=== PATIENT | female | born 1960 | race Caucasian/White ===

== ENCOUNTER → 2019-02-26 | Day surgery (SDC) | payer SELFPAY ==
[2019-02-25 14:18] LABS: BASOPHILS % 0.7 % (0.0-1.0); EOSINOPHILS # (AUTO) 0.1 (0.0-0.4); EOSINOPHILS % 1.8 % (0.0-6.0); HEMATOCRIT 32.6 % (34.2-44.1); HEMOGLOBIN 10.7 g/dL (12.0-16.0); LYMPHOCYTES # (AUTO) 2.1 (1.0-3.2); LYMPHOCYTES % 36.8 % (18.0-39.1); MEAN CORPUSCULAR HEMOGLOBIN 28.2 pg (28-32); MEAN CORPUSCULAR HGB CONC 32.8 g/dL (31-35); MEAN CORPUSCULAR VOLUME 85.8 fL (81-99); MONOCYTES # (AUTO) 0.5 (0.2-0.8); MONOCYTES % 8.1 % (4.4-11.3); NEUTROPHILS % 52.4 % (38.7-80.0); RED CELL DISTRIBUTION WIDTH 17.3 % (11.7-14.4)
[2019-02-25 14:20] LABS: PLATELET COUNT 68 x10e3/uL (140-360)
[2019-02-25 14:26] LABS: INR 1.35; PROTHROMBIN TIME 17.3 seconds (11.9-14.5)
[2019-02-25 14:27] LABS: PARTIAL THROMBOPLASTIN TIME 45.1 seconds (23.8-35.5)
[2019-02-25 14:36] LABS: ALANINE AMINOTRANSFERASE 18 IU/L (0-55); ALBUMIN 3.1 g/dL (3.5-5.0); ALKALINE PHOSPHATASE 187 IU/L (40-150); ANION GAP 10.5 mmol/L (8-16); BLOOD UREA NITROGEN 10 mg/dL (7-26); BUN/CREATININE RATIO 14 (6-25); CALCIUM 8.5 mg/dL (8.4-10.2); CARBON DIOXIDE 24 mmol/L (22-29); CHLORIDE 105 mmol/L (98-107); CREATININE, SERUM 0.69 mg/dL (0.57-1.11); EST GLOMERULAR FILTRATION RATE > 60 ML/MIN (60-); GLUCOSE 115 mg/dL (74-118); POTASSIUM 3.5 mmol/L (3.5-5.1); SODIUM 136 mmol/L (136-145)
[2019-02-25 16:42] LABS: HYPOCHROMASIA MODERATE; RBC MORPHOLOGY COMMENT NORMAL
[2019-02-25 16:43] LABS: PLATELET ESTIMATE MODERATELY DECREASED; POIKILOCYTOSIS SLIGHT
[2019-02-25 16:44] LABS: PLATELET MORPHOLOGY COMMENT NORMAL
[~2019-02-26] MED LIST: BACITRACIN 50,000 UNIT VIAL ONE; CALCIUM500 MG PO; CEFAZOLIN SOD 1 GM/NS 50ML 50 ML IV ONE; CISATRACURIUM BESYLATE IV ONE; DULCOLAX5 MG PO; FAMOTIDINE 20 MG/2 ML VIAL IV ONE; FENTANYL CITRATE/PF 100MCG/2 ML INJ ONE; FUROSEMIDE40 MG PO; HYDROMORPHONE 2MG/ML 2 MG/ML ML ONE; LACTULOSE20 GM/30 M PO; LIDOCAINE HCL 2% LOCAL INJ 5 ML SDV VIAL INJ ONE; METAMUCIL POWD174 GM PO; METOCLOPRAMIDE HCL 10 MG/2ML VIAL ONE; MULTIVITAMINS1 EAC7 PO; ONDANSETRON HCL INJ 2MG/ML 2ML 2 MG/ML VIAL ONE; PROMETHAZINE HCL (IM) 25 MG/ML VIAL ONE; PROPOFOL IV EMULSION 10 MG/ML 20 ML VIAL ONE; SEVOFLURANE INHAL SOLN 250 ML PEN BTL ONE; SODIUM CHLORIDE 0.9% 50ML 50 ML ONE; SPIRONOLACTONE25 MG PO; VITAMIN D400 UNIT PO
--- OUTSIDE RECORDS SUMMARY | 2019-02-26 06:09 | XMS REPORT | Clinical Summary ---
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 Active cetirizine (ZyrTEC) 10 MG Take 10 mg by 0 tablet mouth daily. Active cholecalciferol, vitamin Take 1,000 0 D3, (VITAMIN D3) 1,000 Units by unit tablet mouth. Active furosemide (LASIX) 20 mg Take 20 mg by 0 tablet mouth 2 (two) 7 times a day. Active lactulose (CHRONULAC) 10 Take 20 g by 0 gram/15 mL solution mouth 3 8 (three) times a day. Active montelukast (SINGULAIR) TK 1 T PO QPM 2 10 mg tablet 8 Active ondansetron (ZOFRAN) 4 MG TK 1 T PO Q 6 0 tablet H PRF NAUSEA 8 OR VOM Active pantoprazole (PROTONIX) Take 20 mg by 0 20 MG EC tablet mouth nightly. Active spironolactone Take 50 mg by 0 (ALDACTONE) 50 MG tablet mouth. 7 Active riFAXimin (XIFAXAN) 550 Take 550 mg 0 mg tablet by mouth 2 (two) times a day. Active ursodiol (ACTIGALL) 500 Take 300 mg 0 MG tablet by mouth daily with lunch. Active gabapentin (NEURONTIN) as needed. 2 300 mg capsule 9 Active multivitamin with Take 1 tablet 0 minerals tablet by mouth daily. Active calcium carbonate Chew 1 tablet 0 (CALCIUM 500) 500 mg daily. calcium (1,250 mg) chewable tablet Active psyllium husk (METAMUCIL Take by 0 ORAL) mouth. 07/27/2018 Discontinued calcium carbonate 500 Take 1,000 mg 0 mg/5 mL (1,250 mg/5 mL) by mouth. 07/27/2018 Discontinued cyanocobalamin, vitamin Take by 0 B-12, 1,000 mcg tablet mouth. extended release 07/27/2018 Discontinued GABAPENTIN ORAL Take by 0 mouth. 08/07/2018 oxyCODone (ROXICODONE) 10 Take 1 tablet 28 tablet 0 07/31/201 MG tablet (10 mg total) 9 by mouth every 6 (six) hours as needed for severe pain for up to 7 days. Max Daily Amount: 40 mg 08/17/2018 oxyCODone (ROXICODONE) 10 Take 1 tablet 28 tablet 0 08/10/201 MG tablet (10 mg total) 9 by mouth every 6 (six) hours as needed for moderate pain for up to 7 days. 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 07/30/2018 Encounters Care Team Description Date Type Specialty Tripp Mitchell II, MD S/P revision of total hip 07/30/18 (Primary Dx); Acquired left foot drop 11/11/2018 Office Visit Orthopedic Surgery Tripp Mitchell II, MD S/P revision of total hip 07/30/18 (Primary Dx); Aftercare following left hip joint replacement surgery 08/10/2018 Office Visit Orthopedic Surgery Brandy Escobar NP 07/30/2018 Anesthesia Orthopedic Surgery Event Tripp Mitchell II, MD REVISION LEFT TOTAL HIP ARTHROPLASTY, REMOVAL OF CEMENTED STEM, CONVERSION TO TOTAL HIP ARTHROPLASTY POSTERIOR 07/30/2018 Surgery Orthopedic Surgery Tripp Mitchell II, MD Other mechanical complication of internal left hip prosthesis, initial encounter (HCC) 07/30/2018 Hospital Orthopedic Surgery - Encounter 07/31/2018 Tripp Mitchell II, MD Pre-op testing (Primary Dx) 07/27/2018 Pre-Admit Pre-Admission Testing Testing Appointment Tripp Mitchell II, MD Preop examination (Primary Dx) 06/18/2018 Pre-Admit Pre-Admission Testing Testing Appointment Ronna Castanon Aftercare following left hip joint replacement surgery (Primary Dx); History of revision of total replacement of left hip joint; Status post left hip replacement; Status post revision of total hip replacement 06/18/2018 Orders Only Orthopedic Surgery Ronna Castanon 06/17/2018 Orders Only Orthopedic Surgery Tripp Mitchell II, MD History of left hip hemiarthroplasty; Left hip pain 06/08/2018 Lab Lab Tripp Mitchell II, MD 06/08/2018 Hospital Radiology Encounter Tripp Mitchell II, MD 06/08/2018 Hospital Radiology Encounter Tripp Mitchell II, MD 06/08/2018 Hospital Radiology Encounter Tripp Mitchell II, MD 06/08/2018 Hospital Radiology Encounter Tripp Mitchell II, MD 06/08/2018 Hospital Radiology Encounter Tripp Mitchell II, MD Left hip pain (Primary Dx); History of left hip hemiarthroplasty - 10/15/2015 at [facility] in [place] 06/08/2018 Office Visit Orthopedic Surgery after 02/25/2018 Family History Medical History Relation Name Comments Heart disease Brother Heart disease Father Heart disease Mother Relation Name Status Comments Brother Father Mother Social History Date Tobacco Use Types Packs/Day Years Used Quit: 01/2017 Former Smoker Cigarettes 20 Smokeless Tobacco: Never Used Alcohol Use Drinks/Week oz/Week Comments No quit 01/2017 Alcohol Habits Answer Date Recorded How often do you have a drink containing alcohol? Never 07/27/2018 How many drinks containing alcohol do you have on Not asked a typical day when you are drinking? How often do you have six or more drinks on one Not asked occasion? Sex Assigned at Date Recorded Not on file Industry Job Start Date Occupation Not on file Not on file Not on file Travel End Travel History Travel Start No recent travel history available. Last Filed Vital Signs Time Taken Vital Sign Reading 07/31/2018 10:15 AM OUTSIDE SALES CONSULTANT Blood Pressure 131/71 07/31/2018 10:15 AM OUTSIDE SALES CONSULTANT Pulse 66 07/31/2018 3:39 AM OUTSIDE SALES CONSULTANT Temperature 36.3 C (97.3 F) 07/31/2018 3:39 AM OUTSIDE SALES CONSULTANT Respiratory Rate 16 07/31/2018 10:15 AM OUTSIDE SALES CONSULTANT Oxygen Saturation 98% - Inhaled Oxygen - Concentration 07/30/2018 8:00 PM OUTSIDE SALES CONSULTANT Weight 73.9 kg (163 lb) 07/30/2018 8:00 PM OUTSIDE SALES CONSULTANT Height 165.1 cm (5' 5") 07/30/2018 8:00 PM OUTSIDE SALES CONSULTANT Body Mass Index 27.12 Plan of Treatment Health Maintenance Due Date Last Done Comments BREAST CANCER SCREENING 2009 COLONOSCOPY SCREENING 2009 SHINGLES VACCINES (#1) 2009 INFLUENZA VACCINE 02/11/2019 Implants Device Identifier Shelf Expiration Date Model / Serial / Lot Implanted Type Area Manufactur er 09/11/2027 [id number] / / [id number] Stem Hip Cmntls Tprd Procoat Pors Hip Joint Left: Hip DEPUY Ctng Std Ofst 160mm - [id number] Implants ORTHO Implanted: Qty: 1 on 07/30/2018 by Tripp Mitchell II, MD 05/13/2028 [id number] / / [id number] Screw Bone Canc 6.5x30mm - Hip Joint Left: Hip DEPUY [id number] Implants ORTHO Implanted: Qty: 1 on 07/30/2018 by Tripp Mitchell II, MD 05/13/2023 [id number] / / [id number] [place] Altrx Neutral 32mm X 50mm IPM Left: Hip DEPUY - [id number] IMPLANT ORTHOPAEDI Implanted: Qty: 1 on 07/30/2018 by [employer] Tripp Mitchell II, MD 04/12/2023 [id number] / / [id number] Endurance /Luster Total Hip System IPM Left: Hip DEPUY Head Femoral Tapered Ceramic 06/26 IMPLANT ORTHOPAEDI 36 5mm Biolox Delta Articuleze Ea. [employer] - [id number] Implanted: Qty: 1 on 07/30/2018 by Tripp Mitchell II, MD 04/12/2028 [id number] / / [id number] Shell Actblr Sector W/ Gription Orthopedic Left: Hip DEPUY 50mm Sel[place] - [id number] Trauma ORTHO Implanted: Qty: 1 on 07/30/2018 by Implants Tripp Mitchell II, MD Procedures Comments Procedure Name Priority Date/Time Associated Diagnosis XR HIP 2-3 VIEWS RIGHT Routine 11/11/2018 S/P revision of total hip 10:15 PM CDT XR HIP 2-3 VIEWS LEFT Routine 11/11/2018 S/P revision of total hip 11:31 AM CDT XR HIP 2-3 VIEWS LEFT Routine 08/10/2018 S/P revision of total hip 2:21 PM OUTSIDE SALES CONSULTANT Aftercare following left hip joint replacement surgery PROTHROMBIN TIME WITH INR Routine 07/31/2018 5:30 AM OUTSIDE SALES CONSULTANT HC COMPLETE BLD COUNT Routine 07/31/2018 W/AUTO DIFF 5:30 AM OUTSIDE SALES CONSULTANT ESTIMATED GFR Routine 07/31/2018 4:00 AM OUTSIDE SALES CONSULTANT COMPREHENSIVE METABOLIC Routine 07/31/2018 PANEL 4:00 AM OUTSIDE SALES CONSULTANT XR PELVIS 1 OR 2 VW Routine 07/30/2018 4:05 PM OUTSIDE SALES CONSULTANT POC GLUCOSE Routine 07/30/2018 3:42 PM OUTSIDE SALES CONSULTANT SURGICAL PATHOLOGY Routine 07/30/2018 REQUEST 3:16 PM OUTSIDE SALES CONSULTANT TRANSFUSE RED BLOOD CELLS Routine 07/30/2018 2:52 PM OUTSIDE SALES CONSULTANT XR PELVIS 1 OR 2 VW Routine 07/30/2018 2:42 PM OUTSIDE SALES CONSULTANT ARTERIAL LINE Routine 07/30/2018 2:34 PM OUTSIDE SALES CONSULTANT Procedure Note - Niall Becerra CRNA - 07/30/2018 2:34 PM OUTSIDE SALES CONSULTANT Arterial line Performed by: Niall Becerra CRNA Authorized by: Neno Kumari MD Patient Location: OR Start Time: 07/30/2018 12:45 PM End Time: 07/30/2018 12:47 PM Staff: Aurorao sanjuana: Neno Kumari MD Performed by: Nba wei Pre-proced ure: patient identified , IV checked, site and side verified, risks and benefits discussed, procedure verified, surgical consent complete, patient position confirmed, monitors and equipment checked and pre-op evaluation complete MSBT: antiseptic used, all elements of maximal sterile barrier technique followed, hand hygiene performed, cap/gown used by other personnel and solutions labeled Indication s: Indication s: hemodynami c monitoring Anesthesia : Anesthesia : General Procedure Details: Arterial Line placement: Placed post induction Line placement site: Radial Line placement side: Right Arterial line gauge: 20 G Number of attempts: 2 Ultrasound guidance used: Yes Post-proc edure: Post-proce dure: Sterile dressing applied Post procedure circulatio n, sensation, movement: Normal Patient tolerance: Patient tolerated the procedure well with no immediate complicati ons XR PELVIS 1 OR 2 VW Routine 07/30/2018 2:27 PM OUTSIDE SALES CONSULTANT TRANSFUSE RED BLOOD CELLS Routine 07/30/2018 2:24 PM OUTSIDE SALES CONSULTANT PROTHROMBIN TIME WITH INR Routine 07/30/2018 2:08 PM OUTSIDE SALES CONSULTANT PARTIAL THROMBOPLASTIN Routine 07/30/2018 TIME (PTT) 2:08 PM OUTSIDE SALES CONSULTANT GLUCOSE LEVEL, SYRINGE Routine 07/30/2018 2:08 PM OUTSIDE SALES CONSULTANT IONIZED CALCIUM, ARTERIAL Routine 07/30/2018 2:08 PM OUTSIDE SALES CONSULTANT HEMOGLOBIN, SYRINGE Routine 07/30/2018 2:08 PM OUTSIDE SALES CONSULTANT POTASSIUM, SYRINGE Routine 07/30/2018 2:08 PM OUTSIDE SALES CONSULTANT ARTERIAL BLOOD GAS, Routine 07/30/2018 CORRECTED 2:08 PM OUTSIDE SALES CONSULTANT BODY FLUID CONSULT Routine 07/30/2018 1:59 PM OUTSIDE SALES CONSULTANT CELL COUNT AND Routine 07/30/2018 DIFFERENTIAL, BODY FLUID 1:59 PM OUTSIDE SALES CONSULTANT TISSUE CULTURE Timed 07/30/2018 1:49 PM OUTSIDE SALES CONSULTANT AFB STAIN Timed 07/30/2018 1:49 PM OUTSIDE SALES CONSULTANT GRAM STAIN Timed 07/30/2018 1:49 PM OUTSIDE SALES CONSULTANT FUNGUS SMEAR Timed 07/30/2018 1:49 PM OUTSIDE SALES CONSULTANT AFB CULTURE Timed 07/30/2018 Other mechanical 1:49 PM OUTSIDE SALES CONSULTANT complication of internal left hip prosthesis, initial encounter (HCC) FUNGUS CULTURE Timed 07/30/2018 Other mechanical 1:49 PM OUTSIDE SALES CONSULTANT complication of internal left hip prosthesis, initial encounter (HCC) ANAEROBIC CULTURE Timed 07/30/2018 Other mechanical 1:49 PM OUTSIDE SALES CONSULTANT complication of internal left hip prosthesis, initial encounter (HCC) TISSUE CULTURE Timed 07/30/2018 1:43 PM OUTSIDE SALES CONSULTANT AFB STAIN Timed 07/30/2018 1:43 PM OUTSIDE SALES CONSULTANT GRAM STAIN Timed 07/30/2018 1:43 PM OUTSIDE SALES CONSULTANT FUNGUS SMEAR Timed 07/30/2018 1:43 PM OUTSIDE SALES CONSULTANT AFB CULTURE Timed 07/30/2018 Other mechanical 1:43 PM OUTSIDE SALES CONSULTANT complication of internal left hip prosthesis, initial encounter (HCC) FUNGUS CULTURE Timed 07/30/2018 Other mechanical 1:43 PM OUTSIDE SALES CONSULTANT complication of internal left hip prosthesis, initial encounter (HCC) ANAEROBIC CULTURE Timed 07/30/2018 Other mechanical 1:43 PM OUTSIDE SALES CONSULTANT complication of internal left hip prosthesis, initial encounter (HCC) AR AN ELECTIVE Routine 07/30/2018 ENDOTRACHEAL AIRWAY 1:32 PM OUTSIDE SALES CONSULTANT Procedure Note - Niall Becerra CRNA - 07/30/2018 1:32 PM OUTSIDE SALES CONSULTANT ANESTHESIA INTUBATION Performed by: Niall Becerra CRNA Authorized by: Neno Kumari MD Location: OR Urgency: Elective Difficult Airway: No Preoxygena farideh with 100% O2: Yes C-spine Precaution s Maintained Throughout : No Mask Ventilatio n: Easy mask Final Airway Type: Endotrache al airway Final Endotrache al Airway: ETT Cuffed: Yes Technique Used: Direct laryngosco py Devices/Me thods Used in Placement: Intubatin g stylet Insertion Site: Oral Blade Type: Reddy Laryngosco pe Blade/Vide olaryngosc ope Blade Size: 2 ETT Size (mm): 7.0 Cuff at minimum occlusion pressure: Yes Measured from: Lips ETT to Lips (cm): 22 Placement Verified by: CO2 detection, direct visualizat ion and equal breath sounds Laryngosco pic view: Grade IIa - partial view of glottis Rapid Sequence Induction (RSI): No Modified RSI: No Number of Attempts at Approach: 1 Pt denitrogen ated adequately , BMV establishe d, Eyes taped upon LOC, DLX1, Grade II view with BURP, ETT threaded through vocal cords with ease, +ETCO2, Equal and bilateral breath sounds, ETT secured with silk tape. Teeth/lips /gums/VC unchanged from baseline. JOINT FLUID CULTURE Timed 07/30/2018 1:29 PM OUTSIDE SALES CONSULTANT AFB STAIN Timed 07/30/2018 1:29 PM OUTSIDE SALES CONSULTANT GRAM STAIN Timed 07/30/2018 1:29 PM OUTSIDE SALES CONSULTANT FUNGUS SMEAR Timed 07/30/2018 1:29 PM OUTSIDE SALES CONSULTANT AFB CULTURE Timed 07/30/2018 Other mechanical 1:29 PM OUTSIDE SALES CONSULTANT complication of internal left hip prosthesis, initial encounter (HCC) FUNGUS CULTURE Timed 07/30/2018 Other mechanical 1:29 PM OUTSIDE SALES CONSULTANT complication of internal left hip prosthesis, initial encounter (HCC) ANAEROBIC CULTURE Timed 07/30/2018 Other mechanical 1:29 PM OUTSIDE SALES CONSULTANT complication of internal left hip prosthesis, initial encounter (HCC) TRANSFUSE PLATELET Routine 07/30/2018 PHERESIS 1:09 PM OUTSIDE SALES CONSULTANT REVISION, ARTHROPLASTY, 07/30/2018 Other mechanical HIP 11:45 AM OUTSIDE SALES CONSULTANT complication of internal left hip prosthesis, initial encounter (HCC) Special Needs EST 2HRS, DEPUY PREPARE PLATELET PHERESIS Routine 07/30/2018 9:32 AM OUTSIDE SALES CONSULTANT PREPARE PLATELET PHERESIS Routine 07/27/2018 3:44 PM OUTSIDE SALES CONSULTANT PREPARE RBC Routine 07/27/2018 3:44 PM OUTSIDE SALES CONSULTANT ESTIMATED GFR Routine 07/27/2018 3:44 PM OUTSIDE SALES CONSULTANT PROTHROMBIN TIME WITH INR Routine 07/27/2018 Pre-op testing 3:44 PM OUTSIDE SALES CONSULTANT PARTIAL THROMBOPLASTIN Routine 07/27/2018 Pre-op testing TIME (PTT) 3:44 PM OUTSIDE SALES CONSULTANT TYPE AND SCREEN Routine 07/27/2018 Pre-op testing 3:44 PM OUTSIDE SALES CONSULTANT URINALYSIS SCREEN AND Routine 07/27/2018 Pre-op testing MICROSCOPY, WITH REFLEX 3:44 PM OUTSIDE SALES CONSULTANT TO CULTURE COMPREHENSIVE METABOLIC Routine 07/27/2018 Pre-op testing PANEL 3:44 PM OUTSIDE SALES CONSULTANT HC COMPLETE BLD COUNT Routine 07/27/2018 Pre-op testing W/AUTO DIFF 3:44 PM OUTSIDE SALES CONSULTANT URINE CULTURE Routine 07/27/2018 3:44 PM OUTSIDE SALES CONSULTANT URINE CULTURE Routine 06/18/2018 10:15 AM OUTSIDE SALES CONSULTANT ECG PRE/POST OP Routine 06/18/2018 Preop examination 10:11 AM OUTSIDE SALES CONSULTANT ESTIMATED GFR Routine 06/18/2018 10:05 AM OUTSIDE SALES CONSULTANT HC COMPLETE BLD COUNT Routine 06/18/2018 Preop examination W/AUTO DIFF 10:05 AM OUTSIDE SALES CONSULTANT URINALYSIS SCREEN AND Routine 06/18/2018 Preop examination MICROSCOPY, WITH REFLEX 10:05 AM OUTSIDE SALES CONSULTANT TO CULTURE TYPE AND SCREEN Routine 06/18/2018 Preop examination 10:05 AM OUTSIDE SALES CONSULTANT HEMOGLOBIN A1C Routine 06/18/2018 Preop examination 10:05 AM OUTSIDE SALES CONSULTANT HEPATIC FUNCTION PANEL Routine 06/18/2018 Preop examination 10:05 AM OUTSIDE SALES CONSULTANT PARTIAL THROMBOPLASTIN Routine 06/18/2018 Preop examination TIME (PTT) 10:05 AM OUTSIDE SALES CONSULTANT PROTHROMBIN TIME WITH INR Routine 06/18/2018 Preop examination 10:05 AM OUTSIDE SALES CONSULTANT BASIC METABOLIC PANEL Routine 06/18/2018 Preop examination 10:05 AM OUTSIDE SALES CONSULTANT C-REACTIVE PROTEIN Routine 06/08/2018 History of left hip 2:44 PM OUTSIDE SALES CONSULTANT hemiarthroplasty - 10/15/2015 at [facility] in [place] Left hip pain SEDIMENTATION RATE Routine 06/08/2018 History of left hip 2:44 PM OUTSIDE SALES CONSULTANT hemiarthroplasty - 10/15/2015 at [facility] in [place] Left hip pain XR LOWER EXTREMITY Routine 05/12/2018 EXTERNAL STUDY 12:00 AM CDT after 02/25/2018 Results * XR Hip 2-3 View Right (11/11/2018 10:15 PM CDT) Specimen Narrative Performed At [facility] Not performed Performing Organization Address [facility] Phone Number [facility] [address] [place] [address] * XR Hip 2-3 View Left (11/11/2018 11:31 AM CDT) Only the most recent of 2 results within the time period is included. Specimen Narrative Performed At [facility] Well seated, satisfactory aligned total hip arthroplasty.No evidence of fracture, subsidence, loosening, or lysis. Performing Organization Address City/[facility]/Zipcode Phone Number [facility] [address] [place] [address] * Prothrombin time with INR (07/31/2018 5:30 AM OUTSIDE SALES CONSULTANT) Only the most recent of 4 results within the time period is included. Prothrombin 21.3 (H) 11.5 - 14.5 sec [facility] INR 1.9 [place] Comment: [facility] International Normalized HOSPITAL Ratio (INR) is a therapeutic monitoring tool for patients who are stable on oral anticoagulant therapy. An INR of 2.0-3.0 is suggested for deep vein thrombosis/pulmonary embolism. Specimen Blood Performing Organization Address City/[facility]/Zipcode Phone Number [facility] DEPARTMENT OF [address] [place] [id number] PATHOLOGY AND GENOMIC MEDICINE [address] * CBC with platelet and differential (07/31/2018 5:30 AM OUTSIDE SALES CONSULTANT) Only the most recent of 3 results within the time period is included. WBC 6.33 4.50 - 11.00 k/uL [facility] RBC 3.43 (L) 4.20 - 5.50 m/uL [facility] HGB 9.6 (L) 12.0 - 16.0 g/dL [facility] HCT 29.5 (L) 37.0 - 47.0 % [facility] MCV 86.0 82.0 - 100.0 fL [facility] MCH 28.0 27.0 - 34.0 pg [facility] MCHC 32.5 31.0 - 37.0 g/dL [facility] RDW - SD 56.6 (H) 37.0 - 55.0 fL [facility] MPV 10.8 8.8 - 13.2 fL [facility] Platelet count 87 (L) 150 - 400 k/uL [facility] Nucleated RBC 0.00 /100 WBC [facility] Neutrophils 83.2 (H) 39.0 - 69.0 % [facility] Lymphocytes 10.1 (L) 25.0 - 45.0 % [facility] Monocytes 6.0 0.0 - 10.0 % [facility] Eosinophils 0.0 0.0 - 5.0 % [facility] Basophils 0.2 0.0 - 1.0 % [facility] Immature 0.5Comment: "Immature 0.0 - 1.0 % [place] granulocytes granulocytes" (promyelocytes, [facility] myelocytes, metamyelocytes) HOSPITAL Specimen Blood Performing Organization Address City/[facility]/Zipcode Phone Number [facility] DEPARTMENT OF [address] [place] [address] PATHOLOGY AND GENOMIC MEDICINE [address] * Estimated GFR (07/31/2018 4:00 AM OUTSIDE SALES CONSULTANT) Only the most recent of 3 results within the time period is included. Estimated GFR >=90 mL/min/1.73 m2 [place] Comment: [facility] rpretation G1 >=90 Normal or high G2 60-89Mildly decreased [id number] Mildly to moderately decreased [id number] Moderately to severely decreased G4 15-29Severely decreased G5 <15Kidney failure The eGFR was calculated using the Chronic Kidney Disease Epidemiology Collaboration (CKD-EPI) equation. Interpretation is based on recommendations of the National Kidney Foundation-Kidney Disease Outcomes Quality Initiative (NKF-KDOQI) published in 2014. Specimen Plasma specimen Performing Organization Address City/State/Zipcode Phone Number [facility] DEPARTMENT OF [address] [place] [address] PATHOLOGY AND GENOMIC MEDICINE [address] * Comprehensive metabolic panel (07/31/2018 4:00 AM OUTSIDE SALES CONSULTANT) Only the most recent of 2 results within the time period is included. Sodium 137 135 - 148 mEq/L [facility] Potassium 4.3 3.5 - 5.0 mEq/L [facility] Chloride 105 98 - 112 mEq/L [facility] CO2 21 (L) 24 - 31 mEq/L [facility] Anion gap 11@ANIO 7 - 15 mEq/L [facility] BUN 12 6 - 20 mg/dL [facility] Creatinine 0.60 0.50 - 0.90 mg/dL [facility] Glucose 162 (H) 65 - 99 mg/dL [facility] Calcium 8.8 8.3 - 10.2 mg/dL [facility] Protein 5.9 (L) 6.3 - 8.3 g/dL [place] Comment: [facility] HOSPITAL 4.6-7.0 g/dL 1 week 4.4-7.6 g/dL 7 months-1year 5.1-7.3 g/dL 1-2 years5.6-7 .5 g/dL >3 years6.0-8 .0 g/dL 18-150 6.3-8.3 g/dL Albumin 2.9 (L) 3.5 - 5.0 g/dL [facility] A/G ratio 1.0 0.7 - 3.8 [facility] Alkaline 156 (H) 35 - 104 U/L [place] phosphatase [facility] AST 34 10 - 35 U/L [facility] ALT 24 5 - 50 U/L [facility] Total bilirubin 3.7 (H) 0.0 - 1.2 mg/dL [facility] Specimen Plasma specimen Performing Organization Address City/State/Zipcode Phone Number [facility] DEPARTMENT OF [address] [place] [address] PATHOLOGY AND GENOMIC MEDICINE [address] * XR Pelvis 1 Or 2 Vw (07/30/2018 4:05 PM OUTSIDE SALES CONSULTANT) Only the most recent of 3 results within the time period is included. Specimen Narrative Performed At EXAMINATION:XR PELVIS 1 OR 2 VW [facility] CLINICAL HISTORY:Post operative COMPARISON:None. IMPRESSION: Single frontal view reveals recent postoperative changes from left total hip orthoplasty. Orthopedic hardware appears intact. Subcutaneous emphysema is seen. [id number] Procedure Note Hm Interface, Radiology Results Incoming - 07/30/2018 4:26 PM OUTSIDE SALES CONSULTANT EXAMINATION: XR PELVIS 1 OR 2 VW CLINICAL HISTORY: Post operative COMPARISON: None. IMPRESSION: Single frontal view reveals recent postoperative changes from left total hip orthoplasty. Orthopedic hardware appears intact. Subcutaneous emphysema is seen. [id number] Performing Organization Address City/[facility]/Zipcode Phone Number [facility] [address] [place] [address] * POC glucose (07/30/2018 3:42 PM OUTSIDE SALES CONSULTANT) Pathologist [facility] POC glucose 107 (H) 65 - 99 mg/dL [place] Comment: [facility] No Action Needed [facility] Notified RN Meter ID: [id number] Options Trader: Fern Savage Specimen Performing Organization Address [facility]ercode Phone Number [facility] DEPARTMENT OF [address] [place] [address] PATHOLOGY [place] [address] HOSPITAL * Surgical pathology request (07/30/2018 3:16 PM OUTSIDE SALES CONSULTANT) [facility] DEPARTMENT OF PATHOLOGY AND GENOMIC MEDICINE Surgical See link below for PDF Lab [facility] DEPARTMENT pathology Report OF PATHOLOGY report AND GENOMIC MEDICINE Result status This is Final Report for [facility] DEPARTMENT [id number] OF PATHOLOGY AND GENOMIC MEDICINE Specimen Performing Organization Address [facility] Phone Number [facility] DEPARTMENT OF [address] [place] [address] PATHOLOGY AND GENOMIC MEDICINE * Transfuse RBC (07/30/2018 2:52 PM OUTSIDE SALES CONSULTANT) Only the most recent of 2 results within the time period is included. * Potassium, syringe (07/30/2018 2:08 PM OUTSIDE SALES CONSULTANT) Potassium, 3.6 3.5 - 5.0 mEq/L [place] syringe [facility] Specimen Blood Performing Organization Address City/[facility]/Zipcode Phone Number [facility] DEPARTMENT OF [address] [place] [address] PATHOLOGY AND GENOMIC [place] [address] OUTPATIENT CENTER * Ionized calcium, arterial (07/30/2018 2:08 PM OUTSIDE SALES CONSULTANT) Ionized 1.03 (L) 1.11 - 1.32 mmol/L [place] calcium, [facility] arterial [facility] Specimen Blood Performing Organization Address City/State/Zipcode Phone Number [facility] [place] [address] PATHOLOGY [place] [address] OUTPATIENT CENTER * Hemoglobin, syringe (07/30/2018 2:08 PM OUTSIDE SALES CONSULTANT) Hemoglobin, 8.2 (L) 12.0 - 16.0 g/dL [place] syringe [facility] Specimen Blood Performing Organization Address City/[facility] Phone Number [facility] [place] [address] PATHOLOGY [place] [address] OUTPATIENT [place] * Glucose level, syringe (07/30/2018 2:08 PM OUTSIDE SALES CONSULTANT) Glucose, 90 65 - 99 mg/dL [place] syringe [facility] Specimen Blood Performing Organization Address City/[facility] Phone Number [facility] [place] [address] PATHOLOGY [place] [address] OUTPATIENT [place] * Arterial blood gas, corrected (07/30/2018 2:08 PM OUTSIDE SALES CONSULTANT) pH, arterial 7.36 7.35 - 7.45 [facility] pCO2, arterial 41 35 - [address] [facility] pO2, arterial 233 (H) 80 - 90 mmHg [place] [facility] Temperature, 37.0 Degrees C [place] Celsius [facility] O2 saturation, 100 95 - 100 % [place] arterial [facility] pH, arterial 7.36 [place] corrected [facility] pCO2, arterial 41 mmHg [place] corrected [facility] pO2, arterial 233 mmHg [place] corrected [facility] Base excess, -2 -2 - 2 mEq/L [place] arterial [facility] Specimen Blood Performing Organization Address City/[facility] Phone Number [facility] [place] [address] PATHOLOGY [place] [address] OUTPATIENT CENTER * Partial thromboplastin time, activated (07/30/2018 2:08 PM OUTSIDE SALES CONSULTANT) Only the most recent of 3 results within the time period is included. Pathologist [facility] PTT 50.1 (H) 23.0 - 36.0 sec [place] Comment: [facility] PTT therapeutic range for OUTPATIENT unfractionated heparin is CENTER 61.0-112.0 seconds which corresponds to Anti-Xa 0.3-0.7 U/ml. Specimen Blood Performing Organization Address City/[facility] Phone Number [facility] DEPARTMENT OF [address] [place] [address] PATHOLOGY AND GENOMIC MEDICINE [facility] [address] [place] [address] OUTPATIENT CENTER * Body fluid consult (07/30/2018 1:59 PM OUTSIDE SALES CONSULTANT) Pathologist [facility] Body fluid Done [place] consult Comment: [facility] The large cluster of cells HOSPITAL represent reactive synovial lining cells, with few multinucleated cells consistent with osteoclasts.Negative for malignancy. Reviewed by Rashid Cardona M.D. Specimen Fluid Narrative Performed At [facility] DEPARTMENT OF PATHOLOGY AND GENOMIC MEDICINE Performing Organization Address [facility] Cent[facility]ode Phone Number [facility] DEPARTMENT OF [address] [place] [address] PATHOLOGY AND GENOMIC MEDICINE [address] * Cell count and differential, body fluid (07/30/2018 1:59 PM OUTSIDE SALES CONSULTANT) Pathologist [facility] Misc fluid type SynovialComment: [facility] Color, fluid Yellow [facility] Appearance, Slightly hazy [facility] RBC, fluid SEE COMMENTComment: 2+ (500 - /CMM [place] 10,000 RBC/CMM) [facility] Nucleated 592 /CMM [place] cells, [facility] Fluid See Diff [place] mononuclear [facility] Neutrophils, 7 % [facility] Lymphocytes, 17 % [facility] Macrophages, 76 % [facility] Specimen Fluid Narrative Performed At [facility] DEPARTMENT OF PATHOLOGY AND GENOMIC MEDICINE Performing Organization Address City/[facility]/Zipcode Phone Number [facility] [place] [address] PATHOLOGY AND GENOMIC MEDICINE [address] * Fungus smear (07/30/2018 1:49 PM OUTSIDE SALES CONSULTANT) Only the most recent of 3 results within the time period is included. Fungus smear No fungi observed. [place] Comment: [facility] Specimen Information HOSPITAL Specimen Source: Tissue Specimen Site: Hip #C Specimen Tissue Performing Organization Address City/[facility]/Zipcode Phone Number [facility] DEPARTMENT OF [address] [place] [address] PATHOLOGY AND [facility] MEDICINE [place] [facility] [address] [place] [address] HOSPITAL * AFB culture (07/30/2018 1:49 PM OUTSIDE SALES CONSULTANT) Only the most recent of 3 results within the time period is included. AFB culture No growth after 6 weeks of [place] isolate incubation. [facility] Comment: [facility]OSPITAL Specimen Information Specimen Source: Tissue Specimen Site: Hip #C Specimen Tissue - Hip Performing Organization Address City/[facility]/Zipcode Phone Number [facility] [place] [address] PATHOLOGY AND [facility] MEDICINE [place] [facility] [address] [place] [address] HOSPITAL * Tissue culture (07/30/2018 1:49 PM OUTSIDE SALES CONSULTANT) Only the most recent of 2 results within the time period is included. Tissue culture No growth after 3 days. [place] isolate Comment: [facility] Specimen Information HOSPITAL Specimen Source: Tissue Specimen Site: Hip #C Specimen Tissue Performing Organization Address [facility] Phone Number [facility] [place] [address] PATHOLOGY AND [facility] MEDICINE [place] [facility] [address] [place] [address] * Gram stain (07/30/2018 1:49 PM OUTSIDE SALES CONSULTANT) Only the most recent of 3 results within the time period is included. Gram stain Few WBC's [place] isolate No organisms seen [facility] Comment: HOSPITAL Specimen Information Specimen Source: Tissue Specimen Site: Hip #C Specimen Tissue Performing Organization Address City/[facility]/Zipcode Phone Number [facility] DEPARTMENT OF [address] [place] [address] PATHOLOGY AND [facility] MEDICINE [place] [facility] [address] [place] [address] HOSPITAL * AFB stain (07/30/2018 1:49 PM OUTSIDE SALES CONSULTANT) Only the most recent of 3 results within the time period is included. AFB stain No acid fast bacilli (AFB) [place] seen. [facility] Comment: HOSPITAL Specimen Information Specimen Source: Tissue Specimen Site: Hip #C Specimen Tissue Performing Organization Address City/[facility] Phone Number [facility] [place] [address] PATHOLOGY AND [facility] MEDICINE [address] * Fungus culture (07/30/2018 1:49 PM OUTSIDE SALES CONSULTANT) Only the most recent of 3 results within the time period is included. Fungus culture No growth after 4 weeks of [place] isolate incubation. [facility] Comment: HOSPITAL Specimen Information Specimen Source: Tissue Specimen Site: Hip #C Specimen Tissue - Hip Performing Organization Address [facility] Cent[facility]ode Phone Number [facility] [place] [address] PATHOLOGY AND [facility] MEDICINE [address] * Anaerobic culture (07/30/2018 1:49 PM OUTSIDE SALES CONSULTANT) Only the most recent of 3 results within the time period is included. Pathologist [facility] Anaerobic No anaerobic organisms [place] culture isolate isolated. [facility] Comment: HOSPITAL Specimen Information Specimen Source: Tissue Specimen Site: Hip #C Specimen Tissue - Hip Performing Organization Address [facility] Phone Number [facility] [place] [address] PATHOLOGY AND [facility] MEDICINE [address] * Joint fluid culture (07/30/2018 1:29 PM OUTSIDE SALES CONSULTANT) Pathologist [facility] Joint fluid No growth after 4 days. [place] culture isolate Comment: [facility] Specimen Information HOSPITAL Specimen Source: Joint Fluid Specimen Site: LEFT HIP Specimen Joint fluid Performing Organization Address City/[facility] Phone Number [facility] [place] [address] PATHOLOGY AND [facility] MEDICINE [address] * Transfuse platelets (07/30/2018 1:09 PM OUTSIDE SALES CONSULTANT) * Urinalysis screen and microscopy, with reflex to culture (07/27/2018 3:44 PM OUTSIDE SALES CONSULTANT) Only the most recent of 2 results within the time period is included. Specimen site Clean catch [facility] Color, UA Dark Yellow [facility] Appearance, UA Clear [facility] Specific 1.023 1.001 - 1.035 [place] gravity, [facility] pH, UA 6.0 5.0 - 8.5 [facility] Protein, UA 1+ (A) Negative [facility] Glucose, UA Negative Negative [facility] Ketones, UA Negative Negative [facility] Bilirubin, UA Negative Negative [facility] Blood, UA Small (A) Negative [facility] Nitrite, UA Negative Negative [facility] Urobilinogen, 4.0 (A) <2.0 [facility] Leukocyte Negative Negative [place] esterase, UA [facility] Epithelial 7 /HPF [place] cells, UA [facility] WBC, UA 1 0 - 4 /HPF [facility] RBC, UA 1 0 - 5 /HPF [facility] Bacteria, UA Few None seen [facility] Yeast, UA None seen [facility] Yeast with None seen [place] [facility] Specimen Urine Performing Organization Address City/[facility] Phone Number [facility] DEPARTMENT OF [address] [place] [address] PATHOLOGY AND [facility] MEDICINE [address] * Prepare platelet pheresis (07/27/2018 3:44 PM OUTSIDE SALES CONSULTANT) Product name Apheresis PLT, Leukored IRR #2 [facility] Unit number [id number] [facility] Product code [id number] [facility] Dispense status Transfused [facility] Blood [id number] [place] expiration date [facility] Blood type code 7300 [facility] Blood type B POSITIVE [facility] Specimen Performing Organization Address City/[facility] Phone Number [facility] [place] [address] PATHOLOGY AND GENOMIC MEDICINE [address] * Prepare RBC (07/27/2018 3:44 PM OUTSIDE SALES CONSULTANT) Product name Apheresis Red Cell AS3 #2 LR [facility] Unit number [id number] [facility] Product code [id number] [facility] Dispense status Transfused [facility] Blood [id number] [place] expiration date [facility] Blood type code 5100 [facility] Blood type O POSITIVE [facility] Product name Red Blood Cells -1, Leukored [facility] Unit number [id number] [facility] Product code [id number] [facility] Dispense status Transfused [facility] Blood [id number] [place] expiration date [facility] Blood type code 5100 [facility] Blood type O POSITIVE [facility] Specimen Performing Organization Address City/State/Zipcode Phone Number [facility] DEPARTMENT [address] [address] PATHOLOGY AND GENOMIC MEDICINE [address] * Type and screen (07/27/2018 3:44 PM OUTSIDE SALES CONSULTANT) Only the most recent of 2 results within the time period is included. Pathologist [facility] ABO grouping B [facility] Rh type POS [facility] Antibody screen NEG [place] (gel) [facility] Specimen Blood Performing Organization Address City/State/Zipcode Phone Number [facility] [place] [address] PATHOLOGY AND GENOMIC MEDICINE [address] * Urine culture (07/27/2018 3:44 PM OUTSIDE SALES CONSULTANT) Only the most recent of 2 results within the time period is included. Pathologist [facility] Urine culture SEE COMMENTComment: [place] Bacteriuria screen negative. [facility] Specimen Performing Organization Address City/State/Zipcode Phone Number [facility] DEPARTMENT [address] [address] PATHOLOGY AND GENOMIC MEDICINE [address] * ECG Pre/Post Op (06/18/2018 10:11 AM OUTSIDE SALES CONSULTANT) Pathologist [facility] Ventricular 67 [facility] MUSE rate Atrial rate 67 [facility] AR interval 84 [facility] QRSD interval 82 [facility] QT interval 452 [facility] QTC interval 477 [facility] QRS axis 1 68 [facility] T wave axis 59 [facility] EKG impression Sinus rhythm with short [facility] AR-Otherwise normal ECG-No previous ECGs available- Specimen Narrative Performed At Performing Organization Address City/State/[place] [address] * Hemoglobin A1c (06/18/2018 10:05 AM OUTSIDE SALES CONSULTANT) Pathologist [facility] Hemoglobin A1C 4.5 4.0 - 5.6 % [place] Comment: [facility] HbA1c cutoffs for diagnosing HOSPITAL diabetes: 4.0% - 5.6%=normal 5.7% - 6.4%=increased risk for diabetes (prediabetes) >=6.5%=diabetes Goals for glycemic control (ADA 2016) < 7.0%Target for non adults with diabetes. More or less stringent targets may be appropriate for individual patients. <7.5% Target for Children and adolescents with type 1 diabetes. Specimen Blood Performing Organization Address City/[facility]/Zipcode Phone Number [facility] DEPARTMENT OF [address] [place] [address] PATHOLOGY AND GENOMIC MEDICINE [address] * Hepatic function panel (06/18/2018 10:05 AM OUTSIDE SALES CONSULTANT) [facility] Albumin 2.6 (L) 3.5 - 5.0 g/dL [facility] Total bilirubin 3.5 (H) 0.0 - 1.2 mg/dL [facility] Bilirubin 1.4 (H) 0.0 - 0.3 mg/dL [place] direct [facility] Alkaline 236 (H) 35 - 104 U/L [place] phosphatase [facility] Protein 6.2 (L) 6.3 - 8.3 g/dL [place] Comment: [facility] HOSPITAL 4.6-7.0 g/dL 1 week 4.4-7.6 g/dL 7 months-1year 5.1-7.3 g/dL 1-2 years5.6-7 .5 g/dL >3 years6.0-8 .0 g/dL 18-150 6.3-8.3 g/dL ALT 33 5 - 50 U/L [facility] AST 45 (H) 10 - 35 U/L [facility] Specimen Plasma specimen Performing Organization Address City/[facility]/Zipcode Phone Number [facility] DEPARTMENT OF [address] [place] [address] PATHOLOGY AND GENOMIC MEDICINE [address] * Basic metabolic panel (06/18/2018 10:05 AM OUTSIDE SALES CONSULTANT) [facility] Sodium 140 135 - 148 mEq/L [facility] Potassium 3.9 3.5 - 5.0 mEq/L [facility] Chloride 104 98 - 112 mEq/L [facility] CO2 24 24 - 31 mEq/L [facility] Anion gap 12@ANIO 7 - 15 mEq/L [facility] BUN 11 6 - 20 mg/dL [facility] Creatinine 0.69 0.50 - 0.90 mg/dL [facility] Glucose 85 65 - 99 mg/dL [facility] Calcium 8.7 8.3 - 10.2 mg/dL [facility] Specimen Plasma specimen Performing Organization Address City/State/Zipcode Phone Number [facility] DEPARTMENT OF [address] [place] [address] PATHOLOGY AND GENOMIC MEDICINE [address] * Sedimentation rate (06/08/2018 2:44 PM OUTSIDE SALES CONSULTANT) Sedimentation 9 < OR=30 mm/h [x+1] DIAGNOSTICS [place] Specimen Blood Resulting Agency Comment Performing Organization Information: Site ID: [id number] Name: [facility] Address: [address] [place] [id number] Director: Silvia Croft Performing Organization Address [facility] [place] [address] * C-reactive protein (06/08/2018 2:44 PM OUTSIDE SALES CONSULTANT) CRP 2.2 <8.0 mg/L [email or web address] [place] Specimen Blood Resulting Agency Comment Performing Organization Information: Site ID: RGA Name: [facility] Address: [address] [place] [id number] Director: Silvia Croft Performing Organization Address [facility] Phone [place] [address] * XR Lower Extremity External Study (05/12/2018 12:00 AM CDT) Specimen Narrative Performed At This exam was not acquired at a [facility] facility and has not been [facility] interpreted by a [facility] Provider.The exam was imported into our imaging system for comparisons purposes. Performing Organization Address City/State/Zipcode Phone Number [facility] [address] [place] [phone] after 02/25/2018 Insurance Type Payer Benefit Subscriber ID Effective Phone Address Plan / Dates Group xxxxxxxxx 2017-[id number] [facility] ([place]) [place] [address] Advance Directives Patient has advance care planning documents on file. For more information, giancarlo campbell contact: Issa Flores [address] [place] [address]
--- OUTSIDE RECORDS SUMMARY | 2019-02-26 06:10 | XMS REPORT | Clinical Summary ---
Author Author LETICIA [facility] Organization [facility] Address Unknown Phone Unavailable Care Team Providers Care Staff Air Tactical Officer Name Role Phone India Multani MD MPH PCP Allergies No Known Allergies Medications End Date Status Medication Sig Dispensed Refills Start Date Active cetirizine (ZYRTEC) 10 MG Take 10 mg by 0 tablet mouth daily. Active CALCIUM CARBONATE Take 1,000 mg 0 (CALCIUM 500 ORAL) by mouth daily. Active psyllium (METAMUCIL Take 1 packet 0 SUGAR-FREE) 3.4 gram by mouth packet daily as needed . Active bisacodyl (DULCOLAX) 5 mg Take 5 mg by 0 EC tablet mouth 2 (two) times daily . Active multivitamin per tablet Take 1 tablet 0 by mouth daily. Active cholecalciferol (VITAMIN Take 2,000 0 D3) 1,000 unit Units by tabletIndications: mouth daily . vitamin D deficiency Active gabapentin (NEURONTIN) as needed 2 300 MG capsule 8 Active ondansetron (ZOFRAN) 4 MG Take 1 tablet 30 tablet 3 tabletIndications: Nausea (4 mg total) 9 by mouth 2 (two) times daily as needed for Nausea. Active rifAXIMin 550 mg Take 1 tablet 60 tablet 5 TabIndications: Other (550 mg 9 cirrhosis of liver (HCC), total) by Encephalopathy mouth 2 (two) times daily. 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 Active pantoprazole (PROTONIX) Take 1 tablet 30 tablet 5 40 MG tabletIndications: (40 mg total) 9 Dyspepsia by mouth daily. Active fluticasone propionate 1 spray by 0 (FLONASE) 50 Nasal route mcg/actuation nasal spray as needed for Rhinitis. Active lactulose (CHRONULAC) 10 Take 30 mLs 2700 mL 5 gram/15 mL (20 g total) 9 solutionIndications: by mouth 3 Hepatic encephalopathy (three) times (HCC) daily. Active furosemide (LASIX) 20 MG Take 1 tablet 60 tablet 5 tabletIndications: (20 mg total) 9 Alcoholic cirrhosis of by mouth 2 liver without ascites (two) times (HCC), Pedal edema daily. Active spironolactone Take 1 tablet 30 tablet 5 (ALDACTONE) 50 MG (50 mg total) 9 tabletIndications: by mouth Alcoholic cirrhosis of daily. liver without ascites (HCC), Pedal edema Active calcium carbonate Take 500 mg 0 (CALCIUM 500 ORAL) by mouth daily. Active dimenhyDRINATE Take 50 mg by 0 (DRAMAMINE) 50 MG tablet mouth every night as needed. 08/06/2018 sodium chloride 0.65% 1 spray by 15 mL 0 (OCEAN) 0.65 % nasal Nasal route 8 spray as needed for Congestion. 12/02/2018 Discontinued montelukast (SINGULAIR) Take 10 mg by 0 10 mg tablet mouth nightly. 08/17/2018 Discontinued rifAXIMin 550 mg Take 1 tablet 60 tablet 2 TabIndications: Other (550 mg 8 cirrhosis of liver (HCC), total) by Encephalopathy mouth 2 (two) times daily. 04/13/2018 Discontinued lactulose (CHRONULAC) 10 Take 30 mLs 2700 mL 5 gram/15 mL (20 g total) 8 solutionIndications: by mouth 3 Encephalopathy (three) times daily. 02/26/2018 Discontinued spironolactone Take 1 tablet 30 tablet 2 05/01/201 (ALDACTONE) 50 MG (50 mg total) 8 tabletIndications: by mouth Alcoholic cirrhosis of daily. liver without ascites (HCC), Pedal edema 02/27/2018 Discontinued furosemide (LASIX) 20 MG Take 1 tablet 30 tablet 6 tabletIndications: (20 mg total) 8 Alcoholic cirrhosis of by mouth liver without ascites daily. (HCC), Pedal edema 04/23/2018 Discontinued pantoprazole (PROTONIX) Take 1 tablet 30 tablet 3 40 MG tabletIndications: (40 mg total) 8 Dyspepsia by mouth daily. 06/30/2018 Discontinued ursodiol (ACTIGALL) 500 Take 1 tablet 60 tablet 6 MG tablet (500 mg 8 total) by mouth 2 (two) times daily. 07/16/2018 Discontinued ondansetron (ZOFRAN) 4 MG Take 1 tablet 30 tablet 3 tabletIndications: Nausea (4 mg total) 8 by mouth 2 (two) times daily as needed for Nausea. 02/27/2018 Discontinued spironolactone Take 1 tablet 30 tablet 5 (ALDACTONE) 50 MG (50 mg total) 8 tabletIndications: by mouth Alcoholic cirrhosis of daily. liver without ascites (HCC), Pedal edema 08/17/2018 Discontinued spironolactone Take 1 tablet 30 tablet 5 (ALDACTONE) 50 MG (50 mg total) 8 tabletIndications: by mouth Alcoholic cirrhosis of daily. liver without ascites (HCC), Pedal edema 08/17/2018 Discontinued furosemide (LASIX) 20 MG Take 1 tablet 60 tablet 5 tabletIndications: (20 mg total) 8 Alcoholic cirrhosis of by mouth 2 liver without ascites (two) times (HCC), Pedal edema daily. 12/23/2018 Discontinued lactulose (CHRONULAC) 10 Take 30 mLs 2700 mL 5 gram/15 mL (20 g total) 8 solutionIndications: by mouth 3 Hepatic encephalopathy (three) times (HCC) daily. 10/21/2018 Discontinued pantoprazole (PROTONIX) Take 1 tablet 30 tablet 5 40 MG tabletIndications: (40 mg total) 8 Dyspepsia by mouth daily. 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 02/12/2019 Discontinued furosemide (LASIX) 20 MG Take 1 tablet 60 tablet 5 tabletIndications: (20 mg total) 9 Alcoholic cirrhosis of by mouth 2 liver without ascites (two) times (HCC), Pedal edema daily. 02/17/2019 Discontinued spironolactone Take 1 tablet 30 tablet 5 (ALDACTONE) 50 MG (50 mg total) 9 tabletIndications: by mouth Alcoholic cirrhosis of daily. liver without ascites (HCC), Pedal edema 12/02/2018 Discontinued amoxicillin-clavulanate Take 1 tablet 0 (AUGMENTIN) 875-125 mg by mouth 2 per tablet (two) times daily. 11/17/2018 ondansetron (ZOFRAN) 4 MG Take 1 tablet 30 tablet 0 tabletIndications: Nausea (4 mg total) 9 by mouth 2 (two) times daily as needed for Nausea for up to 7 days. Active Problems Problem Noted Date End stage liver disease 12/24/2017 Cholelithiasis 10/03/2017 Epigastric pain 10/03/2017 Guaiac positive stools 10/03/2017 Choledocholithiasis 10/03/2017 Hemoptysis 08/04/2017 Angina at rest 07/15/2017 Pre-transplant evaluation for chronic liver disease 06/18/2017 Last Assessment & Plan: She is an acceptable candidate for liver transplant pending further imaging/appropriate testing and official review at [facility]. Foot drop 06/18/2017 Last Assessment & Plan: Continue follow up with orthopedics and neurology for control. Portal hypertension 05/28/2017 Last Assessment & Plan: Portal hypertension with evidence by varices, hypersplenism, and thrombocytopenia. 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 Her last drink was in February. She states that she previously consumed approximately 3-4 drinks per day. Hemorrhoids S/P TIPS (transjugular intrahepatic portosystemic shunt) Anemia Immune to hepatitis A Encounters Care Team Description Date Type Specialty Huseyin Flores MD Other cirrhosis of liver (HCC) (Primary Dx); Alcoholic cirrhosis, unspecified whether ascites present (HCC); Awaiting liver transplant; Nausea 02/23/2019 Follow-Up Transplant Hepatology Maryann Miranda RN Alcoholic cirrhosis, unspecified whether ascites present (HCC) (Primary Dx) 02/23/2019 Orders Only Transplant Hepatology Anuradha Sandy Appointment (Confirmed 02/23 clinic appt w/pt.) 02/22/2019 Telephone Transplant Hepatology Maryann Miranda RN Follow-up 02/17/2019 Telephone Transplant Hepatology Maryann Miranda RN Alcoholic cirrhosis of liver without ascites (HCC); Pedal edema 02/17/2019 Orders Only Transplant Hepatology Elton Pearson MD Nausea 02/16/2019 Refill Transplant Hepatology Huseyin Flores MD Dyspepsia 02/16/2019 Refill Transplant Hepatology Huseyin Flores MD Alcoholic cirrhosis of liver without ascites (HCC); Pedal edema 02/16/2019 Refill Transplant Hepatology Maryann Miranda RN Follow-up 02/12/2019 Telephone Transplant Hepatology Elton Pearson MD Nausea 02/09/2019 Refill Transplant Hepatology Huseyin Flores MD Alcoholic cirrhosis of liver without ascites (HCC); Pedal edema; Dyspepsia 02/09/2019 Refill Transplant Hepatology Malachi Concepcion MD Resource, Omt Preadmit Phone 01/25/2019 Hospital Pre-Admission Testing Encounter Huseyin Flores MD Cryptogenic cirrhosis (HCC); Screening for malignant neoplasm 01/25/2019 Hospital Radiology Encounter Nakul Fenton MD Hepatic encephalopathy (HCC) 12/23/2018 Refill Transplant HepatElton Syed MD Nausea 12/23/2018 Refill Transplant Hepatology Huseyin Flores MD Dyspepsia 12/23/2018 Refill Transplant Hepatology Bailey Ling Awaiting organ transplant status; Alcoholic cirrhosis, unspecified whether ascites present (HCC) 12/16/2018 Orders Only Transplant Hepatology Saige Hunt CRNA 12/02/2018 Anesthesia Gastroenterology Event Malachi Concepcion MD UPPER ENDOSCOPY,ULTRASOUND 12/02/2018 Surgery Gastroenterology Malachi Concepcion MD 12/02/2018 Hospital Gastroenterology Encounter Anuradha Sandy Appointment (Scheduled 01/25 mri & Feghali appt (2:00) & 02/23 clinic appt w/ pt. Itinerary mailed.) 11/19/2018 Telephone Transplant Hepatology Huseyin Flores MD Nausea (Primary Dx) 11/10/2018 Follow-Up Transplant Hepatology Bailey Ling Appointment (Scheduled 11/10 clinic appt w/pt.) 11/05/2018 Telephone Transplant Hepatology Erickson Estrada MD Anemia, unspecified type (Primary Dx); Cirrhosis of liver without ascites, unspecified hepatic cirrhosis type (HCC); Pain of left hip joint 11/04/2018 Emergency Emergency Medicine 11/04/2018 Travel Maryann Miranda RN 11/03/2018 Documentation Transplant Hepatology Elton Pearson MD Nausea 11/03/2018 Refill Transplant Hepatology Huseyin Flores MD Alcoholic cirrhosis of liver without ascites (HCC); Pedal edema; Dyspepsia 11/03/2018 Refill Transplant Hepatology Maryann Miranda RN Dyspepsia 10/21/2018 Orders Only Transplant Hepatology Maryann Miranda RN 10/21/2018 Telephone Transplant Hepatology Maryann Miranda RN Follow-up 09/23/2018 Telephone Transplant HepatElton Syed MD Nausea 09/14/2018 Refill Transplant Hepatology Maryann Miranda RN Follow-up 09/04/2018 Telephone Transplant Hepatology Bailey Ling Awaiting organ transplant status; Alcoholic cirrhosis, unspecified whether ascites present (HCC) 08/26/2018 Orders Only Transplant Hepatology Maryann Miranda RN Cryptogenic cirrhosis (HCC) 08/25/2018 Orders Only Transplant Hepatology Maryann Miranda RN Screening for malignant neoplasm (Primary Dx); Cryptogenic cirrhosis (HCC) 08/20/2018 Orders Only Transplant Hepatology Maryann Miranda RN 08/17/2018 Documentation Transplant Hepatology Maryann Miranda RN Alcoholic cirrhosis of liver without ascites (HCC); Pedal edema; Other cirrhosis of liver (HCC); Encephalopathy 08/17/2018 Orders Only Transplant Hepatology Elton Pearson MD Alcoholic cirrhosis of liver without ascites (HCC); Pedal edema; Nausea 08/17/2018 Refill Transplant Hepatology Huseyin Flores MD Other cirrhosis of liver (HCC); Encephalopathy 08/17/2018 Refill Transplant Hepatology Elton Pearson MD Alcoholic cirrhosis of liver without ascites (HCC); Pedal edema 08/07/2018 Refill Transplant Hepatology Elton Pearson MD Alcoholic cirrhosis of liver without ascites (HCC); Pedal edema; Nausea 08/04/2018 Refill Transplant Hepatology Elton Pearson MD Alcoholic cirrhosis of liver without ascites (HCC); Pedal edema; Nausea 08/04/2018 Refill Transplant Hepatology Nakul Fenton MD Hepatic encephalopathy (HCC) 08/04/2018 Refill Transplant Hepatology Nakul Fenton MD Screening for malignant neoplasm; Awaiting organ transplant status 07/28/2018 Hospital Radiology Encounter 07/27/2018 Travel Maryann Miranda RN 07/22/2018 Telephone Transplant Hepatology Bailey Ling Appointment (Scheduled 07/28 mri appt w/pt. Itinerary mailed.) 07/17/2018 Telephone Transplant Hepatology Maryann Miranda RN Nausea 07/16/2018 Orders Only Transplant Hepatology Elton Pearson MD Nausea 07/13/2018 Refill Transplant Hepatology Huseyin Flores MD Anemia, unspecified type (Primary Dx); Angina at rest (HCC); Choledocholithiasis; Calculus of gallbladder without cholecystitis without obstruction; Alcoholic cirrhosis of liver without ascites (HCC); End stage liver disease (HCC) 07/02/2018 Office Visit Hepatology Wil Pike Awaiting organ transplant status; Alcoholic cirrhosis, unspecified whether ascites present (HCC) 07/01/2018 Orders Only Transplant Hepatology Maryann Miranda RN Cryptogenic cirrhosis (HCC) (Primary Dx) 06/30/2018 Orders Only Transplant Hepatology Maryann Miranda RN Follow-up 06/22/2018 Telephone Transplant Hepatology Maryann Miranda RN Follow-up 06/18/2018 Telephone Transplant Hepatology Maryann Miranda RN Awaiting organ transplant status; Alcoholic cirrhosis, unspecified whether ascites present (HCC) 06/17/2018 Orders Only Transplant Hepatology Maryann Miranda RN Follow-up 06/17/2018 Telephone Transplant Hepatology Maryann Miranda, RN Follow-up 06/16/2018 Telephone Transplant Hepatology Maryann Miranda, RN Follow-up 06/15/2018 Telephone Transplant Hepatology Maryann Miranda RN Awaiting organ transplant status; Alcoholic cirrhosis, unspecified whether ascites present (HCC) 06/15/2018 Orders Only Transplant Hepatology Maryann Miranda RN Awaiting organ transplant status (Primary Dx); Alcoholic cirrhosis, unspecified whether ascites present (HCC) 06/15/2018 Orders Only Transplant Hepatology Maryann Miranda, RN Follow-up 06/11/2018 Telephone Transplant Hepatology Maryann Miranda, RN Follow-up 06/01/2018 Telephone Transplant Hepatology Maryann Miranda, RN Follow-up 05/28/2018 Telephone Transplant Hepatology Maryann Miranda, RN 05/19/2018 Telephone Transplant Hepatology Maryann Miranda RN Follow-up 05/18/2018 Telephone Transplant Hepatology Maryann Miranda, RN Follow-up 05/15/2018 Telephone Transplant Hepatology Maryann Miranda RN Dyspepsia 04/23/2018 Orders Only Transplant Hepatology Maryann Miranda RN Screening for malignant neoplasm (Primary Dx); Awaiting organ transplant status 04/17/2018 Orders Only Transplant Hepatology Renee Evans RN Nausea 04/13/2018 Telephone Transplant Hepatology Renee Evans RN Hepatic encephalopathy (HCC) (Primary Dx); Encephalopathy 04/13/2018 Orders Only Transplant Hepatology Brina Chicas MD Immunity status testing (Primary Dx); Cirrhosis of liver without ascites, unspecified hepatic cirrhosis type (HCC) 04/07/2018 Follow-Up Transplant Hepatology Harrison Banks MD Awaiting liver transplant; Alcoholic cirrhosis of liver without ascites (HCC); Pedal edema 04/06/2018 Orders Only Transplant Hepatology Bailey Ling Appointment (Confirmed 04/07 appt w/pt.) 04/06/2018 Telephone Transplant Hepatology Bailey Ling Appointment (Scheduled labs for meld update w/pt. Itinerary mailed.) 03/31/2018 Telephone Transplant Hepatology Renee Evans RN Prescription for nausea medication; Recent ER visit 03/23/2018 Telephone Transplant Hepatology Renee Evans RN Jaundiced; Increased nausea 03/20/2018 Telephone Transplant Hepatology Anuradha Sandy Appointment (Called to schedule labs for meld update. Pt said she would go either 03/23 or 03/24 she will call for us to release orders prior to [facility].) 03/20/2018 Telephone Transplant Hepatology Renee Evans RN Diuretics 02/27/2018 Telephone Transplant Hepatology Renee Evans RN Alcoholic cirrhosis of liver without ascites (HCC); Pedal edema 02/27/2018 Orders Only Transplant Hepatology Leti Aleman RN Alcoholic cirrhosis of liver without ascites (HCC); Pedal edema 02/26/2018 Orders Only Hepatology Elton Pearson MD Alcoholic cirrhosis of liver without ascites (HCC); Pedal edema 02/26/2018 Refill Transplant Hepatology Renee Evans RN Hematuria, gross (Primary Dx) 02/26/2018 Orders Only Transplant Hepatology Renee Evans RN Hematuria, gross (Primary Dx) 02/26/2018 Orders Only Transplant Hepatology Renee Evans RN Awaiting organ transplant status; Hematuria, gross 02/26/2018 Orders Only Transplant Hepatology after 02/25/2018 Immunizations Name Dates Previously Given Next Due Hepatitis B 08/04/2017 Hepatitis B Dialysis Or 01/06/2018 Immunosupressed 3-Dose IM Family History Medical History Relation Name Comments Heart disease Brother Hyperlipidemia Brother Hypertension Brother Kidney disease Brother Liver disease Brother Cancer Father Early Father Heart disease Father Hypertension Father Heart disease Mother Alcohol abuse Sister Cancer Sister Relation Name Status Comments Brother Father Mother Sister Social History Date Tobacco Use Types Packs/Day Years Used Quit: 02/2017 Former Smoker 0.5 30 Smokeless Tobacco: Never Used Tobacco Cessation: Counseling Given: No Alcohol Use Drinks/Week oz/Week Comments No Sex Assigned at Date Recorded Not on file Industry Job Start Date Occupation Not on file Not on file Not on file Travel End Travel History Travel Start No recent travel history available. Last Filed Vital Signs Time Taken Vital Sign Reading 02/23/2019 11:02 AM CDT Blood Pressure 115/76 02/23/2019 11:02 AM CDT Pulse 64 02/23/2019 11:02 AM CDT Temperature 36.6 C (97.8 F) 02/23/2019 11:02 AM CDT Respiratory Rate 18 02/23/2019 11:02 AM CDT Oxygen Saturation 99% - Inhaled Oxygen - Concentration 02/23/2019 11:02 AM CDT Weight 72.3 kg (159 lb 8 oz) 02/23/2019 11:02 AM CDT Height 165.1 cm (5' 5") 02/23/2019 11:02 AM CDT Body Mass Index 26.54 Plan of Treatment Care Team Description Date Type Specialty 04/20/2019 Follow-Up Transplant Hepatology Implants Device Identifier Shelf Expiration Date Model / Serial / Lot Implanted Type Area Manufactur er [id number] 06/12/2019 / / [id number] Mynxgrip Vascular Closure Device Cardiovasc N/A: Groin CARDINAL Implanted: Qty: 1 on 07/15/2017 by [facility] Celia Gee MD ELAYNE Procedures Comments Procedure Name Priority Date/Time Associated Diagnosis CBC W/PLT COUNT & AUTO Routine 02/23/2019 Alcoholic cirrhosis, DIFFERENTIAL 1:32 PM CDT unspecified whether ascites present (HCC) PROTHROMBIN TIME/INR Routine 02/23/2019 Other cirrhosis of liver 1:32 PM CDT (HCC) Awaiting liver transplant COMPREHENSIVE METABOLIC Routine 02/23/2019 Alcoholic cirrhosis, PANEL 1:32 PM CDT unspecified whether ascites present (HCC) CBC W/PLT COUNT & AUTO Routine 02/23/2019 Alcoholic cirrhosis, DIFFERENTIAL 1:32 PM CDT unspecified whether ascites present (HCC) BILIRUBIN, DIRECT Routine 02/23/2019 Alcoholic cirrhosis, 1:32 PM CDT unspecified whether ascites present (HCC) MR ABDOMEN WITH/WITHOUT Routine 01/25/2019 Cryptogenic cirrhosis IV CONTRAST 11:06 AM CDT (HCC) Screening for malignant neoplasm POCT-CREATININE Routine 01/25/2019 10:26 AM CDT BILIRUBIN, DIRECT Routine 12/17/2018 Awaiting organ transplant 11:17 AM CDT status Alcoholic cirrhosis, unspecified whether ascites present (HCC) CBC W/PLT COUNT & AUTO Routine 12/17/2018 Awaiting organ transplant DIFFERENTIAL 11:17 AM CDT status Alcoholic cirrhosis, unspecified whether ascites present (HCC) COMPREHENSIVE METABOLIC Routine 12/17/2018 Awaiting organ transplant PANEL 11:17 AM CDT status Alcoholic cirrhosis, unspecified whether ascites present (HCC) PROTHROMBIN TIME/INR Routine 12/17/2018 Awaiting organ transplant 11:17 AM CDT status Alcoholic cirrhosis, unspecified whether ascites present (HCC) REPORT OF PROCEDURE - 12/02/2018 ENDOSCOPY URL 10:53 AM CDT UPPER 12/02/2018 Pancreatic cyst ENDOSCOPY,ULTRASOUND 9:30 AM CDT Special Needs (LINEAR SCOPE) CBC W/PLT COUNT & AUTO STAT 11/04/2018 DIFFERENTIAL 1:29 PM CDT B-TYPE NATRIURETIC FACTOR STAT 11/04/2018 (BNP) 1:29 PM CDT TROPONIN I STAT 11/04/2018 1:29 PM CDT BASIC METABOLIC PANEL (7) STAT 11/04/2018 1:29 PM CDT PT/APTT STAT 11/04/2018 1:29 PM CDT HEPATIC FUNCTION PANEL STAT 11/04/2018 1:29 PM CDT CBC W/PLT COUNT & AUTO STAT 11/04/2018 DIFFERENTIAL 1:29 PM CDT XR HIP LEFT 2 VIEW STAT 11/04/2018 11:59 AM CDT XR CHEST 2 VIEWS STAT 11/04/2018 11:55 AM CDT ECG 12-LEAD Routine 11/04/2018 11:41 AM CDT Procedure Note - Interface, External Ris In - 11/04/2018 7:08 PM CDT Ventricula r Rate 71 BPM Atrial Rate 71 BPM P-R Interval 118 ms QRS Duration 82 ms Q-T Interval 438 ms QTC Calculatio n(Bazett) 475 ms P [place] 49 degrees R [place] 25 degrees T [place] 44 degrees Sinus rhythm with Premature supraventr icular complexes Otherwise normal ECG When compared with ECG of 8 12:46, Premature supraventr icular complexes are now Present ECG 12-LEAD STAT 11/04/2018 11:41 AM CDT ED ECG INTERPRETATION Routine 11/04/2018 11:30 AM CDT PROTHROMBIN TIME/INR Routine 09/01/2018 Awaiting organ transplant 11:54 AM SYRUP MIXER ASSISTANT status Alcoholic cirrhosis, unspecified whether ascites present (HCC) COMPREHENSIVE METABOLIC Routine 09/01/2018 Awaiting organ transplant PANEL 11:54 AM SYRUP MIXER ASSISTANT status Alcoholic cirrhosis, unspecified whether ascites present (HCC) CBC W/PLT COUNT & AUTO Routine 09/01/2018 Awaiting organ transplant DIFFERENTIAL 11:54 AM SYRUP MIXER ASSISTANT status Alcoholic cirrhosis, unspecified whether ascites present (HCC) BILIRUBIN, DIRECT Routine 09/01/2018 Awaiting organ transplant 11:54 AM SYRUP MIXER ASSISTANT status Alcoholic cirrhosis, unspecified whether ascites present (HCC) TRANSFUSE PLASMA Routine 08/20/2018 5:29 PM SYRUP MIXER ASSISTANT MR ABDOMEN WITH/WITHOUT Routine 07/28/2018 Screening for malignant IV CONTRAST 9:32 AM SYRUP MIXER ASSISTANT neoplasm Awaiting organ transplant status POCT-CREATININE Routine 07/28/2018 8:59 AM SYRUP MIXER ASSISTANT CBC W/PLT COUNT & AUTO Routine 07/01/2018 Awaiting organ transplant DIFFERENTIAL 2:09 PM SYRUP MIXER ASSISTANT status Alcoholic cirrhosis, unspecified whether ascites present (HCC) PROTHROMBIN TIME/INR Routine 07/01/2018 Awaiting organ transplant 2:09 PM SYRUP MIXER ASSISTANT status Alcoholic cirrhosis, unspecified whether ascites present (HCC) BILIRUBIN, DIRECT Routine 07/01/2018 Awaiting organ transplant 2:09 PM SYRUP MIXER ASSISTANT status Alcoholic cirrhosis, unspecified whether ascites present (HCC) CBC W/PLT COUNT & AUTO Routine 07/01/2018 Awaiting organ transplant DIFFERENTIAL 2:09 PM SYRUP MIXER ASSISTANT status Alcoholic cirrhosis, unspecified whether ascites present (HCC) COMPREHENSIVE METABOLIC Routine 07/01/2018 Awaiting organ transplant PANEL 2:09 PM SYRUP MIXER ASSISTANT status Alcoholic cirrhosis, unspecified whether ascites present (HCC) MICROSCOPIC EXAMINATION Routine 06/17/2018 1:04 PM SYRUP MIXER ASSISTANT URINALYSIS W/ MICROSCOPIC Routine 06/17/2018 Awaiting organ transplant 1:04 PM SYRUP MIXER ASSISTANT status Alcoholic cirrhosis, unspecified whether ascites present (HCC) PROTHROMBIN TIME/INR Routine 06/15/2018 Awaiting organ transplant 2:40 PM SYRUP MIXER ASSISTANT status Alcoholic cirrhosis, unspecified whether ascites present (HCC) CBC W/PLT COUNT & AUTO Routine 04/06/2018 Awaiting liver transplant DIFFERENTIAL 10:39 AM CDT Alcoholic cirrhosis of liver without ascites (HCC) Pedal edema PROTHROMBIN TIME/INR Routine 04/06/2018 Awaiting liver transplant 10:39 AM CDT Alcoholic cirrhosis of liver without ascites (HCC) Pedal edema COMPREHENSIVE METABOLIC Routine 04/06/2018 Awaiting liver transplant PANEL 10:39 AM CDT Alcoholic cirrhosis of liver without ascites (HCC) Pedal edema CBC W/PLT COUNT & AUTO Routine 04/06/2018 Awaiting liver transplant DIFFERENTIAL 10:39 AM CDT Alcoholic cirrhosis of liver without ascites (HCC) Pedal edema BILIRUBIN, DIRECT Routine 04/06/2018 Awaiting liver transplant 10:39 AM CDT Alcoholic cirrhosis of liver without ascites (HCC) Pedal edema URINE CULTURE Routine 02/26/2018 Hematuria, gross 9:44 AM CDT PROTHROMBIN TIME/INR Routine 02/26/2018 Awaiting organ transplant 9:38 AM CDT status COMPREHENSIVE METABOLIC Routine 02/26/2018 Awaiting organ transplant PANEL 9:38 AM CDT status CBC W/PLT COUNT & AUTO Routine 02/26/2018 Awaiting organ transplant DIFFERENTIAL 9:38 AM CDT status BILIRUBIN, DIRECT Routine 02/26/2018 Awaiting organ transplant 9:38 AM CDT status after 02/25/2018 Results * CBC with platelet count + automated diff (02/23/2019 1:32 PM CDT) Only the most recent of 4 results within the time period is included. WBC 6.1 3.5 - 10.5 K/L [facility] RBC 4.11 3.93 - 5.22 M/L [facility] Hemoglobin 11.3 11.2 - 15.7 GM/DL [facility] Hematocrit 35.5 34.1 - 44.9 % [facility] MCV 86.4 79.4 - 94.8 fL [facility] MCH 27.5 25.6 - 32.2 pg [facility] MCHC 31.8 (L) 32.2 - 35.5 GM/DL [facility] RDW 17.4 (H) 11.7 - 14.4 % [facility] Platelets 77 (L) 150 - 450 K/CU MM [facility] MPV 11.9 9.4 - 12.3 fL [facility] nRBC 0 0 - 0 /100 WBC [facility] % Neutros 50 % [facility] % Lymphs 39 % [facility] % Monos 8 % [facility] % Eos 2 % [facility] % Baso 1 % [facility] # Neutros 3.06 1.56 - 6.13 K/L [facility] # Lymphs 2.38 1.18 - 3.74 K/L [facility] # Monos 0.48 (H) 0.24 - 0.36 K/L [facility] # Eos 0.11 0.04 - 0.36 K/L [facility] # Baso 0.05 0.01 - 0.08 K/L [facility] Immature 0 0 - 1 % [facility] Granulocytes-Relative [facility] Specimen Blood Performing Organization Address City/[facility]/Zipcode Phone Number [address] [address] [facility] * Prothrombin time/INR (02/23/2019 1:32 PM CDT) Only the most recent of 7 results within the time period is included. Protime 16.9 (H) 11.9 - 14.2 seconds [facility] INR 1.5 <=5.9 [facility] Specimen Blood Narrative Performed At Effective 12/09/2018: PT Reference Range Change [facility] New: 11.9-14.2Previous: 11.7-14.7 [facility] RECOMMENDED COUMADIN/WARFARIN INR THERAPY RANGES STANDARD DOSE: 2.0-3.0Includes: PROPHYLAXIS for venous thrombosis, systemic embolization; TREATMENT for venous thrombosis and/or pulmonary embolus. HIGH RISK: Target INR is 2.5-3.5 for patients wiht mechanical heart valves. Performing Organization Address City/[facility] Phone Number [address] [address] [facility] * Bilirubin, direct (02/23/2019 1:32 PM CDT) Only the most recent of 6 results within the time period is included. Bilirubin, Direct 1.1 (H) 0.1 - 0.5 mg/dL [facility] Specimen Blood Performing Organization Address City/State/Zipcode Phone Number [phone] [place] [address] [facility] * Comprehensive metabolic panel (02/23/2019 1:32 PM CDT) Only the most recent of 6 results within the time period is included. Protein, Total 6.7 6.0 - 8.3 gm/dL [facility] Albumin 3.4 (L) 3.5 - 5.0 g/dL [facility] Alkaline Phosphatase 191 (H) 40 - 150 U/L [facility] Total Bilirubin 2.2 (H) 0.2 - 1.2 mg/dL [facility] Sodium 140 136 - 145 meq/L [facility] Potassium 4.0 3.5 - 5.1 meq/L [facility] Chloride 108 (H) 98 - 107 meq/L [facility] CO2 26 22 - 29 meq/L [facility] BUN 10 7 - 21 mg/dL [facility] Creatinine 0.63 0.57 - 1.25 mg/dL [facility] Glucose 84 70 - 105 mg/dL [facility] Calcium 9.1 8.4 - 10.2 mg/dL [facility] AST 35 (H) 5 - 34 U/L [facility] ALT 21 6 - 55 U/L [facility] EGFR 96Comment: ESTIMATED GFR IS mL/min/1.[address] [facility] NOT ACCURATE CREATININE [facility] CLEARANCE IN PREDICTING GLOMERULAR FILTRATION RATE. ESTIMATED GFR IS NOT APPLICABLE FOR DIALYSIS PATIENTS. Specimen Blood Narrative Performed At Specimen slightly icteric [facility] Performing Organization Address City/State/Zipcode Phone Number [facility] [address] [place] [address] MEDICAL CENTER * MRI abdomen with and without contrast (01/25/2019 11:06 AM CDT) Only the most recent of 2 results within the time period is included. Specimen Narrative Performed At FINAL REPORT [facility] MR of the abdomen dated January 25, 2019 COMPARISON: July 27, 2018 Full comment: Multiplanar T1 and T2-weighted images of the abdomen, postcontrast axial and coronal T1-weighted images of the abdomen were obtained. Liver is cirrhotic in appearance with irregular margins. A 9 mm early and persistent enhancing lesion is seen in the segment 7 of the liver suggestive of flash hemangioma. No suspicious mass is seen in the liver. Spleen is enlarged measuring approximately 12.1 x 4.2 x 10.1 cm. The splenic, spleen mesenteric, portal, and hepatic veins are patent.. Main portal vein measures approximately 16 mm in diameter. A TIPS stent is present. Gallbladder is contracted. No gallstone or biliary dilatation is seen. Pancreas and adrenals are unremarkable. Both kidneys are normal in size and functioning. No mass, adenopathy, ascites is present. The visualized small and large bowel are unremarkable. IMPRESSION: 1. Cirrhosis with splenomegaly 2. Stable early and persistent enhancing lesion in the segment 7 of the liver suggestive of flash hemangioma. Signed: Miky Oquendo MD Report Verified Date/Time:01/25/2019 14:51:52 Reading Location: [address] Radiology Reading Room Procedure Note Interface, External Ris In - 01/25/2019 2:54 PM CDT FINAL REPORT MR of the abdomen dated January 25, 2019 COMPARISON: July 27, 2018 Full comment: Multiplanar T1 and T2-weighted images of the abdomen, postcontrast axial and coronal T1-weighted images of the abdomen were obtained. Liver is cirrhotic in appearance with irregular margins. A 9 mm early and persistent enhancing lesion is seen in the segment 7 of the liver suggestive of flash hemangioma. No suspicious mass is seen in the liver. Spleen is enlarged measuring approximately 12.1 x 4.2 x 10.1 cm. The splenic, spleen mesenteric, portal, and hepatic veins are patent.. Main portal vein measures approximately 16 mm in diameter. A TIPS stent is present. Gallbladder is contracted. No gallstone or biliary dilatation is seen. Pancreas and adrenals are unremarkable. Both kidneys are normal in size and functioning. No mass, adenopathy, ascites is present. The visualized small and large bowel are unremarkable. IMPRESSION: 1. Cirrhosis with splenomegaly 2. Stable early and persistent enhancing lesion in the segment 7 of the liver suggestive of flash hemangioma. Signed: Miky Oquendo MD Report Verified Date/Time: 01/25/2019 14:51:52 Reading Location: [address] Radiology Reading Room Performing Organization Address City/State/Zipcode Phone Number [facility] * POC-Creatinine (01/25/2019 10:26 AM CDT) Only the most recent of 2 results within the time period is included. POC-Creatinine 0.5 (L)Comment: TESTED AT 0.6 - 1.3 mg/dL [address] [address] POC-EGFR 126 mL/min/1.73M2 [facility] Specimen Blood Performing Organization Address City/[facility] Phone Number [address] [address] [facility] * CBC with platelet count + automated diff (12/17/2018 11:17 AM CDT) Only the most recent of 3 results within the time period is included. WBC 5.8 3.4 - 10.8 x10E3/uL [facility] RBC 3.90 3.77 - 5.28 x10E6/uL [facility] 1 Hemoglobin 11.0 (L) 11.1 - 15.9 g/dL [facility] 1 Hematocrit 33.4 (L) 34.0 - 46.6 % [facility] 1 MCV 86 79 - 97 fL [facility] 1 MCH 28.2 26.6 - 33.0 pg [facility] 1 MCHC 32.9 31.5 - 35.7 g/dL [facility] 1 RDW 17.1 (H) 12.3 - 15.4 % [facility] 1 Platelets 91 (LL) 150 - 450 x10E3/uL [facility] Comment: Platelet count verified by examination of peripheral blood smear. Decreased. % Neutros 50 Not Estab. % [facility] % Lymphs 40 Not Estab. % [facility] % Monos 7 Not Estab. % [facility] % Eos 2 Not Estab. % [facility] % Baso 1 Not Estab. % [facility] # Neutros 2.9 1.4 - 7.0 x10E3/uL [facility] # Lymphs 2.3 0.7 - 3.1 x10E3/uL [facility] # Monos 0.4 0.1 - 0.9 x10E3/uL [facility] # Eos 0.1 0.0 - 0.4 x10E3/uL [facility] 1 Baso (Absolute) 0.0 0.0 - 0.2 x10E3/uL [facility] % Immature Grans 0 Not Estab. % [facility] # Immature Grans 0.0 0.0 - 0.1 x10E3/uL [facility] 1 Hematology Comments: Note:Comment: Verified by [facility] 1 microscopic examination. Specimen Blood Narrative Performed At Performed at:[address] [place] [address] [facility] [address] [place], [id number] Physician President: Dae Kauffman MD, Phone:[phone] Performing Organization Address City/[facility] Phone Number [facility] * REPORT OF PROCEDURE - ENDOSCOPY URL (12/02/2018 10:53 AM CDT) Narrative Performed At * PT/aPTT (11/04/2018 1:29 PM CDT) Protime 17.8 (H) 11.7 - 14.7 seconds [facility] INR 1.4 <=5.9 [facility] PTT 45.6 (H) 22.5 - 36.0 seconds [facility] Specimen Blood Narrative Performed At RECOMMENDED COUMADIN/WARFARIN INR THERAPY RANGES [facility] STANDARD DOSE: 2.0 - 3.0 Includes: PROPHYLAXIS for venous thrombosis, [facility] systemic embolization; TREATMENT for venous thrombosis and/or pulmonary embolus. HIGH RISK: Target INR is 2.5-3.5 for patients with mechanical heart valves. Performing Organization Address City/[facility]/Zipcode Phone Number [facility] [address] [place] [address] [facility] * Troponin I (11/04/2018 1:29 PM CDT) Troponin I <0.01 0.00 - 0.03 ng/mL [facility] Specimen Blood Narrative Performed At Troponin I (TnI) levels must be interpreted in the context of the presenting [facility] symptoms and the clinical findings. Elevated TnI levels indicate myocardial [facility] damage, but are not specific for ischemic heart disease. Elevated TnI levels are seen in patients with other cardiac conditions (including myocarditis and congestive heart failure), and slight TnI elevations occur in patients with other conditions, including sepsis, renal failure, acidosis, acute neurological disease, and persistent tachyarrhythmia. Performing Organization Address [facility] Phone Number [address] * B-type Natriuretic Factor (BNP) (11/04/2018 1:29 PM CDT) BNP 149 (H) 0 - 100 pg/mL [facility] Specimen Blood Performing Organization Address [facility] Phone Number [address] * Hepatic function panel (11/04/2018 1:29 PM CDT) Protein, Total 6.1 6.0 - 8.3 gm/dL [facility] Albumin 3.0 (L) 3.5 - 5.0 g/dL [facility] Total Bilirubin 2.3 (H) 0.2 - 1.2 mg/dL [facility] Bilirubin, Direct 1.4 (H) 0.1 - 0.5 mg/dL [facility] Alkaline Phosphatase 244 (H) 40 - 150 U/L [facility] AST 32 5 - 34 U/L [facility] ALT 21 6 - 55 U/L [facility] Specimen Blood Narrative Performed At Specimen slightly icteric [facility] Performing Organization Address [facility] Phone Number [place] [address] [place] [address] [facility] * Basic Metabolic Panel (11/04/2018 1:29 PM CDT) Sodium 140 136 - 145 meq/L [facility] Potassium 4.1 3.5 - 5.1 meq/L [facility] Chloride 111 (H) 98 - 107 meq/L [facility] CO2 23 22 - 29 meq/L [facility] BUN 13 7 - 21 mg/dL [facility] Creatinine 0.65 0.57 - 1.25 mg/dL [facility] Glucose 78 70 - 105 mg/dL [facility] Calcium 8.3 (L) 8.4 - 10.2 mg/dL [facility] EGFR 93Comment: ESTIMATED GFR IS mL/min/1.[address] [facility] NOT ACCURATE CREATININE [facility] CLEARANCE IN PREDICTING GLOMERULAR FILTRATION RATE. ESTIMATED GFR IS NOT APPLICABLE FOR DIALYSIS PATIENTS. Specimen Blood Narrative Performed At Specimen slightly icteric [facility] Performing Organization Address City/State/Zipcode Phone Number [place] [phone] [place] [address] [phone] [place] [address] * XR hip 2 views left (11/04/2018 11:59 AM CDT) Specimen Narrative Performed At FINAL REPORT RIS EXAM: AP and lateral view of the left hip HISTORY PROVIDED: Abnormal lab COMPARISON: None available IMPRESSION: The patient is status post total left hip arthroplasty without evidence of richelle-hardware fracture or complication. The hardware appears aligned on these 2 views. No evidence of dislocation. The bones appear demineralized. The soft tissues are unremarkable. Signed: Kellie Pitt MD Report Verified Date/Time:11/04/2018 12:55:08 Reading Location: [facility] Reading Room Procedure Note Interface, External Ris In - 11/04/2018 12:57 PM CDT FINAL REPORT EXAM: AP and lateral view of the left hip HISTORY PROVIDED: Abnormal lab COMPARISON: None available IMPRESSION: The patient is status post total left hip arthroplasty without evidence of richelle-hardware fracture or complication. The hardware appears aligned on these 2 views. No evidence of dislocation. The bones appear demineralized. The soft tissues are unremarkable. Signed: Kellie Pitt MD Report Verified Date/Time: 11/04/2018 12:55:08 Reading Location: [facility] Mammo Reading Room Performing Organization Address [facility] Phone Number [facility] * XR chest 2 views (11/04/2018 11:55 AM CDT) Specimen Narrative Performed At FINAL REPORT [facility] Chest, PA and lateral. History: Shortness of breath. Comparison: 12/24/2017. Discussion:The cardiomediastinal silhouette and pulmonary vasculature are within normal limits. The lungs are clear without evidence of consolidation or effusion.There are no acute osseous abnormalities. The soft tissues are unremarkable. IMPRESSION: No acute cardiopulmonary abnormality. Signed: Ac Antonio MD Report Verified Date/Time:11/04/2018 12:01:53 Reading Location: [address] Radiology Reading Room Procedure Note Interface, External Ris In - 11/04/2018 12:05 PM CDT FINAL REPORT Chest, PA and lateral. History: Shortness of breath. Comparison: 12/24/2017. Discussion: The cardiomediastinal silhouette and pulmonary vasculature are within normal limits. The lungs are clear without evidence of consolidation or effusion. There are no acute osseous abnormalities. The soft tissues are unremarkable. IMPRESSION: No acute cardiopulmonary abnormality. Signed: Ac Antonio MD Report Verified Date/Time: 11/04/2018 12:01:53 Reading Location: [address] Radiology Reading Room Performing Organization Address [facility] Phone Number [facility] * ECG 12 lead (11/04/2018 11:41 AM CDT) Specimen Narrative Performed At Ventricular Rate 71 BPM [facility] Atrial Rate 71 BPM P-R Interval 118 ms QRS Duration 82 ms Q-T Interval 438 ms QTC Calculation(Bazett) 475 ms P [place] 49 degrees R [place] 25 degrees T [place] 44 degrees Sinus rhythm wnl Confirmed by MD Ricketts Roberto ([id number]) on 11/05/2018 10:38:09 AM Procedure Note Interface, External Ris In - 11/05/2018 10:38 AM CDT Ventricular Rate 71 BPM Atrial Rate 71 BPM P-R Interval 118 ms QRS Duration 82 ms Q-T Interval 438 ms QTC Calculation(Bazett) 475 ms P [place] 49 degrees R [place] 25 degrees T [place] 44 degrees Sinus rhythm wnl Confirmed by MD Ricketts Roberto ([id number]) on 11/05/2018 10:38:09 AM Performing Organization Address City/[facility] Phone Number [facility] * ECG/EKG Interpretation (11/04/2018 11:30 AM CDT) Narrative Performed At Erickson Estrada MD 11/04/2018 12:08 PM ECG/EKG Interpretation Date/Time: 11/04/2018 11:44 AM Performed by: Erickson Estrada MD Authorized by: Erickson Estrada MD The ECG was interpreted by ED physician. The ECG is interpreted as sinus rhythm. Rate is normal rate. Clinical Impression: non-specific ECG * Transfuse plasma (08/20/2018 5:29 PM [employer] M[employer] ASSISTANT) * MICROSCOPIC EXAMINATION (06/17/2018 1:04 PM [employer] ASSISTANT) WBC 0-5 0 - 5 /hpf [facility] 1 RBC 0-2 0 - 2 /hpf [facility] 1 Epithelial Cells (non 0-10 0 - 10 /hpf [facility] 1 renal) Bacteria None seen None seen/ [facility] 1 Specimen Narrative Performed At Performed at:01 - [facility] [address] [place], [id number] Physician President: Dae Kauffman MD, Phone:[phone] Performing Organization Address City/State/Zipcode Phone Number [facility] * Urinalysis, Routine (with microscopic) (06/17/2018 1:04 PM [employer] M[employer] ASSISTANT) Specific Mabel, UA 1.013 1.005 - 1.03 [facility] 1 pH, UA 6.0 5.0 - 7.5 [facility] 1 Color, UA Yellow Yellow [facility] 1 Appearance Clear Clear [facility] 1 WBC Esterase Negative Negative [facility] 1 Protein, UA Negative Negative/T [facility] 1 Glucose, Urine Negative Negative [facility] 1 Ketones, UA Negative Negative [facility] 1 Blood, UA Negative Negative [facility] 1 Bilirubin, UA Negative Negative [facility] 1 Urobilinogen,Semi-Qn 0.2 0.2 - 1.0 mg/dL [facility] 1 Nitrite, UA Negative Negative [facility] 1 Microscopic Examination CommentComment: Microscopic [facility] 1 follows if indicated. Microscopic Examination See below:Comment: Microscopic [facility] 1 was indicated and was performed. Specimen Urine Narrative Performed At Performed at:[address] [place] [address] [facility] [place], [id number] Physician President: Dae Kauffman MD, Phone:[phone] Performing Organization Address [facility] Phone Number [facility] 1 * Urine culture (02/26/2018 9:44 AM CDT) Urine Final report (A) [facility] 1 Culture,Comprehensive Result 1 Klebsiella pneumoniae [facility] 1 (A)Comment: 5,000 Colonies/mL Antimicrobial Comment [facility] 1 Susceptibility Comment: S=Susceptible; I=Intermediate; R=Resistant P=Positive; N=Negative MICS are expressed in micrograms per mL Antibiotic [id number] Amoxicillin/Clavulanic AcidR Ampicillin R Cefazolin R Cefepime S Cefuroxime R Ciprofloxacin S Gentamicin S Imipenem I Levofloxacin S Meropenem S Nitrofurantoin R Piperacillin/Tazobactam R Tetracycline S Tobramycin S Trimethoprim/Sulfa S Specimen Urine Narrative Performed At Performed at:[address] [place] [address] [facility] [address] [place], [place] [id number] Physician President: Dae Kauffman MD, Phone:[phone] Performing Organization Address [facility] Phone Number [facility] 1 after 02/25/2018 Insurance Payer Benefit Subscriber ID Type Phone Address Plan / Group xxxxxxxxxxx Other Govt (, [place], [facility], etc.) Advance Directives Patient has advance care planning documents, and code status on file. For more i nformation, please contact: [facility] [address] [place] [address] Date Inactivated Comments Code Status Date Activated 12/25/2017 9:05 AM Full Code 12/24/2017 12:24 PM This code status was determined by: Patient 10/09/2017 4:02 PM Full Code 10/03/2017 3:48 AM This code status was determined by: Patient 08/06/2017 12:26 PM Full Code 08/04/2017 2:22 PM This code status was determined by: Patient 07/15/2017 2:33 PM Full Code 07/15/2017 7:40 AM This code status was determined by: Patient
--- OUTSIDE RECORDS SUMMARY | 2019-02-26 06:12 | XMS REPORT ---
Author Author [facility] Address Unknown Phone Unavailable Care Team Providers Care Silo Man Name Role Phone KATTY MCCOY Unavailable Unavailable CARLOS QUINTANILLA Unavailable Unavailable Shanelle MERIDA Unavailable Unavailable AUGUSTO MENDOZA Unavailable Unavailable PAT CONCEPCION Unavailable Unavailable VEDA POLLARD Unavailable Unavailable Lázaro ROSA Unavailable Unavailable CRISTIANO CROSS Unavailable Unavailable CARLOS WILSON Unavailable Unavailable REBECCA KOLB Unavailable Unavailable Louie RIVERA Unavailable Unavailable Problems This patient has no known problems. Allergies, Adverse Reactions, Alerts This patient has no known allergies or adverse reactions. Medications This patient has no known medications. Results Test Description Test Time Test Comments Text Results Atomic Results Result Comments COMPREHENSIVE METABOLIC PANEL 2019-02-23 16:15:00 TOTAL PROTEIN (BEAKER) (test hmmm=718) 6.7 gm/dL 6.0-8.3 ALBUMIN (BEAKER) (test qshf=7724) 3.4 g/dL 3.5-5.0 ALKALINE PHOSPHATASE (BEAKER) (test yywb=922) 191 U/L 40-150 BILIRUBIN TOTAL (BEAKER) (test zxfo=002) 2.2 mg/dL 0.2-1.2 SODIUM (BEAKER) (test gfvn=271) 140 meq/L 136-145 POTASSIUM (BEAKER) (test jffk=178) 4.0 meq/L 3.5-5.1 CHLORIDE (BEAKER) (test syyw=473) 108 meq/L 98-107 CO2 (BEAKER) (test ogac=092) 26 meq/L 22-29 BLOOD UREA NITROGEN (BEAKER) (test dumf=960) 10 mg/dL 7-21 CREATININE (BEAKER) (test esyn=786) 0.63 mg/dL 0.57-1.25 GLUCOSE RANDOM (BEAKER) (test kggt=287) 84 mg/dL 70-105 CALCIUM (BEAKER) (test ltzh=143) 9.1 mg/dL 8.4-10.2 AST (SGOT) (BEAKER) (test pqvd=188) 35 U/L 5-34 ALT (SGPT) (BEAKER) (test bzjj=084) 21 U/L 6-55 EGFR (BEAKER) (test zzkc=3582) 96 mL/min/1.73 sq m ESTIMATED GFR IS NOT ACCURATE CREATININE CLEARANCE IN PREDICTING GLOMERULAR FILTRATION RATE. ESTIMATED GFR IS NOT APPLICABLE FOR DIALYSIS PATIENTS. Specimen slightly ictericBILIRUBIN, [id number] 16:15:00* Test Item Value Reference Range Comments BILIRUBIN DIRECT (BEAKER) (test xxvc=232) 1.1 mg/dL 0.1-0.5 PROTHROMBIN TIME/[id number] 15:58:00* Test Item Value Reference Range Comments PROTIME (BEAKER) (test zxtr=032) 16.9 seconds 11.9-14.2 INR (BEAKER) (test wfva=623) 1.5 <=5.9 Effective 12/09/2018: PT Reference Range ChangeNew: 11.9-14.2 Previous: 11.7-14. 7RECOMMENDED COUMADIN/WARFARIN INR THERAPY RANGESSTANDARD DOSE: 2.0-3.0 Include s: PROPHYLAXIS for venous thrombosis, systemic embolization; TREATMENT for venou s thrombosis and/or pulmonary embolus.HIGH RISK: Target INR is 2.5-3.5 for patie nts wiht mechanical heart valves.CBC W/PLT COUNT & AUTO [id number] 15:49:00* Test Item Value Reference Range Comments WHITE BLOOD CELL COUNT (BEAKER) (test elbe=693) 6.1 K/ L 3.5-10.5 RED BLOOD CELL COUNT (BEAKER) (test vopi=723) 4.11 M/ L 3.93-5.22 HEMOGLOBIN (BEAKER) (test xkix=588) 11.3 GM/DL 11.2-15.7 HEMATOCRIT (BEAKER) (test zbgh=955) 35.5 % 34.1-44.9 MEAN CORPUSCULAR VOLUME (BEAKER) (test jabk=458) 86.4 fL 79.4-94.8 MEAN CORPUSCULAR HEMOGLOBIN (BEAKER) (test lunp=517) 27.5 pg 25.6-32.2 MEAN CORPUSCULAR HEMOGLOBIN CONC (BEAKER) (test tqyx=926) 31.8 GM/DL 32.2-35.5 RED CELL DISTRIBUTION WIDTH (BEAKER) (test wduo=489) 17.4 % 11.7-14.4 PLATELET COUNT (BEAKER) (test xjec=872) 77 K/CU MM 150-450 MEAN PLATELET VOLUME (BEAKER) (test lsys=406) 11.9 fL 9.4-12.3 NUCLEATED RED BLOOD CELLS (BEAKER) (test glwq=550) 0 /100 WBC 0-0 NEUTROPHILS RELATIVE PERCENT (BEAKER) (test smxw=450) 50 % LYMPHOCYTES RELATIVE PERCENT (BEAKER) (test jsfs=144) 39 % MONOCYTES RELATIVE PERCENT (BEAKER) (test zqoe=997) 8 % EOSINOPHILS RELATIVE PERCENT (BEAKER) (test disz=230) 2 % BASOPHILS RELATIVE PERCENT (BEAKER) (test suhd=109) 1 % NEUTROPHILS ABSOLUTE COUNT (BEAKER) (test zchz=729) 3.06 K/ L 1.56-6.13 LYMPHOCYTES ABSOLUTE COUNT (BEAKER) (test nymg=496) 2.38 K/ L 1.18-3.74 MONOCYTES ABSOLUTE COUNT (BEAKER) (test xtrm=580) 0.48 K/ L 0.24-0.36 EOSINOPHILS ABSOLUTE COUNT (BEAKER) (test nynx=289) 0.11 K/ L 0.04-0.36 BASOPHILS ABSOLUTE COUNT (BEAKER) (test cogg=906) 0.05 K/ L 0.01-0.08 IMMATURE GRANULOCYTES-RELATIVE PERCENT (BEAKER) (test qmmc=3163) 0 % 0-1 MR, ABDOMEN, [id number] 14:51:00Referring: self referral per patientInclude Abdominal VesselsFINAL REPORT MR of the abdomen dated January 25, 2019 COMPARISON: July 27, 2018 Full comment: Multiplanar T1 and T2- weighted images of the abdomen, postcontrast axial and [...] visualized small and large bowel are unremarkable. IMPRESSION:1. Cirrhosis with splenomegaly2. Stable early and persistent enhancing lesion in the segment 7 of the liver suggestive of flash hemangioma. Signed: Miky Oquendo MDReport Verified Date/Time: 01/25/2019 14:51:52 Reading Location: [address] Radiology Reading Room -[id number] 10:32:00* Test Item Value Reference Range Comments POC-CREATININE (BEAKER) (test mirt=1176) 0.5 mg/dL 0.6-1.3 TESTED AT [facility] [address] [facility] [address] POC-EGFR (BEAKER) (test vyzm=3046) 126 mL/min/1.73M2 TROPONIN [id number] 14:11:00* Test Item Value Reference Range Comments TROPONIN I (BEAKER) (test gsrc=243) < ng/mL 0.00-0.03 Troponin I (TnI) levels must be interpreted in the context of the presenting sym ptoms and the clinical findings. Elevated TnI levels indicate myocardial damage, but are not specific for ischemic heart disease. Elevated TnI levels are seen in patients with other cardiac conditions (including myocarditis and congestive h eart failure), and slight TnI elevations occur in patients with other conditions , including sepsis, renal failure, acidosis, acute neurological disease, and per sistent tachyarrhythmia.B-TYPE NATRIURETIC FACTOR (BNP)2018-11-04 14:08:00* Test Item Value Reference Range Comments B-TYPE NATRIURETIC PEPTIDE (BEAKER) (test wyif=382) 149 pg/mL 0-100 BASIC METABOLIC [id number] 14:01:00* Test Item Value Reference Range Comments SODIUM (BEAKER) (test thwe=351) 140 meq/L 136-145 POTASSIUM (BEAKER) (test acjz=892) 4.1 meq/L 3.5-5.1 CHLORIDE (BEAKER) (test atke=195) 111 meq/L 98-107 CO2 (BEAKER) (test kasz=741) 23 meq/L 22-29 BLOOD UREA NITROGEN (BEAKER) (test xlev=079) 13 mg/dL 7-21 CREATININE (BEAKER) (test wtrb=140) 0.65 mg/dL 0.57-1.25 GLUCOSE RANDOM (BEAKER) (test qehu=125) 78 mg/dL 70-105 CALCIUM (BEAKER) (test hvkq=065) 8.3 mg/dL 8.4-10.2 EGFR (BEAKER) (test eihb=4522) 93 mL/min/1.73 sq m ESTIMATED GFR IS NOT ACCURATE CREATININE CLEARANCE IN PREDICTING GLOMERULAR FILTRATION RATE. ESTIMATED GFR IS NOT APPLICABLE FOR DIALYSIS PATIENTS. Specimen slightly ictericHEPATIC FUNCTION [id number] 14:01:00* Test Item Value Reference Range Comments TOTAL PROTEIN (BEAKER) (test boty=021) 6.1 gm/dL 6.0-8.3 ALBUMIN (BEAKER) (test qigt=1783) 3.0 g/dL 3.5-5.0 BILIRUBIN TOTAL (BEAKER) (test pcmo=967) 2.3 mg/dL 0.2-1.2 BILIRUBIN DIRECT (BEAKER) (test pmmw=064) 1.4 mg/dL 0.1-0.5 ALKALINE PHOSPHATASE (BEAKER) (test vpqm=402) 244 U/L 40-150 AST (SGOT) (BEAKER) (test inck=409) 32 U/L 5-34 ALT (SGPT) (BEAKER) (test cmhv=225) 21 U/L 6-55 Specimen slightly ictericPT/[id number] 13:52:00* Test Item Value Reference Range Comments PROTIME (BEAKER) (test pepc=798) 17.8 seconds 11.7-14.7 INR (BEAKER) (test bdxm=508) 1.4 <=5.9 PARTIAL THROMBOPLASTIN TIME (BEAKER) (test hkyi=565) 45.6 seconds 22.5-36.0 RECOMMENDED COUMADIN/WARFARIN INR THERAPY RANGESSTANDARD DOSE: 2.0 - 3.0 Inclu abi: PROPHYLAXIS for venous thrombosis, systemic embolization; TREATMENT for fam ous thrombosis and/or pulmonary embolus.HIGH RISK: Target INR is 2.5-3.5 for pat ients with mechanical heart valves.CBC W/PLT COUNT & AUTO [id number] 13:41:00* Test Item Value Reference Range Comments WHITE BLOOD CELL COUNT (BEAKER) (test dvha=102) 5.9 K/ L 3.5-10.5 RED BLOOD CELL COUNT (BEAKER) (test fali=880) 3.58 M/ L 3.93-5.22 HEMOGLOBIN (BEAKER) (test iolb=290) 9.9 GM/DL 11.2-15.7 HEMATOCRIT (BEAKER) (test tqra=076) 32.0 % 34.1-44.9 MEAN CORPUSCULAR VOLUME (BEAKER) (test xsfd=319) 89.4 fL 79.4-94.8 MEAN CORPUSCULAR HEMOGLOBIN (BEAKER) (test boeu=929) 27.7 pg 25.6-32.2 MEAN CORPUSCULAR HEMOGLOBIN CONC (BEAKER) (test ieab=498) 30.9 GM/DL 32.2-35.5 RED CELL DISTRIBUTION WIDTH (BEAKER) (test qela=131) 19.3 % 11.7-14.4 PLATELET COUNT (BEAKER) (test rhni=463) 70 K/CU MM 150-450 MEAN PLATELET VOLUME (BEAKER) (test iqqx=970) 10.6 fL 9.4-12.3 NUCLEATED RED BLOOD CELLS (BEAKER) (test qora=517) 0 /100 WBC 0-0 NEUTROPHILS RELATIVE PERCENT (BEAKER) (test wfjh=463) 54 % LYMPHOCYTES RELATIVE PERCENT (BEAKER) (test hahk=367) 34 % MONOCYTES RELATIVE PERCENT (BEAKER) (test oqlm=044) 10 % EOSINOPHILS RELATIVE PERCENT (BEAKER) (test tuux=691) 2 % BASOPHILS RELATIVE PERCENT (BEAKER) (test pnnt=087) 1 % NEUTROPHILS ABSOLUTE COUNT (BEAKER) (test rthl=574) 3.18 K/ L 1.56-6.13 LYMPHOCYTES ABSOLUTE COUNT (BEAKER) (test onmi=245) 1.97 K/ L 1.18-3.74 MONOCYTES ABSOLUTE COUNT (BEAKER) (test ycke=136) 0.58 K/ L 0.24-0.36 EOSINOPHILS ABSOLUTE COUNT (BEAKER) (test nlkv=031) 0.09 K/ L 0.04-0.36 BASOPHILS ABSOLUTE COUNT (BEAKER) (test zlqs=627) 0.03 K/ L 0.01-0.08 IMMATURE GRANULOCYTES-RELATIVE PERCENT (BEAKER) (test kcla=3918) 0 % 0-1 RAD, HIP, 2 VIEWS, [id number] 12:55:00Referring: self referral per patientReason for exam:->ABNORMAL LABFINAL REPORT EXAM: AP and lateral view of the left hip HISTORY PROVIDED: Abnormal lab COMPARISON: None available IMPRESSION:The patient is status post total left hip arthroplasty without evidence of richelle-hardware fracture or complication. The hardware appears aligned on these 2 views. No evidence of dislocation. The bones appear demineralized. The soft tissues are unremarkable. Signed: Kellie Pitt Verified Date/Time: 11/04/2018 12:55:08 Reading Location: [facility] Mammo Reading Room , CHEST, 2 [id number] 12:01:00Referring: self referral per patientReason for exam:->sobShould this be performed at the bedside?->NoFINAL REPORT Chest, PA and lateral. History: Shortness of breath. Comparison: 12/24/2017. Discussion: The cardiomediastinal silhouette and pulmonary vasculature are within normal limits. The lungs are clear without evidence of consolidation or effusion. There are no acute osseous abnormalities . The soft tissues are unremarkable. IMPRESSION: No acute cardiopulmonary abnor mality. Signed: Ac Antonio Verified Date/Time: 11/04/2018 12:01:5 3 Reading Location: [address] Radiology Reading Room , ABDOMEN, WITH 2018-07-28 18:35:00Referring: self referral per patientInclude Abdominal Vessels FINAL REPORT MRI of the abdomen dated July 28, 2018 [place] MPARISON: January 06, 2018 Comment: Multiplanar T1 and T2-weighted images of the ab domen, postcontrast axial and coronal T1-weighted images of the abdomen were obt ained. Liver is cirrhotic in appearance with irregular margins. A stable 7 mm ea rly and persistent enhancing lesion seen in the segment to 7 of the liver. No ot her lesion is seen in the liver. Spleen is is in upper limits of normal in size. The splenic, spleen mesenteric, portal, and hepatic veins are patent. Main port al vein measures approximately 1.4 cm in diameter. A TIPS stent is present. Gall bladder is distended. No gallstone or biliary dilatation is present. Pancreas an d adrenals are unremarkable. Both kidneys are normal in size and functioning. No mass, adenopathy, ascites is present. IMPRESSION:1. Cirrhosis without suspicious hepatic mass.2. Stable early and persistent enhancing lesion in the segment 7 of the liver. Signed: Miky Oquendo MDReport Verified Date/Time: 07/28/2018 18:35:00 Reading Location: [address] Body Reading Room -[id number] 09:05:00 * Test Item Value Reference Range Comments POC-CREATININE (BEAKER) (test mzak=7942) 0.6 mg/dL 0.6-1.3 TESTED AT [facility] [address] [facility] [address] POC-EGFR (BEAKER) (test vkxn=1654) 102 mL/min/1.73M2 COMPREHENSIVE METABOLIC [id number] 15:15:00* Test Item Value Reference Range Comments TOTAL PROTEIN (BEAKER) (test vhbe=552) 6.2 gm/dL 6.0-8.3 ALBUMIN (BEAKER) (test ixwf=7066) 3.0 g/dL 3.5-5.0 ALKALINE PHOSPHATASE (BEAKER) (test elax=484) 229 U/L 40-150 BILIRUBIN TOTAL (BEAKER) (test fesr=887) 3.3 mg/dL 0.2-1.2 SODIUM (BEAKER) (test mcfi=983) 139 meq/L 136-145 POTASSIUM (BEAKER) (test xmkw=995) 3.7 meq/L 3.5-5.1 CHLORIDE (BEAKER) (test wtey=796) 107 meq/L 98-107 CO2 (BEAKER) (test lxfu=199) 26 meq/L 22-29 BLOOD UREA NITROGEN (BEAKER) (test hcaa=096) 8 mg/dL 7-21 CREATININE (BEAKER) (test qllk=512) 0.69 mg/dL 0.57-1.25 GLUCOSE RANDOM (BEAKER) (test qfpu=325) 70 mg/dL 70-105 CALCIUM (BEAKER) (test lybe=009) 8.6 mg/dL 8.4-10.2 AST (SGOT) (BEAKER) (test ewfq=727) 37 U/L 5-34 ALT (SGPT) (BEAKER) (test qatx=064) 27 U/L 6-55 EGFR (BEAKER) (test hwsw=1335) 87 mL/min/1.73 sq m ESTIMATED GFR IS NOT ACCURATE CREATININE CLEARANCE IN PREDICTING GLOMERULAR FILTRATION RATE. ESTIMATED GFR IS NOT APPLICABLE FOR DIALYSIS PATIENTS. Specimen slightly ictericBILIRUBIN, [id number] 15:15:00* Test Item Value Reference Range Comments BILIRUBIN DIRECT (BEAKER) (test nwvb=048) 1.8 mg/dL 0.1-0.5 PROTHROMBIN TIME/[id number] 14:57:00* Test Item Value Reference Range Comments PROTIME (BEAKER) (test ihvo=321) 19.7 seconds 11.7-14.7 INR (BEAKER) (test vyul=774) 1.7 <=5.9 RECOMMENDED COUMADIN/WARFARIN INR THERAPY RANGESSTANDARD DOSE: 2.0 - 3.0 Inclu abi: PROPHYLAXIS for venous thrombosis, systemic embolization; TREATMENT for fam ous thrombosis and/or pulmonary embolus.HIGH RISK: Target INR is 2.5-3.5 for pat ients with mechanical heart valves.CBC W/PLT COUNT & AUTO [id number] 14:49:00* Test Item Value Reference Range Comments WHITE BLOOD CELL COUNT (BEAKER) (test qzql=470) 5.6 K/ L 3.5-10.5 RED BLOOD CELL COUNT (BEAKER) (test tfdu=993) 3.67 M/ L 3.93-5.22 HEMOGLOBIN (BEAKER) (test wjat=193) 9.8 GM/DL 11.2-15.7 HEMATOCRIT (BEAKER) (test pium=426) 31.1 % 34.1-44.9 MEAN CORPUSCULAR VOLUME (BEAKER) (test bdvl=912) 84.7 fL 79.4-94.8 MEAN CORPUSCULAR HEMOGLOBIN (BEAKER) (test xxuh=343) 26.7 pg 25.6-32.2 MEAN CORPUSCULAR HEMOGLOBIN CONC (BEAKER) (test gtcs=383) 31.5 GM/DL 32.2-35.5 RED CELL DISTRIBUTION WIDTH (BEAKER) (test ujal=412) 19.4 % 11.7-14.4 PLATELET COUNT (BEAKER) (test qldl=988) 71 K/CU MM 150-450 MEAN PLATELET VOLUME (BEAKER) (test xglt=313) 10.9 fL 9.4-12.3 NUCLEATED RED BLOOD CELLS (BEAKER) (test jzkf=164) 0 /100 WBC 0-0 NEUTROPHILS RELATIVE PERCENT (BEAKER) (test xtle=939) 47 % LYMPHOCYTES RELATIVE PERCENT (BEAKER) (test qebq=164) 39 % MONOCYTES RELATIVE PERCENT (BEAKER) (test zmtp=850) 11 % EOSINOPHILS RELATIVE PERCENT (BEAKER) (test qpvx=033) 1 % BASOPHILS RELATIVE PERCENT (BEAKER) (test xtnj=515) 1 % NEUTROPHILS ABSOLUTE COUNT (BEAKER) (test lbcy=400) 2.64 K/ L 1.56-6.13 LYMPHOCYTES ABSOLUTE COUNT (BEAKER) (test axun=961) 2.19 K/ L 1.18-3.74 MONOCYTES ABSOLUTE COUNT (BEAKER) (test empj=199) 0.64 K/ L 0.24-0.36 EOSINOPHILS ABSOLUTE COUNT (BEAKER) (test wotg=976) 0.07 K/ L 0.04-0.36 BASOPHILS ABSOLUTE COUNT (BEAKER) (test peuo=889) 0.05 K/ L 0.01-0.08 IMMATURE GRANULOCYTES-RELATIVE PERCENT (BEAKER) (test mgqb=5704) 0 % 0-1 CBC W/PLT COUNT & AUTO [id number] 11:44:00* Test Item Value Reference Range Comments WHITE BLOOD CELL COUNT (BEAKER) (test vydz=287) 4.9 K/ L 3.5-10.5 RED BLOOD CELL COUNT (BEAKER) (test jqeo=721) 3.49 M/ L 3.93-5.22 HEMOGLOBIN (BEAKER) (test vidv=420) 9.9 GM/DL 11.2-15.7 HEMATOCRIT (BEAKER) (test fwyn=064) 31.3 % 34.1-44.9 MEAN CORPUSCULAR VOLUME (BEAKER) (test txpx=360) 89.7 fL 79.4-94.8 MEAN CORPUSCULAR HEMOGLOBIN (BEAKER) (test fcof=477) 28.4 pg 25.6-32.2 MEAN CORPUSCULAR HEMOGLOBIN CONC (BEAKER) (test ddfk=032) 31.6 GM/DL 32.2-35.5 RED CELL DISTRIBUTION WIDTH (BEAKER) (test gwgx=823) 19.4 % 11.7-14.4 PLATELET COUNT (BEAKER) (test geej=345) 65 K/CU MM 150-450 MEAN PLATELET VOLUME (BEAKER) (test abyc=394) 10.8 fL 9.4-12.3 NUCLEATED RED BLOOD CELLS (BEAKER) (test blgv=226) 0 /100 WBC 0-0 NEUTROPHILS RELATIVE PERCENT (BEAKER) (test eucy=341) 55 % LYMPHOCYTES RELATIVE PERCENT (BEAKER) (test onaq=553) 32 % MONOCYTES RELATIVE PERCENT (BEAKER) (test bdzz=045) 11 % EOSINOPHILS RELATIVE PERCENT (BEAKER) (test cozm=600) 1 % BASOPHILS RELATIVE PERCENT (BEAKER) (test jcff=123) 1 % NEUTROPHILS ABSOLUTE COUNT (BEAKER) (test efdg=336) 2.66 K/ L 1.56-6.13 LYMPHOCYTES ABSOLUTE COUNT (BEAKER) (test wptp=163) 1.58 K/ L 1.18-3.74 MONOCYTES ABSOLUTE COUNT (BEAKER) (test awcp=737) 0.53 K/ L 0.24-0.36 EOSINOPHILS ABSOLUTE COUNT (BEAKER) (test cokj=368) 0.05 K/ L 0.04-0.36 BASOPHILS ABSOLUTE COUNT (BEAKER) (test ruxs=655) 0.04 K/ L 0.01-0.08 IMMATURE GRANULOCYTES-RELATIVE PERCENT (BEAKER) (test jnrv=5281) 0 % 0-1 COMPREHENSIVE METABOLIC [id number] 11:30:00* Test Item Value Reference Range Comments TOTAL PROTEIN (BEAKER) (test ghoj=910) 6.0 gm/dL 6.0-8.3 ALBUMIN (BEAKER) (test wpab=6966) 2.9 g/dL 3.5-5.0 ALKALINE PHOSPHATASE (BEAKER) (test vdvf=185) 274 U/L 40-150 BILIRUBIN TOTAL (BEAKER) (test jetd=978) 4.1 mg/dL 0.2-1.2 SODIUM (BEAKER) (test mcxb=948) 138 meq/L 136-145 POTASSIUM (BEAKER) (test laoi=740) 3.6 meq/L 3.5-5.1 CHLORIDE (BEAKER) (test unwc=236) 106 meq/L 98-107 CO2 (BEAKER) (test hhvg=808) 25 meq/L 22-29 BLOOD UREA NITROGEN (BEAKER) (test riwg=817) 12 mg/dL 7-21 CREATININE (BEAKER) (test dztw=043) 0.70 mg/dL 0.57-1.25 GLUCOSE RANDOM (BEAKER) (test fmpf=040) 72 mg/dL 70-105 CALCIUM (BEAKER) (test kltu=792) 8.4 mg/dL 8.4-10.2 AST (SGOT) (BEAKER) (test dchy=777) 43 U/L 5-34 ALT (SGPT) (BEAKER) (test rvlr=144) 29 U/L 6-55 EGFR (BEAKER) (test xori=5826) 86 mL/min/1.73 sq m ESTIMATED GFR IS NOT ACCURATE CREATININE CLEARANCE IN PREDICTING GLOMERULAR FILTRATION RATE. ESTIMATED GFR IS NOT APPLICABLE FOR DIALYSIS PATIENTS. Specimen slightly ictericBILIRUBIN, [id number] 11:30:00* Test Item Value Reference Range Comments BILIRUBIN DIRECT (BEAKER) (test caji=154) 2.5 mg/dL 0.1-0.5 PROTHROMBIN TIME/[id number] 11:20:00* Test Item Value Reference Range Comments PROTIME (BEAKER) (test zfpj=866) 20.2 seconds 11.7-14.7 INR (BEAKER) (test gmsm=174) 1.7 <=5.9 RECOMMENDED COUMADIN/WARFARIN INR THERAPY RANGESSTANDARD DOSE: 2.0 - 3.0 Inclu abi: PROPHYLAXIS for venous thrombosis, systemic embolization; TREATMENT for fam ous thrombosis and/or pulmonary embolus.HIGH RISK: Target INR is 2.5-3.5 for pat ients with mechanical heart valves.TISSUE [id number] 17:11:00Surgical Pathology Report Case: [id number] Authorizing Provider: Malachi Concepcion MD Collected: 02/09/2018929 Ordering Location: [facility] Endoscopy Received: 02/09/2018 1150 Services Pathologist: Esteban Hart MD Specimen: Pancreas, Head, cyst A. PANCREAS, HEAD CYST, FNA GUIDED BIOPSY: - FRAGMENT OF FIBROUS TISSUE LINED BY NON-MUCINOUS BENIGN EPITHELIUM - NEGATIVE FOR MA LIGNANCY (SEE COMMENT) Signing Pathologist Direct Phone Line: [phone] lectronically signed by Esteban Hart MD on 02/11/2018 at 5:11 PMSections show two fragments of fibrous tissue, one of which has a benign non-mucinous cu boidal lining epithelium. The other fragment is devoid of lining epithelium. Muc icarmine stain does not show definite evidence of intracellular mucin. This coul d represent the cyst wall of a serous cystadenoma. Clinical and radiologic corre lation is recommended.Also noted in the background are multiple cores of pancre atic parenchyma which focally shows changes consistent with chronic pancreatitis and mucinous metaplasia. IDC: Dr. Shelli [id number] cystFine needle aspirate, pancreas headThe specimen is received in a formalin-filled con tainer and labeled with the patient's information and labeled "FNA pancreas head " and consists of multiple stringy fragments of kenney hemorrhagic soft tissue. The specimen measures 0.8 x 0.3 x 0.1 cm in aggregate. Submitted entirely A1. CG/pl Performed.FINE NEEDLE ASPIRATION BY [id number] 14:42:00Medical Cytology Report Case: [id number] Authorizing Provider: Malachi Concepcion MD Collected: 02/09/2018929 Ordering Location: [facility] Endoscopy Received: 02/09/2018 1119 Services Pathologist: Alberto Mott MD Specimen: Pancreas, Head PANCREAS HEAD CYST FNA BY CLINICIAN (CYTOSPINS AND CELL BLOCK OF ASPIRATE): - NEGATIVE FOR MALIGNANCY - The mu jordana stain shows focal positive staining in the background smear Signing Pat hologist Direct Phone Line: [phone] signed by Alberto Mott MD on 02/10/2018 at 2:42 PMThe cell block shows acinar pancreas with c hronic pancreatitis but no atypia or malignancy is seen.Please see surgical case [id number], [id number], 36892(2.9 X 2.4 cm) Cystic lesion in the pancreatic hea dPANCREAS HEAD CYST FNA20 mls in cytorich red; 4 cytospins, 1 mucin stain, cell blockCollected: [id number]: [id number] following special studies were perform ed on this case and the interpretation is incorporated in the diagnostic report above:[facility], [facility] of Pathology, [address] [place] [id number], [facility]hyAd[facility], [facility] of Pathology, [address] [place] [id number], Tel FINE NEEDLE ASPIRATE (FNA) [id number] 13:00:00* Test Item Value Reference Range Comments CYTOLOGY RESULT POINTER (BEAKER) (test siww=7280) See Separate Report PROTHROMBIN [id number] 09:04:00* Test Item Value Reference Range Comments PROTIME (BEAKER) (test qfqe=014) 20.2 seconds 11.7-14.7 INR (BEAKER) (test fnbj=610) 1.7 <=5.9 RECOMMENDED COUMADIN/WARFARIN INR THERAPY RANGESSTANDARD DOSE: 2.0 - 3.0 Inclu abi: PROPHYLAXIS for venous thrombosis, systemic embolization; TREATMENT for fam ous thrombosis and/or pulmonary embolus.HIGH RISK: Target INR is 2.5-3.5 for pat ients with mechanical heart valves.CBC W/PLT COUNT & AUTO [id number] 08:44:00* Test Item Value Reference Range Comments WHITE BLOOD CELL COUNT (BEAKER) (test afda=458) 4.3 K/ L 3.5-10.5 RED BLOOD CELL COUNT (BEAKER) (test yeei=252) 3.28 M/ L 3.93-5.22 HEMOGLOBIN (BEAKER) (test zmoj=287) 9.2 GM/DL 11.2-15.7 HEMATOCRIT (BEAKER) (test jaof=697) 29.0 % 34.1-44.9 MEAN CORPUSCULAR VOLUME (BEAKER) (test ttjc=589) 88.4 fL 79.4-94.8 MEAN CORPUSCULAR HEMOGLOBIN (BEAKER) (test sxfv=204) 28.0 pg 25.6-32.2 MEAN CORPUSCULAR HEMOGLOBIN CONC (BEAKER) (test mtsy=130) 31.7 GM/DL 32.2-35.5 RED CELL DISTRIBUTION WIDTH (BEAKER) (test krcx=034) 19.9 % 11.7-14.4 PLATELET COUNT (BEAKER) (test naeo=139) 74 K/CU MM 150-450 MEAN PLATELET VOLUME (BEAKER) (test pemt=751) 10.3 fL 9.4-12.3 NUCLEATED RED BLOOD CELLS (BEAKER) (test zyji=495) 0 /100 WBC 0-0 NEUTROPHILS RELATIVE PERCENT (BEAKER) (test wltw=727) 59 % LYMPHOCYTES RELATIVE PERCENT (BEAKER) (test gboa=937) 29 % MONOCYTES RELATIVE PERCENT (BEAKER) (test txem=305) 10 % EOSINOPHILS RELATIVE PERCENT (BEAKER) (test igbc=208) 2 % BASOPHILS RELATIVE PERCENT (BEAKER) (test qxew=659) 1 % NEUTROPHILS ABSOLUTE COUNT (BEAKER) (test zpvi=033) 2.55 K/ L 1.56-6.13 LYMPHOCYTES ABSOLUTE COUNT (BEAKER) (test drig=617) 1.24 K/ L 1.18-3.74 MONOCYTES ABSOLUTE COUNT (BEAKER) (test svvu=935) 0.43 K/ L 0.24-0.36 EOSINOPHILS ABSOLUTE COUNT (BEAKER) (test hjbk=364) 0.08 K/ L 0.04-0.36 BASOPHILS ABSOLUTE COUNT (BEAKER) (test ixrb=792) 0.03 K/ L 0.01-0.08 IMMATURE GRANULOCYTES-RELATIVE PERCENT (BEAKER) (test drmy=0283) 0 % 0-1 PROTHROMBIN [id number] 15:12:00* Test Item Value Reference Range Comments PROTIME (BEAKER) (test rxsb=008) 23.7 seconds 11.7-14.7 INR (BEAKER) (test mjlz=103) 2.1 <=5.9 RECOMMENDED COUMADIN/WARFARIN INR THERAPY RANGESSTANDARD DOSE: 2.0 - 3.0 Inclu abi: PROPHYLAXIS for venous thrombosis, systemic embolization; TREATMENT for fam ous thrombosis and/or pulmonary embolus.HIGH RISK: Target INR is 2.5-3.5 for pat ients with mechanical heart valves.COMPREHENSIVE METABOLIC [id number] 15:08:00* Test Item Value Reference Range Comments TOTAL PROTEIN (BEAKER) (test ajdn=732) 5.9 gm/dL 6.0-8.3 ALBUMIN (BEAKER) (test rfcc=3854) 2.7 g/dL 3.5-5.0 ALKALINE PHOSPHATASE (BEAKER) (test lloq=995) 182 U/L 40-150 BILIRUBIN TOTAL (BEAKER) (test noug=738) 6.7 mg/dL 0.2-1.2 SODIUM (BEAKER) (test tnkc=617) 133 meq/L 136-145 POTASSIUM (BEAKER) (test xkkq=772) 3.9 meq/L 3.5-5.1 CHLORIDE (BEAKER) (test otct=969) 103 meq/L 98-107 CO2 (BEAKER) (test nmhi=473) 24 meq/L 22-29 BLOOD UREA NITROGEN (BEAKER) (test sqhr=216) 10 mg/dL 7-21 CREATININE (BEAKER) (test xtvg=536) 0.69 mg/dL 0.57-1.25 GLUCOSE RANDOM (BEAKER) (test opop=871) 111 mg/dL 70-105 CALCIUM (BEAKER) (test veef=269) 8.5 mg/dL 8.4-10.2 AST (SGOT) (BEAKER) (test wmkw=895) 46 U/L 5-34 ALT (SGPT) (BEAKER) (test bqdk=994) 29 U/L 6-55 EGFR (BEAKER) (test hlpi=3592) 87 mL/min/1.73 sq m ESTIMATED GFR IS NOT ACCURATE CREATININE CLEARANCE IN PREDICTING GLOMERULAR FILTRATION RATE. ESTIMATED GFR IS NOT APPLICABLE FOR DIALYSIS PATIENTS. Specimen moderately ictericBILIRUBIN, [id number] 15:08:00* Test Item Value Reference Range Comments BILIRUBIN DIRECT (BEAKER) (test bdhx=116) 4.3 mg/dL 0.1-0.5 CBC W/PLT COUNT & AUTO [id number] 14:49:00* Test Item Value Reference Range Comments WHITE BLOOD CELL COUNT (BEAKER) (test glem=773) 6.1 K/ L 3.5-10.5 RED BLOOD CELL COUNT (BEAKER) (test qxip=295) 3.21 M/ L 3.93-5.22 HEMOGLOBIN (BEAKER) (test cqrd=488) 9.1 GM/DL 11.2-15.7 HEMATOCRIT (BEAKER) (test iefp=262) 28.7 % 34.1-44.9 MEAN CORPUSCULAR VOLUME (BEAKER) (test zaxm=763) 89.4 fL 79.4-94.8 MEAN CORPUSCULAR HEMOGLOBIN (BEAKER) (test ofql=555) 28.3 pg 25.6-32.2 MEAN CORPUSCULAR HEMOGLOBIN CONC (BEAKER) (test ulet=575) 31.7 GM/DL 32.2-35.5 RED CELL DISTRIBUTION WIDTH (BEAKER) (test fiff=473) 19.7 % 11.7-14.4 PLATELET COUNT (BEAKER) (test lvjk=350) 70 K/CU MM 150-450 MEAN PLATELET VOLUME (BEAKER) (test hoyg=713) 9.7 fL 9.4-12.3 NUCLEATED RED BLOOD CELLS (BEAKER) (test cpuw=357) 0 /100 WBC 0-0 NEUTROPHILS RELATIVE PERCENT (BEAKER) (test thdw=070) 53 % LYMPHOCYTES RELATIVE PERCENT (BEAKER) (test xrfl=659) 36 % MONOCYTES RELATIVE PERCENT (BEAKER) (test zpvo=726) 9 % EOSINOPHILS RELATIVE PERCENT (BEAKER) (test tuzf=700) 2 % BASOPHILS RELATIVE PERCENT (BEAKER) (test qgvl=079) 1 % NEUTROPHILS ABSOLUTE COUNT (BEAKER) (test niyv=679) 3.23 K/ L 1.56-6.13 LYMPHOCYTES ABSOLUTE COUNT (BEAKER) (test yaef=780) 2.16 K/ L 1.18-3.74 MONOCYTES ABSOLUTE COUNT (BEAKER) (test pcuw=941) 0.54 K/ L 0.24-0.36 EOSINOPHILS ABSOLUTE COUNT (BEAKER) (test zmut=251) 0.09 K/ L 0.04-0.36 BASOPHILS ABSOLUTE COUNT (BEAKER) (test bjib=844) 0.04 K/ L 0.01-0.08 IMMATURE GRANULOCYTES-RELATIVE PERCENT (BEAKER) (test ukya=6887) 0 % 0-1 ALPHA FETOPROTEIN (AFP), TUMOR [id number] 17:55:00* Test Item Value Reference Range Comments ALPHA-FETOPROTEIN (JANELL) (test xyps=9185) 4.8 ng/mL <10.0 MR, ABDOMEN, [id number] 17:53:00Referring: self referral per patientInclude Abdominal VesselsFINAL REPORT MRI of the abdomen. CLINICAL HISTORY: screening for malignant neoplasm. COMPARISON STUDY: MRCP dated October 03, [address] scan dated June 18, 2017. Technique: Multiplanar, multisequence imaging of the abdomen was acquired both pre and post administration of intravenous gadolinium in a dynamic fashion. No oral contrast was administered. FINDINGS: No pleural effusion is seen. There are bilateral breast prostheses. The liver is nodular and cirrhotic in appearance. A 4 mm hypervascular lesion is seen in the right hepatic dome which remains hypervascular multiple phases and partially normalizes with the surrounding liver on the delayed phase. No other hepatic masses are identified. A TIPS shunt is seen. The main portal vein is patent measuring 1.5 cm. Cholelithiasis is seen with no biliary dilatation. The pancreas demonstrates diffuse heterogeneous T1 and T2 weighted signal throughout the head and uncinate process with decreased enhancement throughout this region, nonspecific in appearance. A tiny cyst is also noted in the pancreatic tail, stable. The spleen, and adrenal glands and kidneys are unremarkable. There are no dilated loops of bowel seen to suggest obstruction. No ascites is seen. There is no suspicious adenopathy. The visualized osseous structures are unremarkable. IMPRESSION:1. Nodular, cirrhotic appearing liver.2. 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 An additional 3-6 month follow-up study is recommended.3. Diffusely heterogeneously enhancing pancreatic head and uncinate process. This could represent a cystic neoplasm or multiple dilated sidebranches. It is similar to June 18, 2017. Further ass essment with endoscopic ultrasound is recommended to exclude a mass.4. Stable ti ny pancreatic tail cyst.5. Cholelithiasis. Signed: Minor Chaudhry MDReport Veri fied Date/Time: 01/06/2018 17:53:29 Reading Location: [address] 05 :53 PM COMPREHENSIVE METABOLIC [id number] 17:40:00* Test Item Value Reference Range Comments TOTAL PROTEIN (BEAKER) (test fcir=002) 5.8 gm/dL 6.0-8.3 ALBUMIN (BEAKER) (test ojsn=0411) 2.7 g/dL 3.5-5.0 ALKALINE PHOSPHATASE (BEAKER) (test nwvw=534) 238 U/L 40-150 BILIRUBIN TOTAL (BEAKER) (test ebhl=463) 6.1 mg/dL 0.2-1.2 SODIUM (BEAKER) (test msvh=950) 133 meq/L 136-145 POTASSIUM (BEAKER) (test wkxu=216) 3.9 meq/L 3.5-5.1 CHLORIDE (BEAKER) (test gdrs=676) 105 meq/L 98-107 CO2 (BEAKER) (test rwyu=247) 21 meq/L 22-29 BLOOD UREA NITROGEN (BEAKER) (test ruxp=587) 10 mg/dL 7-21 CREATININE (BEAKER) (test wavj=652) 0.71 mg/dL 0.57-1.25 GLUCOSE RANDOM (BEAKER) (test lmih=760) 130 mg/dL 70-105 CALCIUM (BEAKER) (test srpv=125) 8.4 mg/dL 8.4-10.2 AST (SGOT) (BEAKER) (test gjdm=240) 44 U/L 5-34 ALT (SGPT) (BEAKER) (test lzno=001) 25 U/L 6-55 EGFR (BEAKER) (test vqgd=0926) 85 mL/min/1.73 sq m ESTIMATED GFR IS NOT ACCURATE CREATININE CLEARANCE IN PREDICTING GLOMERULAR FILTRATION RATE. ESTIMATED GFR IS NOT APPLICABLE FOR DIALYSIS PATIENTS. Specimen moderately ictericBILIRUBIN, [id number] 17:40:00* Test Item Value Reference Range Comments BILIRUBIN DIRECT (BEAKER) (test qkue=675) 3.1 mg/dL 0.1-0.5 PROTHROMBIN [id number] 17:31:00* Test Item Value Reference Range Comments PROTIME (BEAKER) (test fwtk=618) 23.7 seconds 11.7-14.7 INR (BEAKER) (test dnup=952) 2.1 <=5.9 RECOMMENDED COUMADIN/WARFARIN INR THERAPY RANGESSTANDARD DOSE: 2.0 - 3.0 Inclu abi: PROPHYLAXIS for venous thrombosis, systemic embolization; TREATMENT for fam ous thrombosis and/or pulmonary embolus.HIGH RISK: Target INR is 2.5-3.5 for pat ients with mechanical heart valves.CBC W/PLT COUNT & AUTO [id number] 17:03:00* Test Item Value Reference Range Comments WHITE BLOOD CELL COUNT (BEAKER) (test dxzu=463) 5.7 K/ L 3.5-10.5 RED BLOOD CELL COUNT (BEAKER) (test awox=530) 3.28 M/ L 3.93-5.22 HEMOGLOBIN (BEAKER) (test hlce=303) 9.4 GM/DL 11.2-15.7 HEMATOCRIT (BEAKER) (test czow=906) 30.2 % 34.1-44.9 MEAN CORPUSCULAR VOLUME (BEAKER) (test ksaa=927) 92.1 fL 79.4-94.8 MEAN CORPUSCULAR HEMOGLOBIN (BEAKER) (test lmdi=775) 28.7 pg 25.6-32.2 MEAN CORPUSCULAR HEMOGLOBIN CONC (BEAKER) (test xrtj=479) 31.1 GM/DL 32.2-35.5 RED CELL DISTRIBUTION WIDTH (BEAKER) (test ajoe=108) 18.5 % 11.7-14.4 PLATELET COUNT (BEAKER) (test luvb=845) 75 K/CU MM 150-450 MEAN PLATELET VOLUME (BEAKER) (test vftv=097) 10.9 fL 9.4-12.3 NUCLEATED RED BLOOD CELLS (BEAKER) (test orru=258) 0 /100 WBC 0-0 NEUTROPHILS RELATIVE PERCENT (BEAKER) (test rqav=750) 54 % LYMPHOCYTES RELATIVE PERCENT (BEAKER) (test ovqw=779) 36 % MONOCYTES RELATIVE PERCENT (BEAKER) (test mewu=277) 9 % EOSINOPHILS RELATIVE PERCENT (BEAKER) (test gmlm=564) 1 % BASOPHILS RELATIVE PERCENT (BEAKER) (test pgsi=570) 1 % NEUTROPHILS ABSOLUTE COUNT (BEAKER) (test nlze=155) 3.08 K/ L 1.56-6.13 LYMPHOCYTES ABSOLUTE COUNT (BEAKER) (test omvz=738) 2.02 K/ L 1.18-3.74 MONOCYTES ABSOLUTE COUNT (BEAKER) (test agst=046) 0.49 K/ L 0.24-0.36 EOSINOPHILS ABSOLUTE COUNT (BEAKER) (test jaoa=209) 0.06 K/ L 0.04-0.36 BASOPHILS ABSOLUTE COUNT (BEAKER) (test gjpq=612) 0.03 K/ L 0.01-0.08 IMMATURE GRANULOCYTES-RELATIVE PERCENT (BEAKER) (test qqbv=3698) 0 % 0-1 URINE [id number] 09:39:00* Test Item Value Reference Range Comments CULTURE (BEAKER) (test kheo=2232) ENTEROCOCCUS SPECIES 10-19,000 col/mL Enterococcus species Ampicillin (test code=26) Linezolid (test code=40) Nitrofurantoin (test code=23) Tetracycline (test code=2) Vancomycin (test code=13) >100,000 col/mL skin kristi<10,000 col/mL Gram Negative rods of two typesT4 2017-12-24 14:07:00* Test Item Value Reference Range Comments T4 TOTAL (BEAKER) (test qwwp=521) 4.0 ug/dL 4.9-11.7 [id number] 14:07:00* Test Item Value Reference Range Comments THYROID STIMULATING HORMONE (BEAKER) (test gdto=083) 2.57 uIU/mL 0.35-4.94 [id number] 14:07:00* Test Item Value Reference Range Comments T3 TOTAL (BEAKER) (test phdw=882) 70 ng/dL 48-159 URINALYSIS W/ [id number] 13:42:00* Test Item Value Reference Range Comments COLOR (BEAKER) (test sruw=147) Dark Yellow CLARITY (BEAKER) (test fpzb=106) Hazy SPECIFIC GRAVITY UA (BEAKER) (test kwrm=629) 1.019 1.001-1.035 PH UA (BEAKER) (test zbzy=362) 6.0 5.0-8.0 PROTEIN UA (BEAKER) (test jlkv=139) 20 mg/dL Negative GLUCOSE UA (BEAKER) (test amgw=587) Negative Negative KETONES UA (BEAKER) (test dtva=025) Trace Negative BILIRUBIN UA (BEAKER) (test bhrf=133) Positive Negative BLOOD UA (BEAKER) (test hilf=352) Moderate Negative NITRITE UA (BEAKER) (test ucbo=874) Negative Negative LEUKOCYTE ESTERASE UA (BEAKER) (test riwt=340) Negative Negative UROBILINOGEN UA (BEAKER) (test vbir=886) 6.0 mg/dL 0.2-1.0 RBC UA (BEAKER) (test gidf=957) 9 /HPF WBC UA (BEAKER) (test hesf=576) 5 /HPF MUCUS (BEAKER) (test bxcw=9036) Many SQUAMOUS EPITHELIAL (BEAKER) (test kbea=754) 37 /HPF CALCIUM OXALATE CRYSTALS (BEAKER) (test typd=047) Many SOURCE(BEAKER) (test lacg=5900) Urine, Clean Catch FILTER IONIZED [id number] 13:28:00* Test Item Value Reference Range Comments FILTER IONIZED CALCIUM (BEAKER) (test rbip=6527) 1.07 mmol/L Reference Range: No [id number] 13:24:00* Test Item Value Reference Range Comments PHOSPHORUS (BEAKER) (test ffxb=183) 4.1 mg/dL 2.3-4.7 [id number] 13:24:00* Test Item Value Reference Range Comments MAGNESIUM (BEAKER) (test yuft=529) 1.8 mg/dL 1.6-2.6 COMPREHENSIVE METABOLIC [id number] 13:24:00* Test Item Value Reference Range Comments TOTAL PROTEIN (BEAKER) (test lxjv=761) 6.6 gm/dL 6.0-8.3 ALBUMIN (BEAKER) (test wwqw=9263) 3.1 g/dL 3.5-5.0 ALKALINE PHOSPHATASE (BEAKER) (test aoih=777) 270 U/L 40-150 BILIRUBIN TOTAL (BEAKER) (test pbox=093) 7.0 mg/dL 0.2-1.2 SODIUM (BEAKER) (test clmp=433) 136 meq/L 136-145 POTASSIUM (BEAKER) (test ngta=060) 3.6 meq/L 3.5-5.1 CHLORIDE (BEAKER) (test bjvc=700) 105 meq/L 98-107 CO2 (BEAKER) (test ybtp=724) 23 meq/L 22-29 BLOOD UREA NITROGEN (BEAKER) (test dzcu=547) 9 mg/dL 7-21 CREATININE (BEAKER) (test uvto=003) 0.68 mg/dL 0.57-1.25 GLUCOSE RANDOM (BEAKER) (test qshi=453) 65 mg/dL 70-105 CALCIUM (BEAKER) (test jobq=766) 8.6 mg/dL 8.4-10.2 AST (SGOT) (BEAKER) (test mgpd=153) 54 U/L 5-34 ALT (SGPT) (BEAKER) (test etjh=237) 33 U/L 6-55 EGFR (BEAKER) (test gvbx=6781) 89 mL/min/1.73 sq m ESTIMATED GFR IS NOT ACCURATE CREATININE CLEARANCE IN PREDICTING GLOMERULAR FILTRATION RATE. ESTIMATED GFR IS NOT APPLICABLE FOR DIALYSIS PATIENTS. Specimen moderately ictericHEPATIC FUNCTION [id number] 13:24:00* Test Item Value Reference Range Comments TOTAL PROTEIN (BEAKER) (test cqat=558) 6.6 gm/dL 6.0-8.3 ALBUMIN (BEAKER) (test effs=1503) 3.1 g/dL 3.5-5.0 BILIRUBIN TOTAL (BEAKER) (test elzx=144) 7.0 mg/dL 0.2-1.2 BILIRUBIN DIRECT (BEAKER) (test htmk=188) 3.5 mg/dL 0.1-0.5 ALKALINE PHOSPHATASE (BEAKER) (test wuah=186) 270 U/L 40-150 AST (SGOT) (BEAKER) (test hqfi=603) 54 U/L 5-34 ALT (SGPT) (BEAKER) (test pvel=944) 33 U/L 6-55 Specimen moderately ictericGAMMA GLUTAMYL TRANSFERASE (GGT)2017-12-24 13:24:00* Test Item Value Reference Range Comments GAMMA GLUTAMYL TRANSFERASE (BEAKER) (test csuu=244) 27 U/L 9-64 Specimen moderately ictericRAD, CHEST, 1 VIEW, NON [id number] 13:22:00 Referring: self referral per patientChronic Liver Failure pending Transplantatio n.Reason for exam:->Pre opShould this be performed at the bedside?->YesFINAL REPORT CLINICAL HISTORY: Pre op TECHNIQUE: 1 view of the chest. COMPARISON: 08/04/2017 IMPRESSION: There are no focal infiltrates or effusions. The cardiomediastinal silhouette is magnified by technique. The oss eous structures appear intact. Signed: Marcela Celeste MDReport Verified Date/Time : 12/24/2017 13:22:50 Reading Location: [facility] B1 [id number] Consult Reading Room 2017-12-24 13:21:00* Test Item Value Reference Range Comments PARTIAL THROMBOPLASTIN TIME (BEAKER) (test uojk=099) 51.2 seconds 22.5-36.0 PROTHROMBIN TIME/[id number] 13:20:00* Test Item Value Reference Range Comments PROTIME (BEAKER) (test nsrp=637) 21.8 seconds 11.7-14.7 INR (BEAKER) (test ojxj=151) 1.9 <=5.9 RECOMMENDED COUMADIN/WARFARIN INR THERAPY RANGESSTANDARD DOSE: 2.0 - 3.0 Inclu abi: PROPHYLAXIS for venous thrombosis, systemic embolization; TREATMENT for fam ous thrombosis and/or pulmonary embolus.HIGH RISK: Target INR is 2.5-3.5 for pat ients with mechanical heart valves.CBC W/PLT COUNT & AUTO [id number] 13:11:00* Test Item Value Reference Range Comments WHITE BLOOD CELL COUNT (BEAKER) (test khqo=795) 6.1 K/ L 3.5-10.5 RED BLOOD CELL COUNT (BEAKER) (test rgnc=536) 3.56 M/ L 3.93-5.22 HEMOGLOBIN (BEAKER) (test kbpp=915) 10.2 GM/DL 11.2-15.7 HEMATOCRIT (BEAKER) (test adet=865) 32.0 % 34.1-44.9 MEAN CORPUSCULAR VOLUME (BEAKER) (test uxfe=210) 89.9 fL 79.4-94.8 MEAN CORPUSCULAR HEMOGLOBIN (BEAKER) (test vxyn=690) 28.7 pg 25.6-32.2 MEAN CORPUSCULAR HEMOGLOBIN CONC (BEAKER) (test pdmx=431) 31.9 GM/DL 32.2-35.5 RED CELL DISTRIBUTION WIDTH (BEAKER) (test bbrk=547) 18.0 % 11.7-14.4 PLATELET COUNT (BEAKER) (test ojhu=692) 83 K/CU MM 150-450 MEAN PLATELET VOLUME (BEAKER) (test wtyl=756) 9.9 fL 9.4-12.3 NUCLEATED RED BLOOD CELLS (BEAKER) (test fzzj=424) 0 /100 WBC 0-0 NEUTROPHILS RELATIVE PERCENT (BEAKER) (test bcef=609) 57 % LYMPHOCYTES RELATIVE PERCENT (BEAKER) (test lrap=531) 29 % MONOCYTES RELATIVE PERCENT (BEAKER) (test jemv=991) 11 % EOSINOPHILS RELATIVE PERCENT (BEAKER) (test mqet=306) 1 % BASOPHILS RELATIVE PERCENT (BEAKER) (test pxzg=066) 1 % NEUTROPHILS ABSOLUTE COUNT (BEAKER) (test ouuw=332) 3.49 K/ L 1.56-6.13 LYMPHOCYTES ABSOLUTE COUNT (BEAKER) (test ceju=152) 1.77 K/ L 1.18-3.74 MONOCYTES ABSOLUTE COUNT (BEAKER) (test dkdo=100) 0.68 K/ L 0.24-0.36 EOSINOPHILS ABSOLUTE COUNT (BEAKER) (test coda=335) 0.08 K/ L 0.04-0.36 BASOPHILS ABSOLUTE COUNT (BEAKER) (test yyya=975) 0.05 K/ L 0.01-0.08 IMMATURE GRANULOCYTES-RELATIVE PERCENT (BEAKER) (test zlsk=9470) 0 % 0-1 SCREEN, [id number] 13:01:00* Test Item Value Reference Range Comments TEST URINE (BEAKER) (test ercc=153) Negative COMPREHENSIVE METABOLIC [id number] 16:46:00* Test Item Value Reference Range Comments TOTAL PROTEIN (BEAKER) (test gtjf=206) 5.7 gm/dL 6.0-8.3 ALBUMIN (BEAKER) (test tarz=3389) 2.6 g/dL 3.5-5.0 ALKALINE PHOSPHATASE (BEAKER) (test xwfb=309) 210 U/L 40-150 BILIRUBIN TOTAL (BEAKER) (test ptbu=230) 6.5 mg/dL 0.2-1.2 SODIUM (BEAKER) (test crtz=010) 136 meq/L 136-145 POTASSIUM (BEAKER) (test icrq=147) 3.8 meq/L 3.5-5.1 CHLORIDE (BEAKER) (test gyep=432) 104 meq/L 98-107 CO2 (BEAKER) (test rygv=106) 24 meq/L 22-29 BLOOD UREA NITROGEN (BEAKER) (test yncs=971) 9 mg/dL 7-21 CREATININE (BEAKER) (test atla=651) 0.68 mg/dL 0.57-1.25 GLUCOSE RANDOM (BEAKER) (test ncvc=344) 110 mg/dL 70-105 CALCIUM (BEAKER) (test ayxs=002) 8.3 mg/dL 8.4-10.2 AST (SGOT) (BEAKER) (test jzvi=662) 50 U/L 5-34 ALT (SGPT) (BEAKER) (test dyjh=052) 34 U/L 6-55 EGFR (BEAKER) (test jdja=8856) 89 mL/min/1.73 sq m ESTIMATED GFR IS NOT ACCURATE CREATININE CLEARANCE IN PREDICTING GLOMERULAR FILTRATION RATE. ESTIMATED GFR IS NOT APPLICABLE FOR DIALYSIS PATIENTS. Specimen moderately ictericBILIRUBIN, [id number] 16:46:00* Test Item Value Reference Range Comments BILIRUBIN DIRECT (BEAKER) (test vmha=885) 3.2 mg/dL 0.1-0.5 PROTHROMBIN [id number] 16:37:00* Test Item Value Reference Range Comments PROTIME (BEAKER) (test hfwv=021) 22.8 seconds 11.7-14.7 INR (BEAKER) (test ieln=928) 2.0 <=5.9 RECOMMENDED COUMADIN/WARFARIN INR THERAPY RANGESSTANDARD DOSE: 2.0 - 3.0 Inclu abi: PROPHYLAXIS for venous thrombosis, systemic embolization; TREATMENT for fam ous thrombosis and/or pulmonary embolus.HIGH RISK: Target INR is 2.5-3.5 for pat ients with mechanical heart valves.CBC W/PLT COUNT & AUTO [id number] 16:26:00* Test Item Value Reference Range Comments WHITE BLOOD CELL COUNT (BEAKER) (test juqt=441) 4.7 K/ L 3.5-10.5 RED BLOOD CELL COUNT (BEAKER) (test pchr=477) 2.85 M/ L 3.93-5.22 HEMOGLOBIN (BEAKER) (test xgxs=051) 8.5 GM/DL 11.2-15.7 HEMATOCRIT (BEAKER) (test hywy=920) 27.0 % 34.1-44.9 MEAN CORPUSCULAR VOLUME (BEAKER) (test fpgc=828) 94.7 fL 79.4-94.8 MEAN CORPUSCULAR HEMOGLOBIN (BEAKER) (test zsie=897) 29.8 pg 25.6-32.2 MEAN CORPUSCULAR HEMOGLOBIN CONC (BEAKER) (test owlb=452) 31.5 GM/DL 32.2-35.5 RED CELL DISTRIBUTION WIDTH (BEAKER) (test bjgc=137) 20.9 % 11.7-14.4 PLATELET COUNT (BEAKER) (test rwba=548) 59 K/CU MM 150-450 MEAN PLATELET VOLUME (BEAKER) (test ovtq=884) 10.6 fL 9.4-12.3 NUCLEATED RED BLOOD CELLS (BEAKER) (test equj=510) 0 /100 WBC 0-0 NEUTROPHILS RELATIVE PERCENT (BEAKER) (test uazu=117) 61 % LYMPHOCYTES RELATIVE PERCENT (BEAKER) (test toqb=474) 26 % MONOCYTES RELATIVE PERCENT (BEAKER) (test oazo=362) 11 % EOSINOPHILS RELATIVE PERCENT (BEAKER) (test pymn=638) 1 % BASOPHILS RELATIVE PERCENT (BEAKER) (test wyni=725) 0 % NEUTROPHILS ABSOLUTE COUNT (BEAKER) (test qlcm=291) 2.91 K/ L 1.56-6.13 LYMPHOCYTES ABSOLUTE COUNT (BEAKER) (test swqo=193) 1.21 K/ L 1.18-3.74 MONOCYTES ABSOLUTE COUNT (BEAKER) (test xuec=331) 0.53 K/ L 0.24-0.36 EOSINOPHILS ABSOLUTE COUNT (BEAKER) (test jxkc=538) 0.05 K/ L 0.04-0.36 BASOPHILS ABSOLUTE COUNT (BEAKER) (test miju=192) 0.02 K/ L 0.01-0.08 IMMATURE GRANULOCYTES-RELATIVE PERCENT (BEAKER) (test wahw=1550) 0 % 0-1 FL, [id number] 15:22:00Referring: self referral per patientINTRA OP IMAGINGReason for exam:->CHOLEDOCHOLITHIASIS, STENT REMOVALFINAL REPORT INDICATION: Choledocholithiasis, stent removal COMPARISON: 10/05/2017 IMPRESSION: 12 fluoroscopic images obtained during a surgical procedure performed by another physician (NOT the undersigned radiologist) were provided for postprocedural interpretation. Intraoperative consultation with the radiologist was not requested. On the initial image, a biliary stent is in place. A pancreatic duct stent is also present. There is removal of the biliary stent. There is biliary ductal dilatation. A balloon sweep is performed. There is contrast drainage into the duodenum. Fluoroscopy was not performed by the u ndersigned radiologist. Provided fluoroscopy time: 28.3 seconds, 12 images Sign ed: Sandra Alfaro MDReport Verified Date/Time: 10/28/2017 15:22:09 Readi ng Location: [address] Consult Reading Room ELET [id number] 13:48:00* Test Item Value Reference Range Comments PLATELET COUNT (BEAKER) (test vvmr=082) 91 K/CU MM 150-450 POTASSIUM-STAT [id number] 13:26:00* Test Item Value Reference Range Comments POTASSIUM (BEAKER) (test onox=725) 3.4 meq/L 3.6-5.5 COMPREHENSIVE METABOLIC [id number] 14:49:00* Test Item Value Reference Range Comments TOTAL PROTEIN (BEAKER) (test ukqd=229) 6.0 gm/dL 6.0-8.3 ALBUMIN (BEAKER) (test sxrd=2983) 2.5 g/dL 3.5-5.0 ALKALINE PHOSPHATASE (BEAKER) (test wpto=992) 219 U/L 40-150 BILIRUBIN TOTAL (BEAKER) (test kesv=936) 5.1 mg/dL 0.2-1.2 SODIUM (BEAKER) (test qfor=479) 134 meq/L 136-145 POTASSIUM (BEAKER) (test jsyl=852) 4.0 meq/L 3.5-5.1 CHLORIDE (BEAKER) (test xarx=048) 103 meq/L 98-107 CO2 (BEAKER) (test emlj=958) 26 meq/L 22-29 BLOOD UREA NITROGEN (BEAKER) (test lqeg=431) 8 mg/dL 7-21 CREATININE (BEAKER) (test cobz=660) 0.72 mg/dL 0.57-1.25 GLUCOSE RANDOM (BEAKER) (test ovmz=008) 128 mg/dL 70-105 CALCIUM (BEAKER) (test ntwt=037) 7.9 mg/dL 8.4-10.2 AST (SGOT) (BEAKER) (test pcfs=538) 43 U/L 5-34 ALT (SGPT) (BEAKER) (test mbqd=225) 27 U/L 6-55 EGFR (BEAKER) (test krec=1925) 83 mL/min/1.73 sq m ESTIMATED GFR IS NOT ACCURATE CREATININE CLEARANCE IN PREDICTING GLOMERULAR FILTRATION RATE. ESTIMATED GFR IS NOT APPLICABLE FOR DIALYSIS PATIENTS. Specimen moderately ictericBILIRUBIN, [id number] 14:48:00* Test Item Value Reference Range Comments BILIRUBIN DIRECT (BEAKER) (test cipp=100) 3.4 mg/dL 0.1-0.5 PROTHROMBIN [id number] 14:17:00* Test Item Value Reference Range Comments PROTIME (BEAKER) (test zdrx=435) 24.8 seconds 11.7-14.7 INR (BEAKER) (test wibu=638) 2.2 <=5.9 RECOMMENDED COUMADIN/WARFARIN INR THERAPY RANGESSTANDARD DOSE: 2.0 - 3.0 Inclu abi: PROPHYLAXIS for venous thrombosis, systemic embolization; TREATMENT for fam ous thrombosis and/or pulmonary embolus.HIGH RISK: Target INR is 2.5-3.5 for pat ients with mechanical heart valves.CBC W/PLT COUNT & AUTO [id number] 14:01:00* Test Item Value Reference Range Comments WHITE BLOOD CELL COUNT (BEAKER) (test rfup=366) 6.5 K/ L 3.5-10.5 RED BLOOD CELL COUNT (BEAKER) (test qiqo=575) 2.98 M/ L 3.93-5.22 HEMOGLOBIN (BEAKER) (test qlcw=667) 9.0 GM/DL 11.2-15.7 HEMATOCRIT (BEAKER) (test lnkm=767) 28.7 % 34.1-44.9 MEAN CORPUSCULAR VOLUME (BEAKER) (test mtpe=182) 96.3 fL 79.4-94.8 MEAN CORPUSCULAR HEMOGLOBIN (BEAKER) (test fouy=139) 30.2 pg 25.6-32.2 MEAN CORPUSCULAR HEMOGLOBIN CONC (BEAKER) (test xgws=194) 31.4 GM/DL 32.2-35.5 RED CELL DISTRIBUTION WIDTH (BEAKER) (test zupl=803) 18.6 % 11.7-14.4 PLATELET COUNT (BEAKER) (test aqfo=508) 79 K/CU MM 150-450 MEAN PLATELET VOLUME (BEAKER) (test yhqa=618) 10.8 fL 9.4-12.3 NUCLEATED RED BLOOD CELLS (BEAKER) (test xwek=934) 0 /100 WBC 0-0 NEUTROPHILS RELATIVE PERCENT (BEAKER) (test gbgl=359) 55 % LYMPHOCYTES RELATIVE PERCENT (BEAKER) (test nazu=795) 32 % MONOCYTES RELATIVE PERCENT (BEAKER) (test qudt=913) 11 % EOSINOPHILS RELATIVE PERCENT (BEAKER) (test gzon=594) 2 % BASOPHILS RELATIVE PERCENT (BEAKER) (test yjqu=825) 1 % NEUTROPHILS ABSOLUTE COUNT (BEAKER) (test hegu=485) 3.58 K/ L 1.56-6.13 LYMPHOCYTES ABSOLUTE COUNT (BEAKER) (test fcwi=874) 2.08 K/ L 1.18-3.74 MONOCYTES ABSOLUTE COUNT (BEAKER) (test dvzl=540) 0.69 K/ L 0.24-0.36 EOSINOPHILS ABSOLUTE COUNT (BEAKER) (test sniu=819) 0.12 K/ L 0.04-0.36 BASOPHILS ABSOLUTE COUNT (BEAKER) (test umkt=817) 0.04 K/ L 0.01-0.08 IMMATURE GRANULOCYTES-RELATIVE PERCENT (BEAKER) (test dzvg=1192) 0 % 0-1 BLOOD [id number] 00:00:00* Test Item Value Reference Range Comments CULTURE (BEAKER) (test iwej=7016) No growth in 5 days BLOOD [id number] 18:00:00* Test Item Value Reference Range Comments CULTURE (BEAKER) (test fzcv=8967) No growth in 5 days BLOOD [id number] 07:06:00* Test Item Value Reference Range Comments CULTURE (BEAKER) (test iujj=2813) From Anaerobic Bottle Only Coagulase negative Staphylococcus GRAM STAIN RESULT (BEAKER) (test ouqz=8400) From anaerobic bottle only: gram positive cocci in clusters Coagulase Negative Staphylococcus Species (CoNS) DETECTED, Methicillin Resistant First line therapy: Vancomycin Coagulase Negative Staphylococcus (CoNS) DETECT EDmecA DETECTEDPossible contamination.The likelihood of pathogenicity is increas ed if the organism is observed in multiple blood cultures obtained from separate venipunctures. Other organisms and resistance markers not contained in this PCR panel cannot be excluded and follow-up of traditional culture results is requir ed. This sample was tested at the [facility] Clinical Microbiology Laboratory using the [employer] Blood Culture ID Panel. This test is FDA cleared for in vi tro diagnostic use and has been verified and approved by the [facility] Clinical Micr obiology laboratory for clinical use. Reference Range: Not DetectedBLOOD CULTURE 2017-10-09 11:00:00* Test Item Value Reference Range Comments CULTURE (BEAKER) (test rexv=9595) No growth in 5 days [id number] 07:47:00* Test Item Value Reference Range Comments PREALBUMIN (BEAKER) (test diux=490) 4 mg/dL 14-45 CALCIUM, [id number] 07:45:00* Test Item Value Reference Range Comments CALCIUM IONIZED (BEAKER) (test dyyg=059) 0.98 mmol/L 1.12-1.27 PH, BLOOD (BEAKER) (test mlrh=7127) 7.39 [id number] 07:36:00* Test Item Value Reference Range Comments PHOSPHORUS (BEAKER) (test tout=871) 3.7 mg/dL 2.3-4.7 [id number] 07:36:00* Test Item Value Reference Range Comments MAGNESIUM (BEAKER) (test oipr=537) 1.5 mg/dL 1.6-2.6 BASIC METABOLIC [id number] 07:36:00* Test Item Value Reference Range Comments SODIUM (BEAKER) (test ivfg=277) 136 meq/L 136-145 POTASSIUM (BEAKER) (test uzcj=251) 3.6 meq/L 3.5-5.1 CHLORIDE (BEAKER) (test ssjf=976) 104 meq/L 98-107 CO2 (BEAKER) (test qncx=409) 25 meq/L 22-29 BLOOD UREA NITROGEN (BEAKER) (test tteo=557) 10 mg/dL 7-21 CREATININE (BEAKER) (test mobn=646) 0.70 mg/dL 0.57-1.25 GLUCOSE RANDOM (BEAKER) (test fqyt=005) 86 mg/dL 70-105 CALCIUM (BEAKER) (test oauw=014) 8.0 mg/dL 8.4-10.2 EGFR (BEAKER) (test mweo=7391) 86 mL/min/1.73 sq m ESTIMATED GFR IS NOT ACCURATE CREATININE CLEARANCE IN PREDICTING GLOMERULAR FILTRATION RATE. ESTIMATED GFR IS NOT APPLICABLE FOR DIALYSIS PATIENTS. Specimen moderately ictericHEPATIC FUNCTION [id number] 07:36:00* Test Item Value Reference Range Comments TOTAL PROTEIN (BEAKER) (test eupr=269) 5.8 gm/dL 6.0-8.3 ALBUMIN (BEAKER) (test hdpr=3446) 2.5 g/dL 3.5-5.0 BILIRUBIN TOTAL (BEAKER) (test cija=141) 5.9 mg/dL 0.2-1.2 BILIRUBIN DIRECT (BEAKER) (test txev=571) 3.5 mg/dL 0.1-0.5 ALKALINE PHOSPHATASE (BEAKER) (test suvq=449) 180 U/L 40-150 AST (SGOT) (BEAKER) (test cuhe=004) 54 U/L 5-34 ALT (SGPT) (BEAKER) (test yjuv=366) 31 U/L 6-55 Specimen moderately ictericPROTHROMBIN [id number] 07:22:00* Test Item Value Reference Range Comments PROTIME (BEAKER) (test eybf=967) 24.3 seconds 11.7-14.7 INR (BEAKER) (test aiuu=403) 2.2 <=5.9 RECOMMENDED COUMADIN/WARFARIN INR THERAPY RANGESSTANDARD DOSE: 2.0 - 3.0 Inclu abi: PROPHYLAXIS for venous thrombosis, systemic embolization; TREATMENT for fam ous thrombosis and/or pulmonary embolus.HIGH RISK: Target INR is 2.5-3.5 for pat ients with mechanical heart valves.CBC W/PLT COUNT & AUTO [id number] 06:54:00* Test Item Value Reference Range Comments WHITE BLOOD CELL COUNT (BEAKER) (test gdjv=584) 5.5 K/ L 3.5-10.5 RED BLOOD CELL COUNT (BEAKER) (test bxap=430) 2.71 M/ L 3.93-5.22 HEMOGLOBIN (BEAKER) (test dthx=023) 8.5 GM/DL 11.2-15.7 HEMATOCRIT (BEAKER) (test jxyf=883) 26.7 % 34.1-44.9 MEAN CORPUSCULAR VOLUME (BEAKER) (test zepx=394) 98.5 fL 79.4-94.8 MEAN CORPUSCULAR HEMOGLOBIN (BEAKER) (test mcpj=011) 31.4 pg 25.6-32.2 MEAN CORPUSCULAR HEMOGLOBIN CONC (BEAKER) (test ctdb=410) 31.8 GM/DL 32.2-35.5 RED CELL DISTRIBUTION WIDTH (BEAKER) (test oloh=237) 18.3 % 11.7-14.4 PLATELET COUNT (BEAKER) (test dviu=309) 69 K/CU MM 150-450 MEAN PLATELET VOLUME (BEAKER) (test vfsu=319) 10.2 fL 9.4-12.3 NUCLEATED RED BLOOD CELLS (BEAKER) (test yqwt=356) 0 /100 WBC 0-0 NEUTROPHILS RELATIVE PERCENT (BEAKER) (test akkc=718) 52 % LYMPHOCYTES RELATIVE PERCENT (BEAKER) (test vhcg=245) 31 % MONOCYTES RELATIVE PERCENT (BEAKER) (test rieb=982) 12 % EOSINOPHILS RELATIVE PERCENT (BEAKER) (test kihe=228) 3 % BASOPHILS RELATIVE PERCENT (BEAKER) (test wiad=241) 1 % NEUTROPHILS ABSOLUTE COUNT (BEAKER) (test xloa=943) 2.90 K/ L 1.56-6.13 LYMPHOCYTES ABSOLUTE COUNT (BEAKER) (test kojj=409) 1.73 K/ L 1.18-3.74 MONOCYTES ABSOLUTE COUNT (BEAKER) (test vhqa=260) 0.66 K/ L 0.24-0.36 EOSINOPHILS ABSOLUTE COUNT (BEAKER) (test qqkc=386) 0.19 K/ L 0.04-0.36 BASOPHILS ABSOLUTE COUNT (BEAKER) (test kzzc=071) 0.04 K/ L 0.01-0.08 IMMATURE GRANULOCYTES-RELATIVE PERCENT (BEAKER) (test rdtj=1371) 0 % 0-1 HEMOGLOBIN AND [id number] 17:18:00* Test Item Value Reference Range Comments HEMOGLOBIN (BEAKER) (test gsbu=308) 7.6 GM/DL 11.2-15.7 HEMATOCRIT (BEAKER) (test kjcu=632) 23.5 % 34.1-44.9 [id number] 13:32:00* Test Item Value Reference Range Comments AMYLASE (BEAKER) (test qrlg=901) 34 U/L 25-125 Specimen moderately [id number] 13:32:00* Test Item Value Reference Range Comments LIPASE (BEAKER) (test hrhg=275) 34 U/L 8-78 Specimen moderately ictericCALCIUM, [id number] 07:23:00* Test Item Value Reference Range Comments CALCIUM IONIZED (BEAKER) (test wkgw=522) 0.99 mmol/L 1.12-1.27 PH, BLOOD (BEAKER) (test plaq=6362) 7.41 BASIC METABOLIC [id number] 05:38:00* Test Item Value Reference Range Comments SODIUM (BEAKER) (test pwrd=616) 136 meq/L 136-145 POTASSIUM (BEAKER) (test qwhz=522) 3.5 meq/L 3.5-5.1 CHLORIDE (BEAKER) (test xtah=165) 105 meq/L 98-107 CO2 (BEAKER) (test chny=558) 24 meq/L 22-29 BLOOD UREA NITROGEN (BEAKER) (test jpdn=418) 10 mg/dL 7-21 CREATININE (BEAKER) (test wtvg=149) 0.67 mg/dL 0.57-1.25 GLUCOSE RANDOM (BEAKER) (test nvvg=379) 98 mg/dL 70-105 CALCIUM (BEAKER) (test texu=999) 7.8 mg/dL 8.4-10.2 EGFR (BEAKER) (test biub=2304) 90 mL/min/1.73 sq m ESTIMATED GFR IS NOT ACCURATE CREATININE CLEARANCE IN PREDICTING GLOMERULAR FILTRATION RATE. ESTIMATED GFR IS NOT APPLICABLE FOR DIALYSIS PATIENTS. Specimen moderately [id number] 05:32:00* Test Item Value Reference Range Comments PHOSPHORUS (BEAKER) (test usdu=895) 3.4 mg/dL 2.3-4.7 [id number] 05:32:00* Test Item Value Reference Range Comments MAGNESIUM (BEAKER) (test uoxy=269) 1.6 mg/dL 1.6-2.6 HEPATIC FUNCTION [id number] 05:32:00* Test Item Value Reference Range Comments TOTAL PROTEIN (BEAKER) (test ybgw=031) 5.0 gm/dL 6.0-8.3 ALBUMIN (BEAKER) (test uttn=8739) 2.2 g/dL 3.5-5.0 BILIRUBIN TOTAL (BEAKER) (test wbfl=751) 6.3 mg/dL 0.2-1.2 BILIRUBIN DIRECT (BEAKER) (test lvhv=108) 3.1 mg/dL 0.1-0.5 ALKALINE PHOSPHATASE (BEAKER) (test vepu=459) 151 U/L 40-150 AST (SGOT) (BEAKER) (test pypp=752) 45 U/L 5-34 ALT (SGPT) (BEAKER) (test hzsc=484) 27 U/L 6-55 Specimen moderately ictericPROTHROMBIN TIME/[id number] 05:06:00* Test Item Value Reference Range Comments PROTIME (BEAKER) (test jcgk=002) 24.5 seconds 11.7-14.7 INR (BEAKER) (test kixk=241) 2.2 <=5.9 RECOMMENDED COUMADIN/WARFARIN INR THERAPY RANGESSTANDARD DOSE: 2.0 - 3.0 Inclu abi: PROPHYLAXIS for venous thrombosis, systemic embolization; TREATMENT for fam ous thrombosis and/or pulmonary embolus.HIGH RISK: Target INR is 2.5-3.5 for pat ients with mechanical heart valves.CBC W/PLT COUNT & AUTO [id number] 04:47:00* Test Item Value Reference Range Comments WHITE BLOOD CELL COUNT (BEAKER) (test hmju=798) 4.2 K/ L 3.5-10.5 RED BLOOD CELL COUNT (BEAKER) (test demv=417) 2.33 M/ L 3.93-5.22 HEMOGLOBIN (BEAKER) (test xsmi=233) 7.1 GM/DL 11.2-15.7 HEMATOCRIT (BEAKER) (test rogi=445) 23.0 % 34.1-44.9 MEAN CORPUSCULAR VOLUME (BEAKER) (test ehaj=717) 98.7 fL 79.4-94.8 MEAN CORPUSCULAR HEMOGLOBIN (BEAKER) (test wyve=778) 30.5 pg 25.6-32.2 MEAN CORPUSCULAR HEMOGLOBIN CONC (BEAKER) (test cxvi=718) 30.9 GM/DL 32.2-35.5 RED CELL DISTRIBUTION WIDTH (BEAKER) (test twwb=394) 18.4 % 11.7-14.4 PLATELET COUNT (BEAKER) (test zyqq=009) 63 K/CU MM 150-450 MEAN PLATELET VOLUME (BEAKER) (test yint=323) 10.4 fL 9.4-12.3 NUCLEATED RED BLOOD CELLS (BEAKER) (test qhan=791) 0 /100 WBC 0-0 NEUTROPHILS RELATIVE PERCENT (BEAKER) (test mvgw=723) 46 % LYMPHOCYTES RELATIVE PERCENT (BEAKER) (test onxx=844) 38 % MONOCYTES RELATIVE PERCENT (BEAKER) (test sium=354) 13 % EOSINOPHILS RELATIVE PERCENT (BEAKER) (test ualv=268) 3 % BASOPHILS RELATIVE PERCENT (BEAKER) (test jbzd=799) 1 % NEUTROPHILS ABSOLUTE COUNT (BEAKER) (test kknb=938) 1.92 K/ L 1.56-6.13 LYMPHOCYTES ABSOLUTE COUNT (BEAKER) (test jdia=142) 1.57 K/ L 1.18-3.74 MONOCYTES ABSOLUTE COUNT (BEAKER) (test fcsh=218) 0.54 K/ L 0.24-0.36 EOSINOPHILS ABSOLUTE COUNT (BEAKER) (test lebw=859) 0.11 K/ L 0.04-0.36 BASOPHILS ABSOLUTE COUNT (BEAKER) (test pxol=248) 0.03 K/ L 0.01-0.08 IMMATURE GRANULOCYTES-RELATIVE PERCENT (BEAKER) (test nvwh=1075) 0 % 0-1 HEPATIC FUNCTION [id number] 09:23:00* Test Item Value Reference Range Comments TOTAL PROTEIN (BEAKER) (test hbvo=789) 6.0 gm/dL 6.0-8.3 ALBUMIN (BEAKER) (test gbjk=8696) 2.7 g/dL 3.5-5.0 BILIRUBIN TOTAL (BEAKER) (test ltzu=593) 7.3 mg/dL 0.2-1.2 BILIRUBIN DIRECT (BEAKER) (test odnb=154) 3.9 mg/dL 0.1-0.5 ALKALINE PHOSPHATASE (BEAKER) (test jadd=922) 182 U/L 40-150 AST (SGOT) (BEAKER) (test yeri=424) 50 U/L 5-34 ALT (SGPT) (BEAKER) (test wgmg=744) 32 U/L 6-55 Specimen moderately [id number] 07:22:00* Test Item Value Reference Range Comments PHOSPHORUS (BEAKER) (test viku=392) 4.9 mg/dL 2.3-4.7 [id number] 07:22:00* Test Item Value Reference Range Comments MAGNESIUM (BEAKER) (test fich=225) 1.4 mg/dL 1.6-2.6 BASIC METABOLIC [id number] 07:22:00* Test Item Value Reference Range Comments SODIUM (BEAKER) (test shox=173) 135 meq/L 136-145 POTASSIUM (BEAKER) (test smth=379) 4.3 meq/L 3.5-5.1 CHLORIDE (BEAKER) (test lnsd=847) 105 meq/L 98-107 CO2 (BEAKER) (test pcox=121) 23 meq/L 22-29 BLOOD UREA NITROGEN (BEAKER) (test iwqz=421) 14 mg/dL 7-21 CREATININE (BEAKER) (test qhmq=528) 0.76 mg/dL 0.57-1.25 GLUCOSE RANDOM (BEAKER) (test qeiy=476) 105 mg/dL 70-105 CALCIUM (BEAKER) (test riao=470) 8.3 mg/dL 8.4-10.2 EGFR (BEAKER) (test ypon=8157) 78 mL/min/1.73 sq m ESTIMATED GFR IS NOT ACCURATE CREATININE CLEARANCE IN PREDICTING GLOMERULAR FILTRATION RATE. ESTIMATED GFR IS NOT APPLICABLE FOR DIALYSIS PATIENTS. Specimen moderately ictericCALCIUM, [id number] 07:08:00* Test Item Value Reference Range Comments CALCIUM IONIZED (BEAKER) (test gddt=553) 1.01 mmol/L 1.12-1.27 PH, BLOOD (BEAKER) (test yywz=3591) 7.37 PROTHROMBIN [id number] 07:01:00* Test Item Value Reference Range Comments PROTIME (BEAKER) (test pefr=259) 23.3 seconds 11.7-14.7 INR (BEAKER) (test ejba=057) 2.1 <=5.9 RECOMMENDED COUMADIN/WARFARIN INR THERAPY RANGESSTANDARD DOSE: 2.0 - 3.0 Inclu abi: PROPHYLAXIS for venous thrombosis, systemic embolization; TREATMENT for fam ous thrombosis and/or pulmonary embolus.HIGH RISK: Target INR is 2.5-3.5 for pat ients with mechanical heart valves.CBC W/PLT COUNT & AUTO [id number] 06:45:00* Test Item Value Reference Range Comments WHITE BLOOD CELL COUNT (BEAKER) (test hbaq=891) 7.3 K/ L 3.5-10.5 RED BLOOD CELL COUNT (BEAKER) (test aclu=100) 2.55 M/ L 3.93-5.22 HEMOGLOBIN (BEAKER) (test qasb=807) 8.0 GM/DL 11.2-15.7 HEMATOCRIT (BEAKER) (test elmm=677) 25.3 % 34.1-44.9 MEAN CORPUSCULAR VOLUME (BEAKER) (test jmhv=228) 99.2 fL 79.4-94.8 MEAN CORPUSCULAR HEMOGLOBIN (BEAKER) (test wonf=659) 31.4 pg 25.6-32.2 MEAN CORPUSCULAR HEMOGLOBIN CONC (BEAKER) (test jpcv=885) 31.6 GM/DL 32.2-35.5 RED CELL DISTRIBUTION WIDTH (BEAKER) (test krtg=354) 18.2 % 11.7-14.4 PLATELET COUNT (BEAKER) (test phxi=087) 83 K/CU MM 150-450 MEAN PLATELET VOLUME (BEAKER) (test cidr=576) 11.2 fL 9.4-12.3 NUCLEATED RED BLOOD CELLS (BEAKER) (test ttge=496) 0 /100 WBC 0-0 NEUTROPHILS RELATIVE PERCENT (BEAKER) (test qoet=105) 68 % LYMPHOCYTES RELATIVE PERCENT (BEAKER) (test uhaa=739) 20 % MONOCYTES RELATIVE PERCENT (BEAKER) (test kbol=262) 9 % EOSINOPHILS RELATIVE PERCENT (BEAKER) (test zsmm=968) 1 % BASOPHILS RELATIVE PERCENT (BEAKER) (test hqte=454) 1 % NEUTROPHILS ABSOLUTE COUNT (BEAKER) (test etwf=616) 4.96 K/ L 1.56-6.13 LYMPHOCYTES ABSOLUTE COUNT (BEAKER) (test hepz=018) 1.48 K/ L 1.18-3.74 MONOCYTES ABSOLUTE COUNT (BEAKER) (test xbxt=226) 0.68 K/ L 0.24-0.36 EOSINOPHILS ABSOLUTE COUNT (BEAKER) (test wvux=621) 0.08 K/ L 0.04-0.36 BASOPHILS ABSOLUTE COUNT (BEAKER) (test kvyh=286) 0.04 K/ L 0.01-0.08 IMMATURE GRANULOCYTES-RELATIVE PERCENT (BEAKER) (test pdtf=2354) 0 % 0-1 [id number] 18:36:00* Test Item Value Reference Range Comments LIPASE (BEAKER) (test qjoz=673) 116 U/L 8-78 Specimen moderately ictericMISCELLANEOUS LAB [id number] 07:28:00* Test Item Value Reference Range Comments SCAN RESULT (test dgqf=[id number]) Result comments: 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 Other organisms and resistance markers not contained in this PCR panel cannot be excluded and follow-up of traditional cul ture results is required. This sample was tested at the [facility] Clinical Microbi ology Laboratory using the [employer] Blood Culture ID Panel. This test i s FDA cleared for in vitro diagnostic use and has been verified and approved by the [facility] Clinical Microbiology laboratory for clinical use. Reference Range: No t [id number] 07:00:00* Test Item Value Reference Range Comments MAGNESIUM (BEAKER) (test wlsv=406) 1.7 mg/dL 1.6-2.6 BASIC METABOLIC [id number] 07:00:00* Test Item Value Reference Range Comments SODIUM (BEAKER) (test qljs=304) 136 meq/L 136-145 POTASSIUM (BEAKER) (test jwdx=532) 4.6 meq/L 3.5-5.1 CHLORIDE (BEAKER) (test pwbc=030) 110 meq/L 98-107 CO2 (BEAKER) (test fbgu=180) 20 meq/L 22-29 BLOOD UREA NITROGEN (BEAKER) (test pskd=064) 15 mg/dL 7-21 CREATININE (BEAKER) (test htku=477) 0.70 mg/dL 0.57-1.25 GLUCOSE RANDOM (BEAKER) (test opma=326) 88 mg/dL 70-105 CALCIUM (BEAKER) (test pwhw=851) 8.6 mg/dL 8.4-10.2 EGFR (BEAKER) (test juep=0557) 86 mL/min/1.73 sq m ESTIMATED GFR IS NOT ACCURATE CREATININE CLEARANCE IN PREDICTING GLOMERULAR FILTRATION RATE. ESTIMATED GFR IS NOT APPLICABLE FOR DIALYSIS PATIENTS. Specimen moderately ictericHEPATIC FUNCTION [id number] 07:00:00* Test Item Value Reference Range Comments TOTAL PROTEIN (BEAKER) (test amnl=281) 5.3 gm/dL 6.0-8.3 ALBUMIN (BEAKER) (test iuuj=8917) 2.4 g/dL 3.5-5.0 BILIRUBIN TOTAL (BEAKER) (test gqle=425) 6.5 mg/dL 0.2-1.2 BILIRUBIN DIRECT (BEAKER) (test cebh=392) 3.3 mg/dL 0.1-0.5 ALKALINE PHOSPHATASE (BEAKER) (test wbim=142) 168 U/L 40-150 AST (SGOT) (BEAKER) (test larf=967) 50 U/L 5-34 ALT (SGPT) (BEAKER) (test vbwy=415) 31 U/L 6-55 Specimen moderately ictericCBC W/PLT COUNT & AUTO [id number] 06:13:00* Test Item Value Reference Range Comments WHITE BLOOD CELL COUNT (BEAKER) (test naur=134) 4.3 K/ L 3.5-10.5 RED BLOOD CELL COUNT (BEAKER) (test covv=037) 2.27 M/ L 3.93-5.22 HEMOGLOBIN (BEAKER) (test bwzo=698) 7.1 GM/DL 11.2-15.7 HEMATOCRIT (BEAKER) (test wcwe=082) 22.5 % 34.1-44.9 MEAN CORPUSCULAR VOLUME (BEAKER) (test yovc=201) 99.1 fL 79.4-94.8 MEAN CORPUSCULAR HEMOGLOBIN (BEAKER) (test usiy=998) 31.3 pg 25.6-32.2 MEAN CORPUSCULAR HEMOGLOBIN CONC (BEAKER) (test rrys=679) 31.6 GM/DL 32.2-35.5 RED CELL DISTRIBUTION WIDTH (BEAKER) (test iulp=817) 17.2 % 11.7-14.4 PLATELET COUNT (BEAKER) (test syts=302) 72 K/CU MM 150-450 MEAN PLATELET VOLUME (BEAKER) (test eska=008) 11.3 fL 9.4-12.3 NUCLEATED RED BLOOD CELLS (BEAKER) (test nsfw=799) 0 /100 WBC 0-0 NEUTROPHILS RELATIVE PERCENT (BEAKER) (test ewgx=652) 56 % LYMPHOCYTES RELATIVE PERCENT (BEAKER) (test kvcp=303) 31 % MONOCYTES RELATIVE PERCENT (BEAKER) (test yfkc=410) 10 % EOSINOPHILS RELATIVE PERCENT (BEAKER) (test dxwx=018) 1 % BASOPHILS RELATIVE PERCENT (BEAKER) (test vzfl=014) 1 % NEUTROPHILS ABSOLUTE COUNT (BEAKER) (test ssud=269) 2.42 K/ L 1.56-6.13 LYMPHOCYTES ABSOLUTE COUNT (BEAKER) (test ycep=950) 1.36 K/ L 1.18-3.74 MONOCYTES ABSOLUTE COUNT (BEAKER) (test skeg=045) 0.45 K/ L 0.24-0.36 EOSINOPHILS ABSOLUTE COUNT (BEAKER) (test zxly=835) 0.06 K/ L 0.04-0.36 BASOPHILS ABSOLUTE COUNT (BEAKER) (test gvoh=870) 0.02 K/ L 0.01-0.08 IMMATURE GRANULOCYTES-RELATIVE PERCENT (BEAKER) (test iove=9272) 1 % 0-1 PROTHROMBIN TIME/[id number] 06:11:00* Test Item Value Reference Range Comments PROTIME (BEAKER) (test syyo=970) 21.8 seconds 11.7-14.7 INR (BEAKER) (test kvyu=275) 1.9 <=5.9 RECOMMENDED COUMADIN/WARFARIN INR THERAPY RANGESSTANDARD DOSE: 2.0 - 3.0 Inclu abi: PROPHYLAXIS for venous thrombosis, systemic embolization; TREATMENT for fam ous thrombosis and/or pulmonary embolus.HIGH RISK: Target INR is 2.5-3.5 for pat ients with mechanical heart valves.SC, [id number] 15:00:00Referring: self referral per patientINTRA OP IMAGINGReason for exam:->BILIARY OBSTRUCTIONFINAL REPORT ERCP HISTORY: Biliary obstruction COMPARISON: MRI abdomen of 10/03/2017 FINDINGS: C-arm fluoroscopy was provided for endoscopy. No radiologist was present. Fluoroscopy time was reported as 5 minutes 10 seconds. 20 images were submitted for interpretation. The images initially show can nulation of the pancreatic duct, with retrograde injection of contrast in the pa ncreatic duct. There is subsequent placement of a pancreatic duct stent, with dr ribera of the pancreatic duct contrast. Subsequently, there is cannulation of th e common bile duct. After the retrograde injection of contrast into the common b ile duct, there is subsequent placement of a common bile duct stent, with eventu al drainage of contrast from the common bile duct. Signed: Kellie Maedows MDReport Verified Date/Time: 10/05/2017 15:00:03 Reading Location: [address] ional Reading Room 18 03:00 PM URINE [id number] 10:56:00* Test Item Value Reference Range Comments CULTURE (BEAKER) (test pxhz=1356) >100,000 col/mL skin kristi CALCIUM, [id number] 05:18:00* Test Item Value Reference Range Comments CALCIUM IONIZED (BEAKER) (test tvng=644) 1.06 mmol/L 1.12-1.27 PH, BLOOD (BEAKER) (test dvaq=1927) 7.40 BASIC METABOLIC [id number] 04:29:00* Test Item Value Reference Range Comments SODIUM (BEAKER) (test emnh=760) 137 meq/L 136-145 POTASSIUM (BEAKER) (test ffvq=427) 4.3 meq/L 3.5-5.1 CHLORIDE (BEAKER) (test hfqq=075) 111 meq/L 98-107 CO2 (BEAKER) (test mugy=510) 21 meq/L 22-29 BLOOD UREA NITROGEN (BEAKER) (test ywcb=557) 10 mg/dL 7-21 CREATININE (BEAKER) (test dywq=430) 0.61 mg/dL 0.57-1.25 GLUCOSE RANDOM (BEAKER) (test chtj=300) 81 mg/dL 70-105 CALCIUM (BEAKER) (test ppmk=288) 8.1 mg/dL 8.4-10.2 EGFR (BEAKER) (test udow=9614) 101 mL/min/1.73 sq m ESTIMATED GFR IS NOT ACCURATE CREATININE CLEARANCE IN PREDICTING GLOMERULAR FILTRATION RATE. ESTIMATED GFR IS NOT APPLICABLE FOR DIALYSIS PATIENTS. Specimen moderately [id number] 04:18:00* Test Item Value Reference Range Comments PHOSPHORUS (BEAKER) (test bmgu=105) 3.5 mg/dL 2.3-4.7 [id number] 04:18:00* Test Item Value Reference Range Comments MAGNESIUM (BEAKER) (test osxt=328) 1.3 mg/dL 1.6-2.6 HEPATIC FUNCTION [id number] 04:18:00* Test Item Value Reference Range Comments TOTAL PROTEIN (BEAKER) (test oimu=975) 5.0 gm/dL 6.0-8.3 ALBUMIN (BEAKER) (test rlgj=6054) 2.1 g/dL 3.5-5.0 BILIRUBIN TOTAL (BEAKER) (test dztv=549) 7.1 mg/dL 0.2-1.2 BILIRUBIN DIRECT (BEAKER) (test zrlr=935) 3.9 mg/dL 0.1-0.5 ALKALINE PHOSPHATASE (BEAKER) (test twph=747) 180 U/L 40-150 AST (SGOT) (BEAKER) (test msjy=141) 46 U/L 5-34 ALT (SGPT) (BEAKER) (test vnfr=941) 28 U/L 6-55 Specimen moderately ictericPROTHROMBIN TIME/[id number] 03:56:00* Test Item Value Reference Range Comments PROTIME (BEAKER) (test cpha=475) 24.4 seconds 11.7-14.7 INR (BEAKER) (test deyw=935) 2.2 <=5.9 RECOMMENDED COUMADIN/WARFARIN INR THERAPY RANGESSTANDARD DOSE: 2.0 - 3.0 Inclu abi: PROPHYLAXIS for venous thrombosis, systemic embolization; TREATMENT for fam ous thrombosis and/or pulmonary embolus.HIGH RISK: Target INR is 2.5-3.5 for pat ients with mechanical heart valves.CBC W/PLT COUNT & AUTO [id number] 03:48:00* Test Item Value Reference Range Comments WHITE BLOOD CELL COUNT (BEAKER) (test xjxs=774) 5.5 K/ L 3.5-10.5 RED BLOOD CELL COUNT (BEAKER) (test hwzl=441) 2.64 M/ L 3.93-5.22 HEMOGLOBIN (BEAKER) (test glpf=366) 8.0 GM/DL 11.2-15.7 HEMATOCRIT (BEAKER) (test kwes=839) 25.4 % 34.1-44.9 MEAN CORPUSCULAR VOLUME (BEAKER) (test geoc=187) 96.2 fL 79.4-94.8 MEAN CORPUSCULAR HEMOGLOBIN (BEAKER) (test lydf=962) 30.3 pg 25.6-32.2 MEAN CORPUSCULAR HEMOGLOBIN CONC (BEAKER) (test mjcr=958) 31.5 GM/DL 32.2-35.5 RED CELL DISTRIBUTION WIDTH (BEAKER) (test xmgw=407) 17.7 % 11.7-14.4 PLATELET COUNT (BEAKER) (test bhkg=522) 60 K/CU MM 150-450 MEAN PLATELET VOLUME (BEAKER) (test rozq=771) 10.5 fL 9.4-12.3 NUCLEATED RED BLOOD CELLS (BEAKER) (test sqyj=300) 0 /100 WBC 0-0 NEUTROPHILS RELATIVE PERCENT (BEAKER) (test bbfs=419) 50 % LYMPHOCYTES RELATIVE PERCENT (BEAKER) (test rter=335) 36 % MONOCYTES RELATIVE PERCENT (BEAKER) (test fktb=852) 10 % EOSINOPHILS RELATIVE PERCENT (BEAKER) (test rtkz=952) 3 % BASOPHILS RELATIVE PERCENT (BEAKER) (test xafp=076) 1 % NEUTROPHILS ABSOLUTE COUNT (BEAKER) (test dtjp=774) 2.76 K/ L 1.56-6.13 LYMPHOCYTES ABSOLUTE COUNT (BEAKER) (test wpkf=627) 1.97 K/ L 1.18-3.74 MONOCYTES ABSOLUTE COUNT (BEAKER) (test bale=016) 0.55 K/ L 0.24-0.36 EOSINOPHILS ABSOLUTE COUNT (BEAKER) (test dusr=638) 0.15 K/ L 0.04-0.36 BASOPHILS ABSOLUTE COUNT (BEAKER) (test qvaq=250) 0.05 K/ L 0.01-0.08 IMMATURE GRANULOCYTES-RELATIVE PERCENT (BEAKER) (test nsqb=1150) 0 % 0-1 OSMOLALITY, [id number] 14:47:00* Test Item Value Reference Range Comments OSMOLALITY URINE (BEAKER) (test eiqw=992) 492 mOsm/kg 40-1400 OSMOLALITY, [id number] 13:07:00* Test Item Value Reference Range Comments OSMOLALITY, SERUM (BEAKER) (test qfxu=195) 285 mOsm/kg 275-295 CHLORIDE, RANDOM [id number] 12:40:00* Test Item Value Reference Range Comments CHLORIDE URINE (BEAKER) (test hflf=176) 51 meq/L Reference Range: No NormalsPOTASSIUM, RANDOM [id number] 12:40:00* Test Item Value Reference Range Comments POTASSIUM URINE (BEAKER) (test xapo=684) 41.4 meq/L Reference Range: No NormalsSODIUM, RANDOM [id number] 12:40:00* Test Item Value Reference Range Comments SODIUM URINE (BEAKER) (test aqdl=477) 77 meq/L Reference Range: No NormalsTSH/FREE T4 IF [id number] 11:58:00* Test Item Value Reference Range Comments THYROID STIMULATING HORMONE (BEAKER) (test zkju=159) 2.44 uIU/mL 0.35-4.94 BASIC METABOLIC [id number] 05:12:00* Test Item Value Reference Range Comments SODIUM (BEAKER) (test dwjo=409) 126 meq/L 136-145 POTASSIUM (BEAKER) (test fpul=054) 4.0 meq/L 3.5-5.1 CHLORIDE (BEAKER) (test eagg=152) 102 meq/L 98-107 CO2 (BEAKER) (test cxep=901) 22 meq/L 22-29 BLOOD UREA NITROGEN (BEAKER) (test xbif=556) 12 mg/dL 7-21 CREATININE (BEAKER) (test acyi=728) 0.70 mg/dL 0.57-1.25 GLUCOSE RANDOM (BEAKER) (test vrjq=636) 108 mg/dL 70-105 CALCIUM (BEAKER) (test aamp=902) 8.0 mg/dL 8.4-10.2 EGFR (BEAKER) (test eapr=9302) 86 mL/min/1.73 sq m ESTIMATED GFR IS NOT ACCURATE CREATININE CLEARANCE IN PREDICTING GLOMERULAR FILTRATION RATE. ESTIMATED GFR IS NOT APPLICABLE FOR DIALYSIS PATIENTS. Specimen moderately ictericHEPATIC FUNCTION [id number] 04:50:00* Test Item Value Reference Range Comments TOTAL PROTEIN (BEAKER) (test sbci=305) 4.2 gm/dL 6.0-8.3 ALBUMIN (BEAKER) (test govf=3820) 2.1 g/dL 3.5-5.0 BILIRUBIN TOTAL (BEAKER) (test pxoo=569) 8.4 mg/dL 0.2-1.2 BILIRUBIN DIRECT (BEAKER) (test xhpu=330) 4.0 mg/dL 0.1-0.5 ALKALINE PHOSPHATASE (BEAKER) (test xtyi=708) 187 U/L 40-150 AST (SGOT) (BEAKER) (test frkj=555) 49 U/L 5-34 ALT (SGPT) (BEAKER) (test gtsp=893) 30 U/L 6-55 Specimen moderately ictericPROTHROMBIN [id number] 04:32:00* Test Item Value Reference Range Comments PROTIME (BEAKER) (test lcbm=484) 26.2 seconds 11.7-14.7 INR (BEAKER) (test whqa=594) 2.4 <=5.9 RECOMMENDED COUMADIN/WARFARIN INR THERAPY RANGESSTANDARD DOSE: 2.0 - 3.0 Inclu abi: PROPHYLAXIS for venous thrombosis, systemic embolization; TREATMENT for fam ous thrombosis and/or pulmonary embolus.HIGH RISK: Target INR is 2.5-3.5 for pat ients with mechanical heart valves.CBC W/PLT COUNT & AUTO [id number] 04:27:00* Test Item Value Reference Range Comments WHITE BLOOD CELL COUNT (BEAKER) (test bayb=742) 5.0 K/ L 3.5-10.5 RED BLOOD CELL COUNT (BEAKER) (test urhm=275) 2.48 M/ L 3.93-5.22 HEMOGLOBIN (BEAKER) (test yzbs=743) 7.6 GM/DL 11.2-15.7 HEMATOCRIT (BEAKER) (test sqer=389) 23.7 % 34.1-44.9 MEAN CORPUSCULAR VOLUME (BEAKER) (test acqb=172) 95.6 fL 79.4-94.8 MEAN CORPUSCULAR HEMOGLOBIN (BEAKER) (test fqcn=665) 30.6 pg 25.6-32.2 MEAN CORPUSCULAR HEMOGLOBIN CONC (BEAKER) (test vqux=301) 32.1 GM/DL 32.2-35.5 RED CELL DISTRIBUTION WIDTH (BEAKER) (test pgbx=849) 17.2 % 11.7-14.4 PLATELET COUNT (BEAKER) (test fzsk=885) 56 K/CU MM 150-450 MEAN PLATELET VOLUME (BEAKER) (test qypa=915) 11.5 fL 9.4-12.3 NUCLEATED RED BLOOD CELLS (BEAKER) (test kbpc=319) 0 /100 WBC 0-0 NEUTROPHILS RELATIVE PERCENT (BEAKER) (test krsu=965) 58 % LYMPHOCYTES RELATIVE PERCENT (BEAKER) (test rptv=250) 28 % MONOCYTES RELATIVE PERCENT (BEAKER) (test zbyb=361) 12 % EOSINOPHILS RELATIVE PERCENT (BEAKER) (test pwuz=704) 1 % BASOPHILS RELATIVE PERCENT (BEAKER) (test edaq=159) 0 % NEUTROPHILS ABSOLUTE COUNT (BEAKER) (test ihgx=645) 2.85 K/ L 1.56-6.13 LYMPHOCYTES ABSOLUTE COUNT (BEAKER) (test tdcl=559) 1.40 K/ L 1.18-3.74 MONOCYTES ABSOLUTE COUNT (BEAKER) (test kskj=917) 0.61 K/ L 0.24-0.36 EOSINOPHILS ABSOLUTE COUNT (BEAKER) (test evfw=661) 0.05 K/ L 0.04-0.36 BASOPHILS ABSOLUTE COUNT (BEAKER) (test ocno=403) 0.02 K/ L 0.01-0.08 IMMATURE GRANULOCYTES-RELATIVE PERCENT (BEAKER) (test wjja=2277) 0 % 0-1 MR, ABDOMEN, [id number] 21:33:00Referring: self referral per patientFINAL REPORT MR abdomen without contrast, MRCP protocol. INDICATION: Abnormal liver function tests (LFTs) COMPARISON: CT from 06/18/2017 a nd ultrasound from 10/03/2017 TECHNIQUE: Multiplanar multisequence imaging of the abdomen was performed without contrast. Subsequently to the MRI, three dimensio nal reconstructions of the hepatobiliary system were generated on an independent workstation for optimal visualization of the hepatobiliary anatomy and patholog y. FINDINGS: The gallbladder is distended containing small stones. There is a sm all amount of pericholecystic fluid and gallbladder wall edema. There is intrahe patic and extrahepatic biliary dilatation with the common bile duct measuring up to 10 mm. There is tapering of the common bile duct in its intrapancreatic port ion but no definite intraluminal filling defect is visualized. There is no pancr eatic ductal dilatation. Small subcentimeter cystic foci are seen in the pancrea s measuring up to 5 mm in the pancreatic body as well as multiple T2 hyperintens e lesions in the pancreatic head and uncinate process measuring up to 1.2 cm, tello ggestive of multifocal IPMN's, for which further definitive characterization can be performed with contrast-enhanced MRI examination. The liver demonstrates cir rhotic morphology. There is a subcentimeter T2 hyperintense lesion in the liver, too small to characterize. There is a TIPS shunt in position. The spleen is enl arged. The adrenal glands and kidneys are unremarkable. There is no significant ascites. There is no bowel obstruction. There is no lymphadenopathy. There is no fluid collection or hematoma. The osseous structures are intact. IMPRESSION:1. Distended gallbladder containing small stones with associated small amount of pe richolecystic fluid and gallbladder wall edema.2. Associated intrahepatic and ex tra hepatic biliary dilatation with the CBD measuring 10 mm and tapering of the CBD distally. Although no definite intraluminal filling defect is visualized, a distal obstructing process is suspected. Suggest correlation with ERCP or nuclea r medicine scan.3. Small T2 hyperintense lesions in the pancreas, suggestive of IPMN's which can be more definitively characterized with follow-up MRI with cont rast.4. Cirrhotic liver with a TIPS shunt in position. Signed: Wil Wu MDRepo rt Verified Date/Time: 10/03/2017 21:33:46 Reading Location: [address] Ortho Consult Reading Room Electronically signed by: WIL WU M.D. on 10/03 09:33 PM U/S, ABDOMINAL, [id number] 04:31:00Referring: self referral per patientAbdomen limited area? Add comment if clarification is needed.->Gall BladderReason for exam:->ABDOMINAL PAINFINAL REPORT INDICATION: ABDOMINAL PAIN COMPARISON: None TECHNIQUE: Real-time transabdominal salamanca scale and color Doppler ultrasound of the abdominal right upper quadrant. FINDINGS:Liver: Size: 14.8cm. Echogenicity: Normal. Masses/lesions: None. Surface Nodularity: None. Intrahepatic bile ducts: Normal. Common bile duct: 1.0cm. MPV: 1.3cm. Incidental note of TIPS. Gross patency is present. Gallbladder: Stones: Present. Sludge: None. Wall thickness: 0.3 cm. The gallbladder is distended to a maximal transverse diameter 5.5 cm. Pericholecystic fluid: None. Sonographic Haywood's sign: Absent. Pancreas: Head and uncinate process: Un remarkable. Body and tail: Not well-seen. Right kidney: Size: 11.2 x 5 .4 x 6.3 cm. Parenchyma: Normal echogenicity. No cysts. No stones. [place] nephrosis: None. Ascites: None. Regional Vasculature: The visible abdominal aort a, IVC and hepatic veins are patent. Additional Findings: None. IMPRESSION: Di stended gallbladder without secondary signs of distal obstruction or cholecystit is. MRCP or ERCP may be obtained for additional characterization as clinically w arranted. Grossly patent TIPS. Signed: JR Barakat Robert MDReport Verifsreekanth castanon Date/Time: 10/03/2017 04:31:23 Reading Location: [address] Body Reading Room ALYSIS W/ REFLEX URINE [id number] 23:59:00* Test Item Value Reference Range Comments COLOR (BEAKER) (test phky=877) [place] CLARITY (BEAKER) (test iphl=545) Hazy SPECIFIC GRAVITY UA (BEAKER) (test dmsp=961) 1.027 1.001-1.035 PH UA (BEAKER) (test jcxi=668) 6.0 5.0-8.0 PROTEIN UA (BEAKER) (test stbi=594) 20 mg/dL Negative GLUCOSE UA (BEAKER) (test csrc=311) Negative Negative KETONES UA (BEAKER) (test heen=314) Negative Negative BILIRUBIN UA (BEAKER) (test juos=350) Positive Negative BLOOD UA (BEAKER) (test qqxp=221) Trace Negative NITRITE UA (BEAKER) (test gunv=334) Negative Negative LEUKOCYTE ESTERASE UA (BEAKER) (test wnvj=501) Negative Negative UROBILINOGEN UA (BEAKER) (test aqps=515) 4.0 mg/dL 0.2-1.0 RBC UA (BEAKER) (test uyhy=345) 2 /HPF WBC UA (BEAKER) (test fual=311) 2 /HPF BACTERIA (BEAKER) (test xrhn=487) Rare MUCUS (BEAKER) (test ctou=4099) Few SQUAMOUS EPITHELIAL (BEAKER) (test mrfo=869) 4 /HPF CASTS (BEAKER) (test zoay=4445) 2 /LPF CRYSTALS, URINE (BEAKER) (test ysbv=4950) Moderate SOURCE(BEAKER) (test wiqk=4370) BASIC METABOLIC [id number] 22:18:00* Test Item Value Reference Range Comments SODIUM (BEAKER) (test iubq=701) 137 meq/L 136-145 POTASSIUM (BEAKER) (test rrzn=914) 4.2 meq/L 3.5-5.1 CHLORIDE (BEAKER) (test asel=803) 107 meq/L 98-107 CO2 (BEAKER) (test csbc=035) 22 meq/L 22-29 BLOOD UREA NITROGEN (BEAKER) (test jsdj=176) 17 mg/dL 7-21 CREATININE (BEAKER) (test arxe=925) 0.75 mg/dL 0.57-1.25 GLUCOSE RANDOM (BEAKER) (test hucz=504) 127 mg/dL 70-105 CALCIUM (BEAKER) (test mnzq=521) 8.2 mg/dL 8.4-10.2 EGFR (BEAKER) (test kkks=1760) 79 mL/min/1.73 sq m ESTIMATED GFR IS NOT ACCURATE CREATININE CLEARANCE IN PREDICTING GLOMERULAR FILTRATION RATE. ESTIMATED GFR IS NOT APPLICABLE FOR DIALYSIS PATIENTS. Specimen moderately ictericHEPATIC FUNCTION [id number] 22:18:00* Test Item Value Reference Range Comments TOTAL PROTEIN (BEAKER) (test ngfk=371) 5.6 gm/dL 6.0-8.3 ALBUMIN (BEAKER) (test yred=2766) 2.4 g/dL 3.5-5.0 BILIRUBIN TOTAL (BEAKER) (test qtgt=539) 8.4 mg/dL 0.2-1.2 BILIRUBIN DIRECT (BEAKER) (test sirj=298) 3.9 mg/dL 0.1-0.5 ALKALINE PHOSPHATASE (BEAKER) (test ulhg=452) 205 U/L 40-150 AST (SGOT) (BEAKER) (test onbo=870) 47 U/L 5-34 ALT (SGPT) (BEAKER) (test hkzv=144) 30 U/L 6-55 Specimen moderately [id number] 22:18:00* Test Item Value Reference Range Comments LIPASE (BEAKER) (test tlof=364) 55 U/L 8-78 Specimen moderately [id number] 22:08:00* Test Item Value Reference Range Comments PARTIAL THROMBOPLASTIN TIME (BEAKER) (test xgxe=794) 45.2 seconds 22.5-36.0 PROTHROMBIN [id number] 22:07:00* Test Item Value Reference Range Comments PROTIME (BEAKER) (test wvhl=119) 23.6 seconds 11.7-14.7 INR (BEAKER) (test vihf=323) 2.1 <=5.9 RECOMMENDED COUMADIN/WARFARIN INR THERAPY RANGESSTANDARD DOSE: 2.0 - 3.0 Inclu abi: PROPHYLAXIS for venous thrombosis, systemic embolization; TREATMENT for fam ous thrombosis and/or pulmonary embolus.HIGH RISK: Target INR is 2.5-3.5 for pat ients with mechanical heart valves.CBC W/PLT COUNT & AUTO [id number] 21:55:00* Test Item Value Reference Range Comments WHITE BLOOD CELL COUNT (BEAKER) (test wqrg=291) 7.6 K/ L 3.5-10.5 RED BLOOD CELL COUNT (BEAKER) (test clhz=377) 2.80 M/ L 3.93-5.22 HEMOGLOBIN (BEAKER) (test bqtw=575) 8.7 GM/DL 11.2-15.7 HEMATOCRIT (BEAKER) (test hayt=437) 26.8 % 34.1-44.9 MEAN CORPUSCULAR VOLUME (BEAKER) (test bgnn=453) 95.7 fL 79.4-94.8 MEAN CORPUSCULAR HEMOGLOBIN (BEAKER) (test jmyq=778) 31.1 pg 25.6-32.2 MEAN CORPUSCULAR HEMOGLOBIN CONC (BEAKER) (test inby=956) 32.5 GM/DL 32.2-35.5 RED CELL DISTRIBUTION WIDTH (BEAKER) (test agpx=004) 17.2 % 11.7-14.4 PLATELET COUNT (BEAKER) (test yuzd=419) 56 K/CU MM 150-450 MEAN PLATELET VOLUME (BEAKER) (test gads=258) 10.0 fL 9.4-12.3 NUCLEATED RED BLOOD CELLS (BEAKER) (test yjuy=217) 0 /100 WBC 0-0 NEUTROPHILS RELATIVE PERCENT (BEAKER) (test nopz=656) 65 % LYMPHOCYTES RELATIVE PERCENT (BEAKER) (test rcjk=786) 26 % MONOCYTES RELATIVE PERCENT (BEAKER) (test mlyl=141) 7 % EOSINOPHILS RELATIVE PERCENT (BEAKER) (test vimz=703) 1 % BASOPHILS RELATIVE PERCENT (BEAKER) (test guqo=110) 1 % NEUTROPHILS ABSOLUTE COUNT (BEAKER) (test vlsx=854) 4.97 K/ L 1.56-6.13 LYMPHOCYTES ABSOLUTE COUNT (BEAKER) (test ajxk=898) 1.97 K/ L 1.18-3.74 MONOCYTES ABSOLUTE COUNT (BEAKER) (test hnkt=017) 0.52 K/ L 0.24-0.36 EOSINOPHILS ABSOLUTE COUNT (BEAKER) (test dqjp=216) 0.09 K/ L 0.04-0.36 BASOPHILS ABSOLUTE COUNT (BEAKER) (test ewjg=977) 0.04 K/ L 0.01-0.08 IMMATURE GRANULOCYTES-RELATIVE PERCENT (BEAKER) (test vfwn=8678) 0 % 0-1 COMPREHENSIVE METABOLIC [id number] 12:56:00* Test Item Value Reference Range Comments TOTAL PROTEIN (BEAKER) (test njvt=650) 6.1 gm/dL 6.0-8.3 ALBUMIN (BEAKER) (test ugvp=2359) 2.3 g/dL 3.5-5.0 ALKALINE PHOSPHATASE (BEAKER) (test yalq=555) 252 U/L 40-150 BILIRUBIN TOTAL (BEAKER) (test ulhn=388) 6.4 mg/dL 0.2-1.2 SODIUM (BEAKER) (test xdvp=414) 138 meq/L 136-145 POTASSIUM (BEAKER) (test jcrl=472) 4.1 meq/L 3.5-5.1 CHLORIDE (BEAKER) (test uadf=437) 107 meq/L 98-107 CO2 (BEAKER) (test crjj=666) 24 meq/L 22-29 BLOOD UREA NITROGEN (BEAKER) (test npqm=259) 13 mg/dL 7-21 CREATININE (BEAKER) (test flir=686) 0.70 mg/dL 0.57-1.25 GLUCOSE RANDOM (BEAKER) (test circ=687) 92 mg/dL 70-105 CALCIUM (BEAKER) (test qgls=808) 8.3 mg/dL 8.4-10.2 AST (SGOT) (BEAKER) (test ptqq=209) 49 U/L 5-34 ALT (SGPT) (BEAKER) (test iqby=282) 35 U/L 6-55 EGFR (BEAKER) (test zeau=1699) 86 mL/min/1.73 sq m ESTIMATED GFR IS NOT ACCURATE CREATININE CLEARANCE IN PREDICTING GLOMERULAR FILTRATION RATE. ESTIMATED GFR IS NOT APPLICABLE FOR DIALYSIS PATIENTS. Specimen moderately ictericBILIRUBIN, [id number] 12:56:00* Test Item Value Reference Range Comments BILIRUBIN DIRECT (BEAKER) (test wwbu=234) 3.4 mg/dL 0.1-0.5 PROTHROMBIN [id number] 12:42:00* Test Item Value Reference Range Comments PROTIME (BEAKER) (test aeec=273) 22.1 seconds 11.7-14.7 INR (BEAKER) (test swyh=168) 1.9 <=5.9 RECOMMENDED COUMADIN/WARFARIN INR THERAPY RANGESSTANDARD DOSE: 2.0 - 3.0 Inclu abi: PROPHYLAXIS for venous thrombosis, systemic embolization; TREATMENT for fam ous thrombosis and/or pulmonary embolus.HIGH RISK: Target INR is 2.5-3.5 for pat ients with mechanical heart valves.CBC W/PLT COUNT & AUTO [id number] 12:22:00* Test Item Value Reference Range Comments WHITE BLOOD CELL COUNT (BEAKER) (test irgi=409) 6.0 K/ L 3.5-10.5 RED BLOOD CELL COUNT (BEAKER) (test oqqc=296) 2.90 M/ L 3.93-5.22 HEMOGLOBIN (BEAKER) (test msnc=417) 8.9 GM/DL 11.2-15.7 HEMATOCRIT (BEAKER) (test lfqs=941) 28.2 % 34.1-44.9 MEAN CORPUSCULAR VOLUME (BEAKER) (test bqew=328) 97.2 fL 79.4-94.8 MEAN CORPUSCULAR HEMOGLOBIN (BEAKER) (test xlce=673) 30.7 pg 25.6-32.2 MEAN CORPUSCULAR HEMOGLOBIN CONC (BEAKER) (test mjec=790) 31.6 GM/DL 32.2-35.5 RED CELL DISTRIBUTION WIDTH (BEAKER) (test dtsi=477) 16.2 % 11.7-14.4 PLATELET COUNT (BEAKER) (test jytx=875) 67 K/CU MM 150-450 MEAN PLATELET VOLUME (BEAKER) (test kykq=835) 11.0 fL 9.4-12.3 NUCLEATED RED BLOOD CELLS (BEAKER) (test cqrg=192) 0 /100 WBC 0-0 NEUTROPHILS RELATIVE PERCENT (BEAKER) (test pgqs=302) 55 % LYMPHOCYTES RELATIVE PERCENT (BEAKER) (test yjmo=505) 31 % MONOCYTES RELATIVE PERCENT (BEAKER) (test pweb=236) 13 % EOSINOPHILS RELATIVE PERCENT (BEAKER) (test iraf=481) 1 % BASOPHILS RELATIVE PERCENT (BEAKER) (test vdbl=961) 1 % NEUTROPHILS ABSOLUTE COUNT (BEAKER) (test vcts=966) 3.25 K/ L 1.56-6.13 LYMPHOCYTES ABSOLUTE COUNT (BEAKER) (test vtwv=199) 1.84 K/ L 1.18-3.74 MONOCYTES ABSOLUTE COUNT (BEAKER) (test zrvq=657) 0.75 K/ L 0.24-0.36 EOSINOPHILS ABSOLUTE COUNT (BEAKER) (test udyz=991) 0.05 K/ L 0.04-0.36 BASOPHILS ABSOLUTE COUNT (BEAKER) (test yhrk=303) 0.04 K/ L 0.01-0.08 IMMATURE GRANULOCYTES-RELATIVE PERCENT (BEAKER) (test vxji=4747) 1 % 0-1 BLOOD [id number] 08:09:00* Test Item Value Reference Range Comments CULTURE (BEAKER) (test paqn=8158) From Aerobic And Anaerobic Bottles Coagulase negative Staphylococcus GRAM STAIN RESULT (BEAKER) (test xqoj=8958) From aerobic and anaerobic bottles: gram positive cocci in clusters Coagulase Negative Staphylococcus Species (CoNS) DETECTED, Methicillin Susceptib le First line therapy: cefazolin, nafcillin (nafcillin preferred for Central Ner vous System infection) Coagulase Negative Staphylococcus (CoNS) DETECTEDmecA NO T DETECTEDOther organisms and resistance markers not contained in this PCR panel cannot be excluded and follow-up of traditional culture results is required. Th is sample was tested at the [facility] Clinical Microbiology Laboratory using the [employer] Blood Culture ID Panel. This test is FDA cleared for in vitro arnold gnostic use and has been verified and approved by the [facility] Clinical Microbiolog y laboratory for clinical use. Reference Range: Not DetectedMISCELLANEOUS LAB [id number] 14:46:00* Test Item Value Reference Range Comments SCAN RESULT (test ydkb=[id number]) Result comments: Coagulase Negative Staphylococcus Species (CoNS) DETECTED, Meth icillin Susceptible First line therapy: cefazolin, nafcillin (nafcillin prefer red for Central Nervous System infection) Coagulase Negative Staphylococcus ( CoNS) DETECTED mecA NOT DETECTED Other organisms and resistance markers not cont ained in this PCR panel cannot be excluded and follow-up of traditional culture results is required. This sample was tested at the [facility] Clinical Microbiology L aboratory using the [employer] Blood Culture ID Panel. This test is FDA c leared for in vitro diagnostic use and has been verified and approved by the [facility] Clinical Microbiology laboratory for clinical use. Reference Range: Not Detec tedURINE [id number] 12:01:00* Test Item Value Reference Range Comments CULTURE (BEAKER) (test exqv=7933) >100,000 col/mL skin kristi BASIC METABOLIC [id number] 10:41:00* Test Item Value Reference Range Comments SODIUM (BEAKER) (test xaci=551) 135 meq/L 136-145 POTASSIUM (BEAKER) (test xtih=152) 4.2 meq/L 3.5-5.1 CHLORIDE (BEAKER) (test xglh=415) 108 meq/L 98-107 CO2 (BEAKER) (test sxfx=689) 22 meq/L 22-29 BLOOD UREA NITROGEN (BEAKER) (test ixtn=707) 9 mg/dL 7-21 CREATININE (BEAKER) (test totq=857) 0.62 mg/dL 0.57-1.25 GLUCOSE RANDOM (BEAKER) (test dvjz=649) 83 mg/dL 70-105 CALCIUM (BEAKER) (test rssw=154) 7.9 mg/dL 8.4-10.2 EGFR (BEAKER) (test vbyo=6997) 99 mL/min/1.73 sq m ESTIMATED GFR IS NOT ACCURATE CREATININE CLEARANCE IN PREDICTING GLOMERULAR FILTRATION RATE. ESTIMATED GFR IS NOT APPLICABLE FOR DIALYSIS PATIENTS. Specimen moderately [id number] 10:17:00* Test Item Value Reference Range Comments MAGNESIUM (BEAKER) (test vdzj=587) 1.5 mg/dL 1.6-2.6 HEPATIC FUNCTION [id number] 10:17:00* Test Item Value Reference Range Comments TOTAL PROTEIN (BEAKER) (test buxo=140) 5.5 gm/dL 6.0-8.3 ALBUMIN (BEAKER) (test lzpt=4866) 2.0 g/dL 3.5-5.0 BILIRUBIN TOTAL (BEAKER) (test jtqh=265) 5.6 mg/dL 0.2-1.2 BILIRUBIN DIRECT (BEAKER) (test apfx=420) 3.5 mg/dL 0.1-0.5 ALKALINE PHOSPHATASE (BEAKER) (test ueeo=534) 224 U/L 40-150 AST (SGOT) (BEAKER) (test dhqe=121) 48 U/L 5-34 ALT (SGPT) (BEAKER) (test gtrq=813) 35 U/L 6-55 Specimen moderately ictericPROTHROMBIN [id number] 06:45:00* Test Item Value Reference Range Comments PROTIME (BEAKER) (test nogj=338) 23.8 seconds 11.7-14.7 INR (BEAKER) (test izou=274) 2.1 <=5.9 RECOMMENDED COUMADIN/WARFARIN INR THERAPY RANGESSTANDARD DOSE: 2.0 - 3.0 Inclu abi: PROPHYLAXIS for venous thrombosis, systemic embolization; TREATMENT for fam ous thrombosis and/or pulmonary embolus.HIGH RISK: Target INR is 2.5-3.5 for pat ients with mechanical heart valves.CBC W/PLT COUNT & AUTO [id number] 06:08:00* Test Item Value Reference Range Comments WHITE BLOOD CELL COUNT (BEAKER) (test aofy=963) 5.1 K/ L 3.5-10.5 RED BLOOD CELL COUNT (BEAKER) (test usyt=864) 2.75 M/ L 3.93-5.22 HEMOGLOBIN (BEAKER) (test dqgp=304) 8.5 GM/DL 11.2-15.7 HEMATOCRIT (BEAKER) (test udzb=795) 26.7 % 34.1-44.9 MEAN CORPUSCULAR VOLUME (BEAKER) (test oedw=277) 97.1 fL 79.4-94.8 MEAN CORPUSCULAR HEMOGLOBIN (BEAKER) (test fsif=138) 30.9 pg 25.6-32.2 MEAN CORPUSCULAR HEMOGLOBIN CONC (BEAKER) (test vaut=429) 31.8 GM/DL 32.2-35.5 RED CELL DISTRIBUTION WIDTH (BEAKER) (test uibk=391) 16.3 % 11.7-14.4 PLATELET COUNT (BEAKER) (test bedr=310) 58 K/CU MM 150-450 MEAN PLATELET VOLUME (BEAKER) (test lqcp=591) 10.6 fL 9.4-12.3 NUCLEATED RED BLOOD CELLS (BEAKER) (test mcjy=163) 0 /100 WBC 0-0 NEUTROPHILS RELATIVE PERCENT (BEAKER) (test hdba=923) 49 % LYMPHOCYTES RELATIVE PERCENT (BEAKER) (test jxte=415) 36 % MONOCYTES RELATIVE PERCENT (BEAKER) (test sish=598) 12 % EOSINOPHILS RELATIVE PERCENT (BEAKER) (test kvvv=815) 3 % BASOPHILS RELATIVE PERCENT (BEAKER) (test akwd=150) 1 % NEUTROPHILS ABSOLUTE COUNT (BEAKER) (test brrw=307) 2.49 K/ L 1.56-6.13 LYMPHOCYTES ABSOLUTE COUNT (BEAKER) (test phuw=672) 1.84 K/ L 1.18-3.74 MONOCYTES ABSOLUTE COUNT (BEAKER) (test cocl=502) 0.60 K/ L 0.24-0.36 EOSINOPHILS ABSOLUTE COUNT (BEAKER) (test bkfg=621) 0.13 K/ L 0.04-0.36 BASOPHILS ABSOLUTE COUNT (BEAKER) (test nbob=065) 0.03 K/ L 0.01-0.08 IMMATURE GRANULOCYTES-RELATIVE PERCENT (BEAKER) (test ihie=6280) 0 % 0-1 URINALYSIS W/ [id number] 15:49:00* Test Item Value Reference Range Comments COLOR (BEAKER) (test pvkf=348) [place] CLARITY (BEAKER) (test kbfu=451) Clear SPECIFIC GRAVITY UA (BEAKER) (test kfkm=216) 1.011 1.001-1.035 PH UA (BEAKER) (test zeos=373) 5.5 5.0-8.0 PROTEIN UA (BEAKER) (test gwxg=535) Negative Negative GLUCOSE UA (BEAKER) (test ueoa=204) Negative Negative KETONES UA (BEAKER) (test brrn=173) Negative Negative BILIRUBIN UA (BEAKER) (test srpx=015) Positive Negative BLOOD UA (BEAKER) (test blls=119) Small Negative NITRITE UA (BEAKER) (test fons=401) Negative Negative LEUKOCYTE ESTERASE UA (BEAKER) (test xqvb=165) Negative Negative UROBILINOGEN UA (BEAKER) (test sffn=802) 2.0 mg/dL 0.2-1.0 RBC UA (BEAKER) (test vthx=490) 1 /HPF WBC UA (BEAKER) (test usnt=998) < /HPF MUCUS (BEAKER) (test rqiq=2316) Rare SOURCE(BEAKER) (test xvwv=2559) Urine, Voided 1:1 MIXING STUDY, [id number] 07:42:00* Test Item Value Reference Range Comments PROTIME (BEAKER) (test tpmg=902) 23.3 seconds 11.7-14.7 PARTIAL THROMBOPLASTIN TIME (BEAKER) (test vien=889) 56.6 seconds 22.5-36.0 PT 1/1 MIX (BEAKER) (test pmpm=8670) 15.6 SECS 11.7-14.7 PTT 1/1 MIX (BEAKER) (test uzah=1067) 34.7 SECS 22.5-36.0 [id number] 07:20:00* Test Item Value Reference Range Comments ETHANOL (BEAKER) (test vvde=260) < mg/dL <=10 RESPIRATORY PANEL [id number] 07:12:00* Test Item Value Reference Range Comments HUMAN METAPNEUMOVIRUS (BEAKER) (test bnem=6987) Not detected Not detected, Inconclusive RHINOVIRUS (BEAKER) (test fpef=3773) Not detected Not detected, Inconclusive INFLUENZA A (BEAKER) (test rzvx=2316) Not detected Not detected, Inconclusive INFLUENZA A SUBTYPE H1 (BEAKER) (test jhwp=5066) Not detected Not detected, Inconclusive INFLUENZA A SUBTYPE H3 (BEAKER) (test rdse=3534) Not detected Not detected, Inconclusive INFLUENZA A SUBTYPE H1-2009 (BEAKER) (test ttfx=5507) Not detected Not detected, Inconclusive INFLUENZA B (BEAKER) (test iguz=9646) Not detected Not detected, Inconclusive RESPIRATORY SYNCYTIAL VIRUS (BEAKER) (test urig=3798) Not detected Not detected, Inconclusive PARAINFLUENZA VIRUS 1 (BEAKER) (test hzio=3122) Not detected Not detected, Inconclusive PARAINFLUENZA VIRUS 2 (BEAKER) (test nqew=7125) Not detected Not detected, Inconclusive PARAINFLUENZA VIRUS 3 (BEAKER) (test uisz=1069) Not detected Not detected, Inconclusive PARAINFLUENZA VIRUS 4 (BEAKER) (test oxxq=9340) Not detected Not detected, Inconclusive ADENOVIRUS (BEAKER) (test gkub=6390) Not detected Not detected, Inconclusive CORONAVIRUS 229E (BEAKER) (test wfvj=7809) Not detected Not detected, Inconclusive CORONAVIRUS HKU1 (BEAKER) (test qjzm=0444) Not detected Not detected, Inconclusive CORONAVIRUS NL63 (BEAKER) (test apvf=6285) Not detected Not detected, Inconclusive CORONAVIRUS OC43 (BEAKER) (test pyzo=4253) Not detected Not detected, Inconclusive BORDETELLA PERTUSSIS (BEAKER) (test psdq=9881) Not detected Not detected, Inconclusive CHLAMYDOPHILA PNEUMONIAE (BEAKER) (test ydga=0134) Not detected Not detected, Inconclusive MYCOPLASMA PNEUMONIAE (BEAKER) (test wkyg=4692) Not detected Not detected, Inconclusive BASIC METABOLIC [id number] 06:12:00* Test Item Value Reference Range Comments SODIUM (BEAKER) (test ephb=547) 137 meq/L 136-145 POTASSIUM (BEAKER) (test emem=063) 3.9 meq/L 3.5-5.1 CHLORIDE (BEAKER) (test tpms=000) 108 meq/L 98-107 CO2 (BEAKER) (test gxnp=888) 24 meq/L 22-29 BLOOD UREA NITROGEN (BEAKER) (test oips=402) 8 mg/dL 7-21 CREATININE (BEAKER) (test akil=699) 0.59 mg/dL 0.57-1.25 GLUCOSE RANDOM (BEAKER) (test zvum=973) 88 mg/dL 70-105 CALCIUM (BEAKER) (test wefz=330) 7.9 mg/dL 8.4-10.2 EGFR (BEAKER) (test oylo=8742) 105 mL/min/1.73 sq m ESTIMATED GFR IS NOT ACCURATE CREATININE CLEARANCE IN PREDICTING GLOMERULAR FILTRATION RATE. ESTIMATED GFR IS NOT APPLICABLE FOR DIALYSIS PATIENTS. Specimen moderately [id number] 06:00:00* Test Item Value Reference Range Comments MAGNESIUM (BEAKER) (test tvbb=259) 1.5 mg/dL 1.6-2.6 HEPATIC FUNCTION [id number] 06:00:00* Test Item Value Reference Range Comments TOTAL PROTEIN (BEAKER) (test gikp=642) 5.5 gm/dL 6.0-8.3 ALBUMIN (BEAKER) (test lqll=8911) 2.1 g/dL 3.5-5.0 BILIRUBIN TOTAL (BEAKER) (test kltz=248) 6.4 mg/dL 0.2-1.2 BILIRUBIN DIRECT (BEAKER) (test xtng=829) 3.4 mg/dL 0.1-0.5 ALKALINE PHOSPHATASE (BEAKER) (test kcbe=959) 206 U/L 40-150 AST (SGOT) (BEAKER) (test wqzz=313) 55 U/L 5-34 ALT (SGPT) (BEAKER) (test chhn=402) 39 U/L 6-55 Specimen moderately ictericPROTHROMBIN TIME/[id number] 05:25:00* Test Item Value Reference Range Comments PROTIME (BEAKER) (test aart=322) 23.8 seconds 11.7-14.7 INR (BEAKER) (test gujq=451) 2.1 <=5.9 RECOMMENDED COUMADIN/WARFARIN INR THERAPY RANGESSTANDARD DOSE: 2.0 - 3.0 Inclu abi: PROPHYLAXIS for venous thrombosis, systemic embolization; TREATMENT for fam ous thrombosis and/or pulmonary embolus.HIGH RISK: Target INR is 2.5-3.5 for pat ients with mechanical heart valves.CBC W/PLT COUNT & AUTO [id number] 05:15:00* Test Item Value Reference Range Comments WHITE BLOOD CELL COUNT (BEAKER) (test duqo=733) 5.6 K/ L 3.5-10.5 RED BLOOD CELL COUNT (BEAKER) (test jkjn=308) 2.88 M/ L 3.93-5.22 HEMOGLOBIN (BEAKER) (test xuxc=198) 8.8 GM/DL 11.2-15.7 HEMATOCRIT (BEAKER) (test klwl=030) 27.5 % 34.1-44.9 MEAN CORPUSCULAR VOLUME (BEAKER) (test qrkn=448) 95.5 fL 79.4-94.8 MEAN CORPUSCULAR HEMOGLOBIN (BEAKER) (test xwqz=172) 30.6 pg 25.6-32.2 MEAN CORPUSCULAR HEMOGLOBIN CONC (BEAKER) (test jzzw=043) 32.0 GM/DL 32.2-35.5 RED CELL DISTRIBUTION WIDTH (BEAKER) (test sjsu=302) 16.2 % 11.7-14.4 PLATELET COUNT (BEAKER) (test tfpy=833) 59 K/CU MM 150-450 MEAN PLATELET VOLUME (BEAKER) (test jzky=155) 10.5 fL 9.4-12.3 NUCLEATED RED BLOOD CELLS (BEAKER) (test uedi=083) 0 /100 WBC 0-0 NEUTROPHILS RELATIVE PERCENT (BEAKER) (test olfk=037) 51 % LYMPHOCYTES RELATIVE PERCENT (BEAKER) (test vkyo=447) 35 % MONOCYTES RELATIVE PERCENT (BEAKER) (test hilq=483) 11 % EOSINOPHILS RELATIVE PERCENT (BEAKER) (test ahrz=891) 2 % BASOPHILS RELATIVE PERCENT (BEAKER) (test amau=759) 1 % NEUTROPHILS ABSOLUTE COUNT (BEAKER) (test blpq=837) 2.85 K/ L 1.56-6.13 LYMPHOCYTES ABSOLUTE COUNT (BEAKER) (test qzra=758) 1.94 K/ L 1.18-3.74 MONOCYTES ABSOLUTE COUNT (BEAKER) (test tsnv=904) 0.58 K/ L 0.24-0.36 EOSINOPHILS ABSOLUTE COUNT (BEAKER) (test yvsg=446) 0.13 K/ L 0.04-0.36 BASOPHILS ABSOLUTE COUNT (BEAKER) (test vmbk=500) 0.04 K/ L 0.01-0.08 IMMATURE GRANULOCYTES-RELATIVE PERCENT (BEAKER) (test zhan=8062) 0 % 0-1 RAPID DRUG SCREEN, [id number] 20:58:00* Test Item Value Reference Range Comments BARBITURATE URINE (BEAKER) (test defk=601) Negative Negative BENZODIAZEPINE SCREEN URINE (BEAKER) (test pzix=950) Negative Negative COCAINE (METAB.) SCREEN (BEAKER) (test kfqf=8688) Negative Negative METHADONE SCREEN (BEAKER) (test ctkx=4686) Negative Negative OPIATE SCREEN URINE (BEAKER) (test hnnc=253) Negative Negative CANNABINOID SCREEN URINE (BEAKER) (test qkkn=762) Negative Negative AMPH/METHAMPH SCREEN (BEAKER) (test ubfx=5273) Negative Negative PHENCYCLIDINE SCREEN URINE (BEAKER) (test qiil=094) Negative Negative OXYCODONE SCREEN URINE (BEAKER) (test peih=0032) Negative Negative DRUG CUTOFF CONC.Cocaine 300 ng/mL Cannabinoid 50 ng/mL Benzodiazepine 200 ng/mLBarbiturate 200 ng/mLPh encyclidine 25 ng/mLOpiate 300 ng/mLMethadone 300 ng/mLAmphetamine/ 1000 ng/mL MethamphetamineOxycodone 300 ng/mLThis assay provides an unconfirmed qualitative test result for the cli nical management of patients in emergency situations. Chain of custody not maint ained. Some gwhy-ehj-clgeolm medications, as well as adulterants, may cause inac curate results. Clinical correlation should be applied. A more comprehensive benji g screen or confirmation of a detected drug may be performed upon request.CT, CHEST WITH IV CONTRAST- PE TEST [id number] 15:07:00Referring: self referral per patientReason for exam:->HEMOPTYSISIs the patient ?->NoWhat is the patient's sedation requirement?->No SedationFINAL REPORT CT of the chest, pulmonary embolism protocol Clinical History: Shortness of breathHEMOPTYSIS Technique: Precontrast axial images at the level of the pulmonary outflow tract are obtained for the purpose of contrast bolus tracking. Postcontrast axial images of the chest are subsequently obtained with optimal pulmonary arterial enhancement followed by delayed postcontrast images. Coronal 2D reformatted images are reviewed. This exam was performed according to our departmental dose optimization program which includes automated exposure control, adjustment of the mA and/or kV according to patient's size and/or use of iterative reconstructive technique. Comparison Film: Chest radiograph dated August 04, 2017 Discussion: No filling defects are identified within the pulmonary arteries to suggest acute pulmonary embolism. Visualized thyroid gland is normal. There is no supraclavicular, axillary, mediastinal or hilar adenopathy. Heart and pericardium are unremarkable. There is no mass or cons olidation, no pleural effusion. At the right upper lobe, there is a nonspecific 2 mm nodule. Central airways are patent, no bronchiectasis, or bronchial wall th ickening. Liver is cirrhotic, status post TIPS. 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 Osseous structures are unremarkable. Bilateral breast prosthesis are noted. Im pression: No PE is identified. No evidence of acute process in the thorax. Nonsp ecific 2 mm nodule in the right upper lobe. Cirrhosis and periesophageal varices . Status post TIPS. Signed: Rachel Banegas Verified Date/Time: 08/04/2017 15 :07:37 Reading Location: [facility] [id number] CT Body Reading Room TIC FUNCTION PANEL 2017-08-04 13:34:00* Test Item Value Reference Range Comments TOTAL PROTEIN (BEAKER) (test fusy=656) 6.3 gm/dL 6.0-8.3 ALBUMIN (BEAKER) (test wgab=9672) 2.3 g/dL 3.5-5.0 BILIRUBIN TOTAL (BEAKER) (test lqun=156) 6.2 mg/dL 0.2-1.2 BILIRUBIN DIRECT (BEAKER) (test xhok=446) 3.8 mg/dL 0.1-0.5 ALKALINE PHOSPHATASE (BEAKER) (test akfw=056) 254 U/L 40-150 AST (SGOT) (BEAKER) (test mlly=572) 62 U/L 5-34 ALT (SGPT) (BEAKER) (test jabx=350) 44 U/L 6-55 Specimen moderately ictericPT/[id number] 13:09:00* Test Item Value Reference Range Comments PROTIME (BEAKER) (test sbld=218) 23.9 seconds 11.7-14.7 INR (BEAKER) (test qzmu=332) 2.1 <=5.9 PARTIAL THROMBOPLASTIN TIME (BEAKER) (test zqua=968) 54.6 seconds 22.5-36.0 RECOMMENDED COUMADIN/WARFARIN INR THERAPY RANGESSTANDARD DOSE: 2.0 - 3.0 Inclu abi: PROPHYLAXIS for venous thrombosis, systemic embolization; TREATMENT for fam ous thrombosis and/or pulmonary embolus.HIGH RISK: Target INR is 2.5-3.5 for pat ients with mechanical heart valves.RAD, CHEST, 1 VIEW, NON [id number] 12:54:00Referring: self referral per patientReason for exam:->HEMOPTYSISIs the patient ?->NoShould this be performed at the bedside?->YesFINAL REPORT CLINICAL HISTORY: HEMOPTYSIS TECHNIQUE: 1 view of the chest COMPARISON: 06/18/2017 IMPRESSION: There are no focal infiltrates or pleural effusions. The cardiomediastinal silhouette is within normal limits for size. The visualized bones are intact. Signed: Marcela Celeste MDReport Verified Date/Time: 08/04/2017 12:54:27 Reading Location: [address] Consult Reading Room REHENSIVE METABOLIC [id number] 12:35:00* Test Item Value Reference Range Comments TOTAL PROTEIN (BEAKER) (test hsun=458) 6.5 gm/dL 6.0-8.3 ALBUMIN (BEAKER) (test hioy=9382) 2.4 g/dL 3.5-5.0 ALKALINE PHOSPHATASE (BEAKER) (test krri=510) 259 U/L 40-150 BILIRUBIN TOTAL (BEAKER) (test uexq=537) 6.7 mg/dL 0.2-1.2 SODIUM (BEAKER) (test dsov=148) 136 meq/L 136-145 POTASSIUM (BEAKER) (test eyud=758) 3.5 meq/L 3.5-5.1 CHLORIDE (BEAKER) (test ohqd=956) 104 meq/L 98-107 CO2 (BEAKER) (test prol=149) 27 meq/L 22-29 BLOOD UREA NITROGEN (BEAKER) (test khoa=438) 9 mg/dL 7-21 CREATININE (BEAKER) (test fzls=884) 0.63 mg/dL 0.57-1.25 GLUCOSE RANDOM (BEAKER) (test uleg=240) 75 mg/dL 70-105 CALCIUM (BEAKER) (test gmmc=995) 7.8 mg/dL 8.4-10.2 AST (SGOT) (BEAKER) (test ixzx=549) 59 U/L 5-34 ALT (SGPT) (BEAKER) (test dddj=658) 41 U/L 6-55 EGFR (BEAKER) (test dtzj=9262) 97 mL/min/1.73 sq m ESTIMATED GFR IS NOT ACCURATE CREATININE CLEARANCE IN PREDICTING GLOMERULAR FILTRATION RATE. ESTIMATED GFR IS NOT APPLICABLE FOR DIALYSIS PATIENTS. Specimen moderately ictericCBC W/PLT COUNT & AUTO [id number] 12:04:00* Test Item Value Reference Range Comments WHITE BLOOD CELL COUNT (BEAKER) (test qoyt=857) 6.1 K/ L 3.5-10.5 RED BLOOD CELL COUNT (BEAKER) (test gefg=522) 2.97 M/ L 3.93-5.22 HEMOGLOBIN (BEAKER) (test qmta=564) 9.4 GM/DL 11.2-15.7 HEMATOCRIT (BEAKER) (test vipy=322) 28.9 % 34.1-44.9 MEAN CORPUSCULAR VOLUME (BEAKER) (test hhrn=917) 97.3 fL 79.4-94.8 MEAN CORPUSCULAR HEMOGLOBIN (BEAKER) (test nofa=937) 31.6 pg 25.6-32.2 MEAN CORPUSCULAR HEMOGLOBIN CONC (BEAKER) (test sscr=598) 32.5 GM/DL 32.2-35.5 RED CELL DISTRIBUTION WIDTH (BEAKER) (test fcud=689) 16.1 % 11.7-14.4 PLATELET COUNT (BEAKER) (test kcnm=037) 69 K/CU MM 150-450 MEAN PLATELET VOLUME (BEAKER) (test drjp=296) 10.9 fL 9.4-12.3 NUCLEATED RED BLOOD CELLS (BEAKER) (test jcei=777) 0 /100 WBC 0-0 NEUTROPHILS RELATIVE PERCENT (BEAKER) (test zwit=560) 53 % LYMPHOCYTES RELATIVE PERCENT (BEAKER) (test eprn=457) 33 % MONOCYTES RELATIVE PERCENT (BEAKER) (test vuxx=569) 11 % EOSINOPHILS RELATIVE PERCENT (BEAKER) (test jjst=620) 2 % BASOPHILS RELATIVE PERCENT (BEAKER) (test ladr=770) 1 % NEUTROPHILS ABSOLUTE COUNT (BEAKER) (test ptlt=727) 3.25 K/ L 1.56-6.13 LYMPHOCYTES ABSOLUTE COUNT (BEAKER) (test xyum=076) 1.98 K/ L 1.18-3.74 MONOCYTES ABSOLUTE COUNT (BEAKER) (test rddx=795) 0.69 K/ L 0.24-0.36 EOSINOPHILS ABSOLUTE COUNT (BEAKER) (test jyqf=413) 0.09 K/ L 0.04-0.36 BASOPHILS ABSOLUTE COUNT (BEAKER) (test wpor=476) 0.06 K/ L 0.01-0.08 IMMATURE GRANULOCYTES-RELATIVE PERCENT (BEAKER) (test dans=0631) 0 % 0-1 MISCELLANEOUS LAB [id number] 07:57:00* Test Item Value Reference Range Comments SCAN RESULT (test ties=1051718) CYTOMEGALOVIRUS ANTIBODY, [id number] 14:25:00* Test Item Value Reference Range Comments CYTOMEGALOVIRUS IGG ANTIBODY (BEAKER) (test nldr=996) Positive CYTOMEGALOVIRUS ANTIBODY, [id number] 14:25:00* Test Item Value Reference Range Comments CYTOMEGALOVIRUS IGM ANTIBODY (BEAKER) (test knmt=681) Negative EBV-VCA ANTIBODY, [id number] 14:25:00* Test Item Value Reference Range Comments BERT-HASSAN VCA IGG (BEAKER) (test lued=179) Positive EBV-VCA ANTIBODY, [id number] 14:25:00* Test Item Value Reference Range Comments BERT-HASSAN VCA IGM (BEAKER) (test ymqa=741) Negative CRYPTOCOCCAL [id number] 23:01:00* Test Item Value Reference Range Comments CRYPTOCOCCAL ANTIGEN, SERUM (BEAKER) (test vrwj=5157) Negative Negative, Interference [id number] 22:58:00* Test Item Value Reference Range Comments RPR SCREEN (BEAKER) (test odte=628) Nonreactive Nonreactive URINALYSIS W/ [id number] 15:42:00* Test Item Value Reference Range Comments COLOR (BEAKER) (test kemc=966) Dark Yellow CLARITY (BEAKER) (test iveb=834) Clear SPECIFIC GRAVITY UA (BEAKER) (test ulqw=146) 1.017 1.001-1.035 PH UA (BEAKER) (test xjvd=930) 6.0 5.0-8.0 PROTEIN UA (BEAKER) (test ruuf=716) 10 mg/dL Negative GLUCOSE UA (BEAKER) (test qrcx=930) Negative Negative KETONES UA (BEAKER) (test aqwv=976) Negative Negative BILIRUBIN UA (BEAKER) (test wueo=616) Positive Negative BLOOD UA (BEAKER) (test mcfl=070) Moderate Negative NITRITE UA (BEAKER) (test gmcn=833) Negative Negative LEUKOCYTE ESTERASE UA (BEAKER) (test ymjq=099) Negative Negative UROBILINOGEN UA (BEAKER) (test xqpw=445) 0.2 mg/dL 0.2-1.0 RBC UA (BEAKER) (test sgyl=574) 29 /HPF WBC UA (BEAKER) (test udiy=064) 1 /HPF MUCUS (BEAKER) (test flhk=8355) Few SQUAMOUS EPITHELIAL (BEAKER) (test yuhp=439) < /HPF SOURCE(BEAKER) (test kija=9462) CT, ABDOMEN, [id number] 14:18:00Referring: Dr. Rj [facility]-Triple PhaseFINAL REPORT CT of the abdomen without and with contrast History: Liver transplant evaluation Comparison: None available. Technique: Multidetector CT scanning of the abdomen were obtained before and after the administration of intravenous contrast. Postcontrast images were obtained during the arterial, venous, and delayed phases. DOSE REDUCTION: The examination was performed according to departmental dose-optimization program which includes automated exposure control, adjustment of the mA and/or kV according to patient size and/or use of iterative reconstruction technique. Discussion: The lung bases demonstrate dependent atelectasis versus scarring. The liver has a cirrhotic morphology with a nodular contour. No focal hepatic lesions are identified. A patent TIPS stent is in place coursing from the right portal vein to right hepatic vein. The gallbladder demonstrates multiple calcified gallstones. There is some edema of the wall of the gallbladder which can be seen in cirrhosis. There is no evidence of intrahepatic or extra hepatic ductal dilatation. The spleen is mildly enlarged measuring 13 cm in craniocaudal dimension. The bilateral adrenal glands are within normal limits. The pancreas has a 5 mm cystic lesion in the body which may be sidebranch IPMN. There is no pancreatic ductal dilatation. The kidneys are normal in size. There is no evidence of hydroureteronephrosis bilaterally. A 6 mm cyst is seen in the midpol e of the right kidney. The abdominal aorta is of normal course and caliber. The splenic vein, superior mesenteric vein, and portal vein are patent. Esophageal v arices are present. The no suspicious osseous lesions are identified. There is d iffuse soft tissue anasarca. IMPRESSION:1. Cirrhosis without evidence of focal h epatic mass.2. Patent TIPS.3. 5 mm cystic lesion within the pancreatic body may represent a small side branch IPMN. Further evaluation can be obtained with an M RI/MRCP or EUS.4. Cholelithiasis. Signed: Jermaine Gonzales [facility] Verified Date /Time: 06/18/2017 14:18:13 Reading Location: [address] Radiology Reading Ro om , BONE DENSITY [id number] 14:03:00Referring: Dr. Rj Negrete for Exam:->evaluation for liver transplantFINAL REPORT Bone density study, 06/18/2017 Clinical History: Screening Bone mineral density measurementLumbar spine1.100 gm/eu2Zdjsiba neck right0.738 gm/cm2 Standard deviation from young adult population (T-score)Lumbar spine-0.7Femoral neck right-2.2 Standard deviation for age adjusted population (Z-score)Lumbar spine0.1Femoral neck right-1.2 According to medical literature, this corresponds to no increased risk of an osteoporotic fracture of the lumbar spine as compared to the young adult population. The right femoral neck bone mineral density corresponds to 1-2 times increased risk of an osteoporotic fracture as compared to the young adult population. Impression: Osteopenia of the right femoral neck. The patient has a left hip joint prosthesis. Complete computer analysis will be sent shortly. Diagnostic criteria for osteoporosisBMD: Bone mineral density Normal: BMD measurement less than one standard deviation from young adult populationOsteopenia: BMD measurement between 1 and 2.5 standard deviationsOsteoporosis: BMD measurement greater than 2.5 standard deviationsSev ere osteoporosis: Osteoporosis and one or more fragility fractures Signed: Neville Toledo Verified Date/Time: 06/18/2017 14:03:20 Reading Location: [address] Mammo Reading Room , MANDIBLE, MIN 4 [id number] 13:00:00Referring: Dr. Rj Morel Reason for Exam:->evaluation for liver transplantFINAL REPORT Mandible series: Clinical History: Liver transplant evaluation Comparison: None Views: Five Report:There is no evidence of fracture or malalignment. There are no focal regions of osteopenia or periosteal reaction to suggest osteomyelitis. Impression:Unremarkable mandibular series. Signed: Jermaine Gonzales Verified Date/Time: 06/18/2017 13:00:57 Readi ng Location: [address] Radiology Reading Room , CHEST, 2 [id number] 12:25:00Referring: Dr. Rj Saunderseason for Exam:->evaluation for liver transplantFINAL REPORT Chest, PA and lateral. History: Liver transplant evaluation. Comparison: None available. Discussion: The heart is within normal limits of size. The mediastinal and hilar contours are unremarkable. There is no focal consolidation, sizable pleural effusion, or pneumothorax. A TIPS stent is seen in the right upper quadrant. IMPRESSION: No radiographic evidence of acute cardiopulmonary abnormality. Signed: Jermaine Gonzales Verified Date/Time: 06/18/2017 12:25:00 Reading Location: [address] Radiology Reading Room GLOBIN [id number] 11:21:00* Test Item Value Reference Range Comments HEMOGLOBIN A1C (BEAKER) (test sqos=964) < % 4.3-6.1 CARCINOEMBRYONIC ANTIGEN (CEA)2017-06-18 11:12:00* Test Item Value Reference Range Comments CARCINOEMBRYONIC ANTIGEN (BEAKER) (test qfrj=308) 15.2 ng/mL 0.0-5.0 [id number] 11:12:00* Test Item Value Reference Range Comments FERRITIN (BEAKER) (test ggzn=300) 53 ng/mL 5-275 HEPATITIS B SURFACE [id number] 11:04:00* Test Item Value Reference Range Comments HEPATITIS B SURFACE ANTIBODY (BEAKER) (test vodi=799) < mIU/mL <8.0 [id number] 11:00:00* Test Item Value Reference Range Comments T4 TOTAL (BEAKER) (test ashe=052) 4.1 ug/dL 4.9-11.7 [id number] 11:00:00* Test Item Value Reference Range Comments THYROID STIMULATING HORMONE (BEAKER) (test xpkr=469) 1.02 uIU/mL 0.35-4.94 [id number] 11:00:00* Test Item Value Reference Range Comments T3 TOTAL (BEAKER) (test uaiu=378) 56 ng/dL 48-159 HEPATITIS C [id number] 10:22:00* Test Item Value Reference Range Comments HEPATITIS C ANTIBODY (BEAKER) (test yafi=985) Nonreactive Nonreactive HEPATITIS A ANTIBODY, [id number] 10:22:00* Test Item Value Reference Range Comments HEPATITIS A IGM ANTIBODY (BEAKER) (test yzfl=135) Nonreactive Nonreactive HIV-1 ANTIGEN WITH HIV-1/2 [id number] 10:20:00* Test Item Value Reference Range Comments HIV-1 ANTIGEN WITH HIV 1\\T\\2 ANTIBODY (2) (BEAKER) (test cnxw=0074) Nonreactive Nonreactive VITAMIN D, [id number] 10:19:00* Test Item Value Reference Range Comments VITAMIN D 25-OH (BEAKER) (test zmld=9417) 9.9 ng/mL 6.6-49.9 Effective 04/23/2017: Reference Range ChangeNew: 6.6-49.9 ng/mL Previous: 13.0 -47.8 ng/mLRecommended Vitamin D Target Range: 30.0-40.0 ng/mLMAGNESIUM 2017-06-18 10:01:00* Test Item Value Reference Range Comments MAGNESIUM (BEAKER) (test hhnk=798) 1.6 mg/dL 1.6-2.6 [id number] 10:01:00* Test Item Value Reference Range Comments PHOSPHORUS (BEAKER) (test obxt=659) 3.6 mg/dL 2.3-4.7 URIC [id number] 10:01:00* Test Item Value Reference Range Comments URIC ACID (BEAKER) (test pugk=333) 2.3 mg/dL 2.6-7.2 Specimen moderately ictericCOMPREHENSIVE METABOLIC [id number] 10:01:00* Test Item Value Reference Range Comments TOTAL PROTEIN (BEAKER) (test eoxe=259) 6.7 gm/dL 6.0-8.3 ALBUMIN (BEAKER) (test oosi=7965) 2.3 g/dL 3.5-5.0 ALKALINE PHOSPHATASE (BEAKER) (test vpbo=095) 269 U/L 40-150 BILIRUBIN TOTAL (BEAKER) (test xplu=124) 8.3 mg/dL 0.2-1.2 SODIUM (BEAKER) (test wgys=619) 138 meq/L 136-145 POTASSIUM (BEAKER) (test aduo=476) 4.1 meq/L 3.5-5.1 CHLORIDE (BEAKER) (test djru=058) 110 meq/L 98-107 CO2 (BEAKER) (test qkaz=918) 23 meq/L 22-29 BLOOD UREA NITROGEN (BEAKER) (test yltr=489) 9 mg/dL 7-21 CREATININE (BEAKER) (test auoq=321) 0.63 mg/dL 0.57-1.25 GLUCOSE RANDOM (BEAKER) (test bycx=806) 82 mg/dL 70-105 CALCIUM (BEAKER) (test xnst=533) 8.3 mg/dL 8.4-10.2 AST (SGOT) (BEAKER) (test iiwf=132) 63 U/L 5-34 ALT (SGPT) (BEAKER) (test ehip=740) 47 U/L 6-55 EGFR (BEAKER) (test ltue=0822) 97 mL/min/1.73 sq m ESTIMATED GFR IS NOT ACCURATE CREATININE CLEARANCE IN PREDICTING GLOMERULAR FILTRATION RATE. ESTIMATED GFR IS NOT APPLICABLE FOR DIALYSIS PATIENTS. Specimen moderately ictericLIPID [id number] 10:01:00* Test Item Value Reference Range Comments TRIGLYCERIDES (BEAKER) (test qzkg=435) 75 mg/dL CHOLESTEROL (BEAKER) (test xvna=261) 113 mg/dL HDL CHOLESTEROL (BEAKER) (test hnnq=357) 17 mg/dL LDL CHOLESTEROL CALCULATED (BEAKER) (test lonw=837) 81 mg/dL Triglyceride Reference Range: Low Risk <150 Borderline 150-199 High Risk 200-499 Very High Risk >=500Cholesterol Reference Range: Low Risk <200 Borderline 200-239 High Risk >240HDL Cholesterol Reference Range: Low Risk >=60 High Risk <40LDL Cholesterol Reference Range: Optimal <100 Near Optimal 100-129 Borderline 130-159 High 160-189 Very High >=190 Specimen moderately ictericBILIRUBIN, [id number] 10:01:00* Test Item Value Reference Range Comments BILIRUBIN DIRECT (BEAKER) (test ynvr=400) 4.3 mg/dL 0.1-0.5 [id number] 09:55:00* Test Item Value Reference Range Comments TRANSFERRIN (BEAKER) (test wabm=374) 252 mg/dL 174-382 Specimen moderately [id number] 09:50:00* Test Item Value Reference Range Comments ETHANOL (BEAKER) (test vmcd=187) < mg/dL <=10 CALCIUM, [id number] 09:50:00* Test Item Value Reference Range Comments CALCIUM IONIZED (BEAKER) (test piif=584) 1.12 mmol/L 1.12-1.27 PH, BLOOD (BEAKER) (test zdks=4052) 7.45 BLOOD GAS, [id number] 09:49:00* Test Item Value Reference Range Comments PH ARTERIAL (BEAKER) (test qwea=291) 7.45 7.35-7.45 PCO2 ARTERIAL (BEAKER) (test epal=177) 31 mmHg 35-45 PO2 ARTERIAL (BEAKER) (test dyst=026) 98 mmHg 80-90 O2 SATURATION ARTERIAL (BEAKER) (test eqgb=427) 97.7 % 96.0-97.0 HCO3 ARTERIAL (BEAKER) (test dymd=271) 21 mmol/L 21-29 BASE EXCESS ARTERIAL (BEAKER) (test vxlq=546) -2.2 mmol/L -2.0-3.0 PATIENT TEMPERATURE (BEAKER) (test klhe=4296) 37.0 C FIO2 (BEAKER) (test voho=8408) 21.0 % [id number] 09:32:00* Test Item Value Reference Range Comments PARTIAL THROMBOPLASTIN TIME (BEAKER) (test gawr=000) 53.0 seconds 22.5-36.0 [id number] 09:31:00* Test Item Value Reference Range Comments FIBRINOGEN LEVEL (BEAKER) (test byqa=718) 178 mg/dl 225-434 PROTHROMBIN TIME/[id number] 09:30:00* Test Item Value Reference Range Comments PROTIME (BEAKER) (test wqdh=512) 22.8 seconds 11.7-14.7 INR (BEAKER) (test odyh=656) 2.0 <=5.9 RECOMMENDED COUMADIN/WARFARIN INR THERAPY RANGESSTANDARD DOSE: 2.0 - 3.0 Inclu abi: PROPHYLAXIS for venous thrombosis, systemic embolization; TREATMENT for fam ous thrombosis and/or pulmonary embolus.HIGH RISK: Target INR is 2.5-3.5 for pat ients with mechanical heart valves.CBC W/PLT COUNT & AUTO [id number] 09:20:00* Test Item Value Reference Range Comments WHITE BLOOD CELL COUNT (BEAKER) (test jrla=354) 6.8 K/ L 3.5-10.5 RED BLOOD CELL COUNT (BEAKER) (test zzvh=099) 3.24 M/ L 3.93-5.22 HEMOGLOBIN (BEAKER) (test paqh=228) 10.4 GM/DL 11.2-15.7 HEMATOCRIT (BEAKER) (test kvuv=972) 32.6 % 34.1-44.9 MEAN CORPUSCULAR VOLUME (BEAKER) (test zzsl=376) 100.6 fL 79.4-94.8 MEAN CORPUSCULAR HEMOGLOBIN (BEAKER) (test mohn=405) 32.1 pg 25.6-32.2 MEAN CORPUSCULAR HEMOGLOBIN CONC (BEAKER) (test awlg=879) 31.9 GM/DL 32.2-35.5 RED CELL DISTRIBUTION WIDTH (BEAKER) (test bzyw=000) 16.5 % 11.7-14.4 PLATELET COUNT (BEAKER) (test kjrq=275) 62 K/CU MM 150-450 MEAN PLATELET VOLUME (BEAKER) (test kter=346) 11.0 fL 9.4-12.3 NUCLEATED RED BLOOD CELLS (BEAKER) (test okzb=679) 0 /100 WBC 0-0 NEUTROPHILS RELATIVE PERCENT (BEAKER) (test vwdo=752) 64 % LYMPHOCYTES RELATIVE PERCENT (BEAKER) (test eoqn=813) 26 % MONOCYTES RELATIVE PERCENT (BEAKER) (test kall=734) 8 % EOSINOPHILS RELATIVE PERCENT (BEAKER) (test aaen=563) 1 % BASOPHILS RELATIVE PERCENT (BEAKER) (test dohj=253) 1 % NEUTROPHILS ABSOLUTE COUNT (BEAKER) (test jivd=334) 4.35 K/ L 1.56-6.13 LYMPHOCYTES ABSOLUTE COUNT (BEAKER) (test svuc=340) 1.75 K/ L 1.18-3.74 MONOCYTES ABSOLUTE COUNT (BEAKER) (test jfbq=804) 0.53 K/ L 0.24-0.36 EOSINOPHILS ABSOLUTE COUNT (BEAKER) (test lnnd=737) 0.09 K/ L 0.04-0.36 BASOPHILS ABSOLUTE COUNT (BEAKER) (test ekag=455) 0.06 K/ L 0.01-0.08 IMMATURE GRANULOCYTES-RELATIVE PERCENT (BEAKER) (test dpne=8545) 1 % 0-1 ANTI-NUCLEAR ANTIBODY (BRANDON)2017-05-30 13:18:00* Test Item Value Reference Range Comments ANTI-NUCLEAR ANTIBODY (BRANDON) (BEAKER) (test gigi=288) Negative Negative This is a corrected result. Previous result was Positive on 05/29/2017 at [facility] U/S, ABDOMINAL, WITH [id number] 15:33:00Referring: Dr. Rj Negrete for Exam:->Alcoholic cirrhosis, TIPS. PLease evaluate the TIPS patency, rule out liver lesion, massFINAL REPORT HISTORY : Cirrhosis, assess TIPS for patency COMPARISON : None COMMENT : Complete ultrasound examination of the abdomen with color Doppler and spectral evaluation of the abdominal vasculature was performed. The liver is heterogeneous and nodular in echo-texture without evidence of a focal mass. There is cholelithiasis. There is some pericholecystic fluid/gallbladder wall edema. The gallbladder is distended. The biliary tract is within normal limits with the common bile duct measuring 5 mm in maximum diameter. The visualized portions of the pancreas are within normal limits. The spleen is normal in size and echo- texture measuring 12.0 cm. The right kidney measures 11.6 x 6.4 x 5.9 cm and the left kidney 11.2 x 5.9 x 5.5 cm in maximum size. There is no evidence of cysts, masses, stones or hydronephrosis. No pleural effusion is seen. The abdominal aorta measures to a maximum of 2.3 cm. The main portal vein demonstrates hepatopetal flow and measures 1.6 cm in diameter with a peak systol ic velocity of 0.35 m/s. The left and right portal veins demonstrates hepatofuga l flow. The right portal vein was unable to be visualized. No thrombus is identi fied in the portal veins. The resistive index of the proper hepatic artery is 0. 77 with an acceleration time of 0.06 sec. The resistive index of the right hepat ic artery is 0.76 and of the left hepatic artery is 0.69. There is a patent tip s shunt with velocities of 0.91, 0.80 and 1.14 m/s in the proximal, mid and dist al TIPS shunt. The visualized IVC, hepatic and splenic veins are patent with deja ropriate directional flow. IMPRESSION : 1. Cirrhotic morphology of the liver. 2 . Cholelithiasis with some pericholecystic fluid/gallbladder wall edema. The gal lbladder is slightly distended. If there is a clinical concern for acute cholecy stitis, findings should be correlated with a nuclear medicine HIDA scan. 3. Cisneros nt TIPS shunt. No significant velocity gradient is seen within the TIPS shunt. S igned: Austin Dodson Verified Date/Time: 05/29/2017 15:33:27 Reading Lo cation: OQMT 10th [facility] Radiology Reading Room DON TITER AND [id number] 13:28:00* Test Item Value Reference Range Comments BRANDON TITER (BEAKER) (test akwe=0286) :640 BRANDON PATTERN (BEAKER) (test azuf=9996) Cytoplasmic/Anti-smooth muscle antibodies - see comment Cytoplasmic staining is present suggestive of Anti-smooth muscle antibodies. If clinically indicated, recommend testing for Anti-smooth muscle antibodies. [id number] 17:25:00* Test Item Value Reference Range Comments FERRITIN (BEAKER) (test aaht=218) 68 ng/mL 5-275 BASIC METABOLIC [id number] 15:58:00* Test Item Value Reference Range Comments SODIUM (BEAKER) (test rnsu=563) 138 meq/L 136-145 POTASSIUM (BEAKER) (test aldv=277) 3.5 meq/L 3.5-5.1 CHLORIDE (BEAKER) (test dabp=561) 109 meq/L 98-107 CO2 (BEAKER) (test yuci=298) 22 meq/L 22-29 BLOOD UREA NITROGEN (BEAKER) (test yqrj=706) 11 mg/dL 7-21 CREATININE (BEAKER) (test vbip=770) 0.66 mg/dL 0.57-1.25 GLUCOSE RANDOM (BEAKER) (test ytmy=015) 122 mg/dL 70-105 CALCIUM (BEAKER) (test vvsd=395) 7.7 mg/dL 8.4-10.2 EGFR (BEAKER) (test urgm=6514) 92 mL/min/1.73 sq m ESTIMATED GFR IS NOT ACCURATE CREATININE CLEARANCE IN PREDICTING GLOMERULAR FILTRATION RATE. ESTIMATED GFR IS NOT APPLICABLE FOR DIALYSIS PATIENTS. Specimen moderately ictericPT/[id number] 15:36:00* Test Item Value Reference Range Comments PROTIME (BEAKER) (test vpon=620) 26.8 seconds 11.7-14.7 INR (BEAKER) (test klea=636) 2.5 <=5.9 PARTIAL THROMBOPLASTIN TIME (BEAKER) (test ofnj=122) 53.5 seconds 22.5-36.0 RECOMMENDED COUMADIN/WARFARIN INR THERAPY RANGESSTANDARD DOSE: 2.0 - 3.0 Inclu abi: PROPHYLAXIS for venous thrombosis, systemic embolization; TREATMENT for fam ous thrombosis and/or pulmonary embolus.HIGH RISK: Target INR is 2.5-3.5 for pat ients with mechanical heart valves.HEPATITIS B SURFACE [id number] 15:25:00* Test Item Value Reference Range Comments HEPATITIS B SURFACE ANTIBODY (BEAKER) (test nclo=899) < mIU/mL <8.0 HEPATITIS A ANTIBODY, [id number] 15:25:00* Test Item Value Reference Range Comments HEPATITIS A IGG ANTIBODY (BEAKER) (test utsf=4175) Reactive Nonreactive ALPHA FETOPROTEIN (AFP), TUMOR [id number] 15:24:00* Test Item Value Reference Range Comments ALPHA-FETOPROTEIN (BEAKER) (test oifz=8462) 4.7 ng/mL <10.0 HEPATITIS B CORE ANTIBODY, [id number] 15:24:00* Test Item Value Reference Range Comments HEPATITIS B CORE TOTAL ANTIBODY (BEAKER) (test iytm=256) Nonreactive Nonreactive HEPATITIS B SURFACE [id number] 15:23:00* Test Item Value Reference Range Comments HEPATITIS B SURFACE ANTIGEN (2) (BEAKER) (test lnla=3514) Nonreactive Nonreactive CBC W/PLT COUNT & AUTO [id number] 15:22:00* Test Item Value Reference Range Comments WHITE BLOOD CELL COUNT (BEAKER) (test nivs=610) 7.4 K/ L 3.5-10.5 RED BLOOD CELL COUNT (BEAKER) (test qjpn=818) 2.81 M/ L 3.93-5.22 HEMOGLOBIN (BEAKER) (test eiqx=150) 9.3 GM/DL 11.2-15.7 HEMATOCRIT (BEAKER) (test plkp=669) 28.7 % 34.1-44.9 MEAN CORPUSCULAR VOLUME (BEAKER) (test yxwe=287) 102.1 fL 79.4-94.8 MEAN CORPUSCULAR HEMOGLOBIN (BEAKER) (test qusw=869) 33.1 pg 25.6-32.2 MEAN CORPUSCULAR HEMOGLOBIN CONC (BEAKER) (test ttuv=265) 32.4 GM/DL 32.2-35.5 RED CELL DISTRIBUTION WIDTH (BEAKER) (test vxbx=319) 16.7 % 11.7-14.4 PLATELET COUNT (BEAKER) (test bfce=642) 59 K/CU MM 150-450 MEAN PLATELET VOLUME (BEAKER) (test kdbw=268) 11.5 fL 9.4-12.3 NUCLEATED RED BLOOD CELLS (BEAKER) (test nqre=162) 0 /100 WBC 0-0 NEUTROPHILS RELATIVE PERCENT (BEAKER) (test tywp=560) 55 % LYMPHOCYTES RELATIVE PERCENT (BEAKER) (test nknv=322) 32 % MONOCYTES RELATIVE PERCENT (BEAKER) (test wfao=319) 10 % EOSINOPHILS RELATIVE PERCENT (BEAKER) (test qsir=810) 1 % BASOPHILS RELATIVE PERCENT (BEAKER) (test ampo=867) 1 % NEUTROPHILS ABSOLUTE COUNT (BEAKER) (test jole=416) 4.06 K/ L 1.56-6.13 LYMPHOCYTES ABSOLUTE COUNT (BEAKER) (test drob=220) 2.35 K/ L 1.18-3.74 MONOCYTES ABSOLUTE COUNT (BEAKER) (test upuz=906) 0.76 K/ L 0.24-0.36 EOSINOPHILS ABSOLUTE COUNT (BEAKER) (test ydym=069) 0.09 K/ L 0.04-0.36 BASOPHILS ABSOLUTE COUNT (BEAKER) (test aevi=027) 0.05 K/ L 0.01-0.08 IMMATURE GRANULOCYTES-RELATIVE PERCENT (BEAKER) (test cyhz=7904) 1 % 0-1 IRON, TIBC, % SAT. (WITHOUT FERRITIN)2017-05-28 15:11:00* Test Item Value Reference Range Comments IRON (BEAKER) (test ruso=263) 45 ug/dL 40-160 TOTAL IRON BINDING CAPACITY (BEAKER) (test kerj=313) 269 ug/dL 250-450 IRON % SATURATION (2) (BEAKER) (test uhdn=7017) 17 % 20-55 BILIRUBIN, [id number] 14:51:00* Test Item Value Reference Range Comments BILIRUBIN DIRECT (BEAKER) (test xsgn=247) 4.6 mg/dL 0.1-0.5 COMPREHENSIVE METABOLIC [id number] 14:51:00* Test Item Value Reference Range Comments TOTAL PROTEIN (BEAKER) (test lwwm=301) 6.3 gm/dL 6.0-8.3 ALBUMIN (BEAKER) (test hoki=9941) 2.2 g/dL 3.5-5.0 ALKALINE PHOSPHATASE (BEAKER) (test qqop=349) 272 U/L 40-150 BILIRUBIN TOTAL (BEAKER) (test sldq=174) 7.8 mg/dL 0.2-1.2 SODIUM (BEAKER) (test weyr=054) 140 meq/L 136-145 POTASSIUM (BEAKER) (test vbxf=596) 3.4 meq/L 3.5-5.1 CHLORIDE (BEAKER) (test bjmu=969) 107 meq/L 98-107 CO2 (BEAKER) (test mmel=063) 26 meq/L 22-29 BLOOD UREA NITROGEN (BEAKER) (test nlvl=878) 11 mg/dL 7-21 CREATININE (BEAKER) (test xtpi=049) 0.65 mg/dL 0.57-1.25 GLUCOSE RANDOM (BEAKER) (test tfbd=817) 96 mg/dL 70-105 CALCIUM (BEAKER) (test njit=917) 8.0 mg/dL 8.4-10.2 AST (SGOT) (BEAKER) (test huqs=323) 61 U/L 5-34 ALT (SGPT) (BEAKER) (test usur=739) 42 U/L 6-55 EGFR (BEAKER) (test jkna=5303) 94 mL/min/1.73 sq m ESTIMATED GFR IS NOT ACCURATE CREATININE CLEARANCE IN PREDICTING GLOMERULAR FILTRATION RATE. ESTIMATED GFR IS NOT APPLICABLE FOR DIALYSIS PATIENTS. Specimen moderately ictericGAMMA GLUTAMYL TRANSFERASE (GGT)2017-05-28 14:51:00* Test Item Value Reference Range Comments GAMMA GLUTAMYL TRANSFERASE (BEAKER) (test eukc=989) 31 U/L 9-64 Specimen moderately ictericPROTHROMBIN TIME/[id number] 14:19:00* Test Item Value Reference Range Comments PROTIME (BEAKER) (test evxc=845) 25.3 seconds 11.7-14.7 INR (BEAKER) (test hksa=918) 2.3 <=5.9 RECOMMENDED COUMADIN/WARFARIN INR THERAPY RANGESSTANDARD DOSE: 2.0 - 3.0 Inclu abi: PROPHYLAXIS for venous thrombosis, systemic embolization; TREATMENT for fam ous thrombosis and/or pulmonary embolus.HIGH RISK: Target INR is 2.5-3.5 for pat ients with mechanical heart valves.CBC W/PLT COUNT & AUTO [id number] 14:18:00* Test Item Value Reference Range Comments WHITE BLOOD CELL COUNT (BEAKER) (test zboi=657) 7.3 K/ L 3.5-10.5 RED BLOOD CELL COUNT (BEAKER) (test acmg=814) 2.95 M/ L 3.93-5.22 HEMOGLOBIN (BEAKER) (test scmc=812) 9.6 GM/DL 11.2-15.7 HEMATOCRIT (BEAKER) (test xlgi=159) 30.2 % 34.1-44.9 MEAN CORPUSCULAR VOLUME (BEAKER) (test orpr=862) 102.4 fL 79.4-94.8 MEAN CORPUSCULAR HEMOGLOBIN (BEAKER) (test hnzg=024) 32.5 pg 25.6-32.2 MEAN CORPUSCULAR HEMOGLOBIN CONC (BEAKER) (test dwiz=704) 31.8 GM/DL 32.2-35.5 RED CELL DISTRIBUTION WIDTH (BEAKER) (test khia=809) 16.7 % 11.7-14.4 PLATELET COUNT (BEAKER) (test gnde=375) 63 K/CU MM 150-450 MEAN PLATELET VOLUME (BEAKER) (test vfmc=062) 10.6 fL 9.4-12.3 NUCLEATED RED BLOOD CELLS (BEAKER) (test uvjj=651) 0 /100 WBC 0-0 NEUTROPHILS RELATIVE PERCENT (BEAKER) (test evnn=494) 56 % LYMPHOCYTES RELATIVE PERCENT (BEAKER) (test rsfm=411) 32 % MONOCYTES RELATIVE PERCENT (BEAKER) (test wcoy=141) 9 % EOSINOPHILS RELATIVE PERCENT (BEAKER) (test epbu=375) 1 % BASOPHILS RELATIVE PERCENT (BEAKER) (test mhta=365) 1 % NEUTROPHILS ABSOLUTE COUNT (BEAKER) (test dnwg=540) 4.11 K/ L 1.56-6.13 LYMPHOCYTES ABSOLUTE COUNT (BEAKER) (test tocu=232) 2.32 K/ L 1.18-3.74 MONOCYTES ABSOLUTE COUNT (BEAKER) (test tszc=198) 0.69 K/ L 0.24-0.36 EOSINOPHILS ABSOLUTE COUNT (BEAKER) (test mypk=046) 0.10 K/ L 0.04-0.36 BASOPHILS ABSOLUTE COUNT (BEAKER) (test hstr=157) 0.07 K/ L 0.01-0.08 IMMATURE GRANULOCYTES-RELATIVE PERCENT (BEAKER) (test vedv=3385) 1 % 0-1
[2019-02-26 12:30] VITALS: BP 130/85
--- NOTE | 2019-03-28 17:19 | Operative Report ---
DATE OF PROCEDURE: 02/26/2019 SURGEON: Debi Sampson MD PREOPERATIVE DIAGNOSES: 1. Bilateral breast hypomastia. 2. Bilateral old intact silicone gel breast implants, submuscular. POSTOPERATIVE DIAGNOSES: 1. Bilateral breast hypomastia. 2. Bilateral old intact silicone gel breast implants, submuscular. PROCEDURE PERFORMED: 1. Removal of bilateral old intact silicone gel breast implant, submuscular. 2. Bilateral breast augmentation mammoplasty, submuscular with new silicone gel breast implants, [place] Smooth Round High Profile Xtra SHPX-650. SN number on the right [id number]. SN number on the left [id number]. ANESTHESIA: LMA. INDICATIONS FOR SURGERY: This is a 59-year-old female, who has had bilateral breast augmentation with silicone gel implants in the past and complains of bilateral breast hypomastia and desires removal of bilateral old intact silicone gel breast implants and replacement with new silicone gel breast implants Xtra. She has chosen [place] Smooth Round High Profile Xtra 650 mL [place] silicone gel implants. The risks, alternatives and possible complications of the above procedure were explained to the patient. These include, but are not limited to, bleeding, infection, bruising, swelling, scarring, unsatisfactory aesthetic results, capsular contracture, exposure of failure of silicone gel implants, loss of nipple sensation, breast asymmetry, and possible need for further surgery. The patient had an opportunity to ask questions and all of her questions answered and agreed to proceed with proposed procedure. PROCEDURE IN DETAIL: The patient was marked in the preoperative holding area. She was then taken to the operating room and placed supine on the operating table. After adequate general anesthesia, the patient's bilateral breasts were prepped and draped in the usual surgical fashion. Attention was then turned to the patient's previous inframammary incision. An incision was made along the previous incisions with #15 blade. Tissue was dissected down to the breast capsule with the help of the Bovie. The old silicone gel breast implants were removed and they were both intact. The breast pocket was then irrigated with normal saline with antibiotic solution. Lateral capsulorrhaphies were performed on both breasts with interrupted #0 Ethibond sutures in order to close the lateral breast pocket. After performing the capsulorrhaphies, the breast pockets were irrigated with normal saline with antibiotic solution and checked for hemostasis and symmetry. They appear to be symmetric. The new silicone gel breast implants were then placed in each pocket. They were [place] Smooth Round High Profile Xtra 650 mL. The patient was placed in the sitting position and the two breasts were checked for symmetry. They appeared to be symmetric. The inframammary incisions were then closed with 2 layers of interrupted 3-0 Vicryl sutures in a running subcuticular 3-0 PDO Quill suture. The incisions were covered with Steri-Strips, 4x4s, and the patient was wrapped with a large 6-inch Ga wrap. She tolerated the procedure well. There were no immediate complications. The needle and instrument count was correct. At the end of the case, the breast appears symmetric at the end of the case and she was transferred, extubated to the recovery room. MD SARA Cosby/MODCheyanne /[id number]
== END | disposition home or self-care (01) ==
LOC: OR 05:00
PROVIDERS: ATTEND Plastic Surgery
DX: N64.82 Hypoplasia of breast (principal); F41.9 Anxiety disorder, unspecified; K74.60 Unspecified cirrhosis of liver; K21.9 Gastro-esophageal reflux disease without esophagitis; K58.9 Irritable bowel syndrome, unspecified; Z87.891 Personal history of nicotine dependence; Z01.810 Encounter for preprocedural cardiovascular examination; Z01.812 Encounter for preprocedural laboratory examination
CPT/HCPCS: 19328; 19340; 36415; 80053; 85025; 85610; 85730; 86850; 86900; 93005; J0690; J1170; J2001; J2405; J2550; J2704; J2765; J3010

== ENCOUNTER → 2019-09-02 | Day surgery (SDC) | payer SELFPAY ==
[2019-09-01 13:40] LABS: BASOPHILS # (AUTO) 0.1 (0.0-0.1); BASOPHILS % 0.8 % (0.0-1.0); EOSINOPHILS # (AUTO) 0.1 (0.0-0.4); EOSINOPHILS % 1.7 % (0.0-6.0); HEMATOCRIT 35.9 % (34.2-44.1); HEMOGLOBIN 11.4 g/dL (12.0-16.0); LYMPHOCYTES # (AUTO) 2.3 (1.0-3.2); LYMPHOCYTES % 37.2 % (18.0-39.1); MEAN CORPUSCULAR HEMOGLOBIN 26.5 pg (28-32); MEAN CORPUSCULAR HGB CONC 31.8 g/dL (31-35); MEAN CORPUSCULAR VOLUME 83.5 fL (81-99); MONOCYTES # (AUTO) 0.5 (0.2-0.8); MONOCYTES % 8.1 % (4.4-11.3); NEUTROPHILS # (AUTO) 3.1 (2.1-6.9); NEUTROPHILS % 51.9 % (38.7-80.0); PLATELET COUNT 97 x10e3/uL (140-360); RED CELL DISTRIBUTION WIDTH 16.5 % (11.7-14.4)
[2019-09-01 13:51] LABS: INR 1.24; PROTHROMBIN TIME 16.4 seconds (11.9-14.5)
[2019-09-01 14:00] LABS: ALANINE AMINOTRANSFERASE 20 IU/L (0-55); ALBUMIN 3.5 g/dL (3.5-5.0); ALBUMIN/GLOBULIN RATIO 1.2 (0.8-2.0); ALKALINE PHOSPHATASE 188 IU/L (40-150); BLOOD UREA NITROGEN 11 mg/dL (7-26); BUN/CREATININE RATIO 14 (6-25); CALCIUM 9.4 mg/dL (8.4-10.2); CARBON DIOXIDE 31 mmol/L (22-29); CHLORIDE 102 mmol/L (98-107); CREATININE, SERUM 0.77 mg/dL (0.57-1.11); EST GLOMERULAR FILTRATION RATE > 60 ML/MIN (60-); GLUCOSE 93 mg/dL (74-118); SODIUM 139 mmol/L (136-145)
[~2019-09-02] MED LIST changes: +BUPIVACAINE 0.25% 30ML SDV INJ ONE; -CISATRACURIUM BESYLATE IV ONE; +DEXAMETHASONE SOD PHOS INJ 4 MG/ML VIAL ONE; +EPINEPHRINE HCL 1:1000 1ML 1 MG/ML AMP ONE; -FAMOTIDINE 20 MG/2 ML VIAL IV ONE; +GLYCOPYRROLATE INJ 0.2 MG/ML VIAL ONE; +HYDROMORPHONE 1MG/1ML INJ ONE; -HYDROMORPHONE 2MG/ML 2 MG/ML ML ONE; +LIDOCAINE 1% W/EPINEPHRINE 20 ML VIAL ONE; +LIDOCAINE HCL 1% 30ML-PF VIAL ONE; -METOCLOPRAMIDE HCL 10 MG/2ML VIAL ONE; +MIDAZOLAM HCL 2 MG/2 ML VIAL ONE; +NAUSEA MED; +NEOSTIGMINE 1 MG/ML 10ML VIAL ONE; +PANTOPRAZOLE SO40 MG PO; -PROMETHAZINE HCL (IM) 25 MG/ML VIAL ONE; +ROCURONIUM BROMIDE 10 MG/ML 5ML VIAL ONE; +SCOPOLAMINE 1.5 MG PATCH ONE; -SODIUM CHLORIDE 0.9% 50ML 50 ML ONE; +XYZAL2.5 MG/5 M; +ZOFRAN8 MG PO; +ZYRTEC10 M3 PO
[2019-09-02 14:25] VITALS: BP 117/68
--- NOTE | 2019-10-07 19:12 | Operative Report ---
DATE OF PROCEDURE: 09/02/2019 SURGEON: Debi Sampson MD PREOPERATIVE DIAGNOSES: 1. Bilateral breast hypomastia. 2. Bilateral old silicone gel breast implants, submuscular. 3. Depressed scar of left hip. 4. Lipodystrophy of abdomen, bilateral flanks and bilateral inner thighs. POSTOPERATIVE DIAGNOSES: 1. Bilateral breast hypomastia. 2. Bilateral old silicone gel breast implants, submuscular. 3. Depressed scar of left hip. 4. Lipodystrophy of abdomen, bilateral flanks and bilateral inner thighs. PROCEDURES PERFORMED: 1. Removal of bilateral old intact silicone gel breast implants, submuscular. 2. Bilateral breast augmentation, mammoplasty, submuscular with new silicone gel breast implants, [place] MemoryGel Xtra Smooth High Profile Xtra 755 mL. SN number on the left is [id number] and SN number on the right is [id number]. 3. Suction-assisted lipectomy of abdomen, bilateral flanks and bilateral inner thighs. Total tumescent fluid injected was 2800 mL. Total aspirated out was 1000 mL. 4. Fat transfer to left hip depressed scar, 180 mL of purified fat transferred to left hip. ANESTHESIA: General endotracheal. INDICATIONS FOR SURGERY: This is a 59-year-old female who has had previous breast augmentation and complains of bilateral breast hypomastia and desires removal of bilateral old intact silicone gel breast implants and replacement with larger silicone gel breast implants Xtra. The patient has selected [place] smooth round high profile Xtra SHPX 755 mL silicone gel implants. The patient also complaints lipodystrophy of abdomen, bilateral flanks, and bilateral inner thighs and desires suction-assisted lipectomy of those areas. 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 She desires fat transfer to the left hip depressed scar. The risks, alternatives, and possible complications of the above procedures were explained to the patient. These include, but are not limited to, bleeding, infection, scarring, bruising, swelling, capsular contracture, exposure of failure of silicone gel implants Xtra, loss of nipple sensation, breast symmetry, unsatisfactory esthetic result, lumpiness, failure of fat transfer, deep venous thrombosis, pulmonary embolism, bruising, swelling, depressions and irregularities at the areas of liposuction recurrence of lipodystrophy and possible need for further surgery. The patient had an opportunity to ask questions and have the questions answered, and agreed to proceed with the proposed procedure. PROCEDURE IN DETAIL: The patient was marked in the preoperative holding area. She was then taken to the operating room and placed supine on the operating table. After adequate general anesthesia, the patient's bilateral breasts, abdomen, flanks, inner thighs, and left hip were prepped and draped in the usual surgical fashion. Attention was then turned first to the patient's breasts. An incision was made along the previous inframammary scar with #15 blade. The tissue was dissected down to the breast capsule with the help of the Bovie. The old silicone gel breast implants were removed and they were 650 mL and they were intact. The breast pocket was then irrigated with normal saline with antibiotic solution and the new silicone gel breast implants, which were [place] smooth, round, high profile, Xtra SHPX 755 mL were placed in each pocket. The inframammary incisions were then closed with 2 layers of interrupted 3-0 Vicryl sutures and a running subcuticular 3-0 Monoderm Quill suture. After completion of the bilateral breast augmentation mammoplasty, attention was turned to the patient's abdomen, flanks, and inner thigh. Through 2 small incisions in the lower abdomen, tumescent fluid was injected into the patient's abdomen Approximately 1000 mL. Through the same incisions, 500 mL of tumescent was injected in each flank area. A small incision was made in each groin area and 400 mL of tumescent fluid was injected in each medial thigh area. After adequate time was given for the tumescent to act, suction-assisted lipectomy was undertaken with #3 mm cannula and the aspirated fluid was collected in a Puregraft bag for further fat purification. Approximately 500 mL of aspirate was removed from the patient's abdomen, 100 mL of aspirate was removed from each flank area, and 150 mL of aspirate was removed from each medial thigh area. After completion of the suction-assisted lipectomy, the liposuction incisions were closed with a single suture of 5-0 chromic. The aspirated fat was purified using the Solaicx Puregraft fat purification system. The purified fat was loaded into 10 mL syringes and injected into the left hip depressed scar. Prior to injected the fat, the depressed scar was carefully released with a #18 gauge needle in a subcision fashion. After releasing the depressed scar with 18-gauge needle, 180 mL of purified fat was transferred in the left hip area where previously marked. After completion of the case, Steri-Strips were placed along each inframammary incision. The liposuction incisions were covered with ABD pads. The fat transfer of the left hip was covered with Xeroform and ABD pads. 4x4s were placed along the inframammary incision, and a surgical bra and compression garment was placed on the patient. She tolerated the procedure well. There were no immediate complications. The needle and instrument count was correct at the end of the case and she was transferred extubated to the recovery room. Debi Sampson MD EGG/MODL /[id number]
== END | disposition home or self-care (01) ==
LOC: OR 07:13
PROVIDERS: ATTEND Plastic Surgery
DX: N64.82 Hypoplasia of breast (principal); L90.5 Scar conditions and fibrosis of skin; E88.1 Lipodystrophy, not elsewhere classified; K74.60 Unspecified cirrhosis of liver; D64.9 Anemia, unspecified; D69.6 Thrombocytopenia, unspecified; K58.9 Irritable bowel syndrome, unspecified; K21.9 Gastro-esophageal reflux disease without esophagitis; Z01.810 Encounter for preprocedural cardiovascular examination; Z01.812 Encounter for preprocedural laboratory examination; Z01.818 Encounter for other preprocedural examination; Z87.891 Personal history of nicotine dependence
CPT/HCPCS: 15771; 15772 ×3; 19328; 19340; 36415; 80053; 85025; 85610; 85730; 86850; 86900; 93005; J0171; J0690; J1100; J1170; J2001 ×2; J2250; J2405; J2704; J2710; J3010